=== PATIENT | male | born 1970 | race Caucasian/White ===

== ENCOUNTER 2020-04-12 00:05 | Outpatient (CLI) | payer OTHER, SELFPAY ==
[2020-04-12 19:22] LABS: SARS-CoV-2 RNA PCR Negative
== END 2020-04-12 00:06 | disposition home or self-care (01) ==
LOC: ANHCOVIDDT 00:06
PROVIDERS: PCP Nurse Practitioner Family; Visit Provider Internal Medicine Gastroenterology
DX: Z01.812 Encounter for preprocedural laboratory examination (principal); Z11.59 Encounter for screening for other viral diseases
CPT/HCPCS: 87635; C9803; U0003

== ENCOUNTER 2020-04-15 01:56 | Day surgery (SDC) | payer OTHER, SELFPAY ==
[2020-04-11 12:18] VITALS: BMI 25.9
[2020-04-15 08:16] VITALS: BP 131/82; PULSE 66; RESP 16; TEMP 36.5; O2SAT 98; BMI 25.5
--- NOTE | 2020-04-15 08:24 | P.HP_ITS ---
History of Present Illness History of Present Illness Consent: Risks, benefits, and alternatives have been discussed and questions answered. Patient agrees to proceed with procedure. Chief complaint: Neoplasm Screening Narrative: Eulalio Chavarria is a 49 year old W male referred for his 1st screening colonoscopy. Patient is asymptomatic and there is no known family history of colon polyps or colon cancer. [facility] Past Medical History Medical History (Updated 04/15/20 @ 08:25 by Chon Ramos MD) Dyslipidemia Hypertension Hypothyroidism Surgical History Surgical History (Updated 04/15/20 @ 08:26 by Chon Ramos MD) History of arthroscopy of left shoulder S/P left knee arthroscopy Meds Home Medications and Allergies Home Medications Medication Instructions Recorded Confirmed Type amlodipine 5 mg PO QAM 04/11/20 04/11/20 History atorvastatin 20 mg PO QAM 04/11/20 04/11/20 History levothyroxine 125 mcg PO QAM 04/11/20 04/11/20 History losartan 100 mg PO QAM 04/11/20 04/11/20 History Allergies Allergy/AdvReac Type Severity Reaction Status Date / Time Penicillins Allergy Unknown Swelling Verified 04/15/20 08:15 Vital Signs Vital Signs - 24 hr 04/15/20 08:16 Temperature 36.5 C Pulse Rate 66 Respiratory Rate 16 Blood Pressure 131/82 Pulse Oximetry 98 Exam Const: Orientation/consciousness: patient oriented x3 Resp: Auscultation: clear to auscultation bilaterally Cardio: Rate: regular rate Rhythm: regular rhythm Heart sounds: no murmurs GI: GI Palp: Yes Soft to palpation, No Tenderness to palpation present (GI), Yes No hepatosplenomegaly present and No Palpable mass present Auscultation: normal bowel sounds Neuro: General: patient oriented x3 and no focal motor deficits Extrem: General: no pedal edema Assessment and Plan Additional Plan screening colonoscopy in average risk patient
[2020-04-15] MEDS: LACTATED RINGERS 1,000 ML 150 ML IV CONT (08:30)
--- NOTE | 2020-04-15 08:34 | WPDANESEPPF ---
Anes - Initial Pre Proc Eval Procedure: Operation Date: 04/15/20 09:30 Proposed Procedures p Screening Colonoscopy - Chon Ramos MD Date/Time: 04/15/20 08:34 Surgeon: Chon Ramos MD Pre Op Diagnosis: Neoplasm Screening Patient Data Age: 49 Gender: M Height: 6 ft Weight: 85.4 kg Last Vital Signs Temp 36.5 C 04/15/20 08:16 Pulse 66 04/15/20 08:16 Resp 16 04/15/20 08:16 BP 131/82 04/15/20 08:16 Pulse Ox 98 04/15/20 08:16 Allergies Allergy/AdvReac Type Severity Reaction Status Date / Time Penicillins Allergy Unknown Swelling Verified 04/15/20 08:15 Home Medications Medication Instructions Recorded Confirmed Type amlodipine 5 mg PO QAM 04/11/20 04/11/20 History atorvastatin 20 mg PO QAM 04/11/20 04/11/20 History levothyroxine 125 mcg PO QAM 04/11/20 04/11/20 History losartan 100 mg PO QAM 04/11/20 04/11/20 History Patient hx anesthesia problems: none Family hx anesthesia problems: none PMFSH Past Medical History Medical History Dyslipidemia Hypertension Hypothyroidism Surgical History Surgical History History of arthroscopy of left shoulder S/P left knee arthroscopy Anes - Eval Final PreProcedure Day of Procedure 04/15/20 08:34 Patient weight: normal Heart: regular rate and rhythm Lungs: clear to auscultation Airway: Mallampati scale class 1 Neurological: alert and oriented Last oral intake: >/= 8 hours ASA classification: II Emergent: no Anesthetic plan: proceed Anesthesia type and monitoring: general GIVS and standard monitoring Informed Consent: The patient's anesthetic plan and its attendant risks and benefits were discussed with the patient/family/POA. Questions were solicited and answers provided to the satisfaction of the patient/family/POA.
[2020-04-15 10:10] VITALS: BP 106/69; PULSE 65; RESP 15; O2SAT 94
[2020-04-15 10:22] VITALS: BP 106/66; PULSE 62; RESP 13; O2SAT 94
[2020-04-15 10:30] VITALS: BP 112/72; PULSE 54; RESP 17; O2SAT 96
[2020-04-15 10:46] VITALS: BP 121/82; PULSE 56; RESP 19; O2SAT 97
--- NOTE | 2020-04-15 10:49 | SUR.PHASEII ---
MD Arellano came out to speak with pt at 1016. pt still sleeping at that time. stated exam was normal to have pt call if he has further questions. pt notified.
== END 2020-04-15 10:51 | disposition home or self-care (01) ==
PROVIDERS: PCP Nurse Practitioner Family; Visit Provider Internal Medicine Gastroenterology
PROC: 0DJD8ZZ Inspection of Lower Intestinal Tract, Via Natural or Artificial Opening Endoscopic (ICD-10-PCS; CPT 45378; principal; 2020-04-15 09:30)
DX: Z12.11 Encounter for screening for malignant neoplasm of colon (principal); K64.0 First degree hemorrhoids; K64.4 Residual hemorrhoidal skin tags; I10 Essential (primary) hypertension; E78.5 Hyperlipidemia, unspecified; E03.9 Hypothyroidism, unspecified; Z79.899 Other long term (current) drug therapy
CPT/HCPCS: G0121; 87635; C9803; J2704; J7120; U0003

== ENCOUNTER → 2020-06-13 16:36 | Outpatient (CLI) | payer OTHER, SELFPAY ==
--- NOTE | ~2020-06-13 | XR_ITS ---
XR knee LT 3V 06/13/2020 16:46 INDICATION: Left knee pain PROCEDURE: 3 views left knee COMPARISON: 07/25/2010. FINDINGS: Fracture, dislocation or subluxation is not identified. No significant joint effusion. The soft tissues appear within normal limits. No foreign bodies are identified. IMPRESSION: 1: NO ACUTE BONE OR JOINT ABNORMALITY IDENTIFIED. Reviewed, dictated and finalized at location B.
== END ==
PROVIDERS: PCP Nurse Practitioner Family; Visit Provider Nurse Practitioner Family
DX: M25.562 Pain in left knee (principal)
CPT/HCPCS: 73562

== ENCOUNTER → 2020-08-07 11:00 | Outpatient (CLI) | payer OTHER, SELFPAY ==
--- NOTE | ~2020-08-07 | MR_ITS ---
EXAMINATION: MR knee LT wo con DATE: 08/07/2020 11:42 INDICATION: Meniscal tear presenting with worsening generalized and posterior left knee pain TECHNIQUE: Magnetic resonance imaging (MRI) of the left knee was performed without intravenous contra st. Sequences included coronal PD-weighted FSE, coronal PD-weighted FS FSE, sagittal T2-weighted FSE , sagittal PD-weighted FS FSE and axial PD weighted fat saturated FSE. COMPARISON: Left knee radiographs dated 06/13/2020 and MRI dated 07/31/2010 FINDINGS: Medial compartment: Medial meniscus is normal. Shallow chondral ulceration and fissuring involving less than 50% the cart ilage thickness bilaterally at the junction of the anterior to central weightbearing medial femoral c ondyle. Lateral compartment: Lateral meniscus is normal. Partial-thickness chondral fissure involving less than 50% the cartilage thickness extending horizontally across the anterior weightbearing lateral femoral condyle the level of the free edge of the posterior horn of the meniscus. Additional small region of partial-thickness chondral fissuring without degenerative subchondral changes at the lateral aspect of the posterior mo st weightbearing lateral femoral condyle. Mild chondral surface regularity along the posterior aspect of the lateral tibial plateau. Patellofemoral compartment: Interval decrease in patellar cartilage thickness with chondral surface irregularity involving signif icant portions of the medial and lateral facets and intervening apical ridge. Small deeper chondral u lceration with tiny focus of subarticular edema at the central aspect of the medial facet. Additional deep chondral ulceration with surface irregularity at the caudal two thirds of the trochlear groove and immediately adjacent portions of the medial and lateral patellar facets. Suggestion of tiny centr al subchondral osteophytes at the central portion of the trochlear groove. Less severe partial thickn ess cartilage loss with smooth chondral surface along the more lateral aspect of the lateral trochlea . Ligaments and tendons: Posterior cruciate ligament is normal. The anterior cruciate ligament demonstrates a normal angle rel ative to Blumenstaat's line. It appears thickened with increased intrasubstance signal surrounding in tact appearing linear fibers with a celery stalk appearance. No secondary signs of ligament tear an d this is consistent with mucoid degeneration without discrete tear. The medial collateral ligament a nd fibular collateral ligament complex are normal. The extensor mechanism is normal. The visualized m edial and lateral hamstring tendons as well as the iliotibial band are normal. Fluid: Physiologic amount of fluid in the joint space. No loose osteochondral bodies identified. Osseous/other: Bone alignment is normal. Small low signal intensity at the posterior aspect of the lateral femoral c ondyle. No fracture or pathologic marrow replacing process. And seen is some scarring in Hoffa's fat pad consistent with history of prior arthroscopy. IMPRESSION: 1. Mucoid degeneration of the anterior cruciate ligament without discrete tear. Correlate with physic al exam to assess for degree of residual functional integrity. 2. Still mild tricompartmental osteoarthritis with interval progression of chondromalacia in all 3 co mpartments as detailed above. Reviewed, dictated and finalized at location A. [employer] IMPRESSION: 1. Mucoid degeneration of the anterior cruciate ligament without discrete tear. Correlate with physical exam to assess for degree of residual functional integ rity. 2. Still mild tricompartmental osteoarthritis with interval progression of bisi dromalacia in all 3 compartments as detailed above.
== END ==
PROVIDERS: Visit Provider Specialist
DX: M17.12 Unilateral primary osteoarthritis, left knee (principal)
CPT/HCPCS: 73721

== ENCOUNTER → 2021-07-31 17:21 | Outpatient (CLI) | payer OTHER, SELFPAY ==
--- NOTE | ~2021-07-31 | MR_ITS ---
EXAMINATION: MR knee LT wo con DATE: 07/31/2021 18:07 INDICATION: Left knee pain TECHNIQUE: Magnetic resonance imaging (MRI) of the left knee was performed without intravenous contra st. Sequences included coronal PD-weighted FSE, coronal PD-weighted FS FSE, sagittal T2-weighted FSE , sagittal PD-weighted FS FSE and axial PD weighted fat saturated FSE. COMPARISON: None. FINDINGS: Medial compartment: The medial meniscal body is small suggesting prior partial meniscectomy. There is truncation of the i nner most free edge of the posterior horn which could also be related to prior partial meniscectomy a lthough typically this would come for a more acute point and could not exclude a recurrent tear. The margin of the inner free edge of the posterior horn however appears relatively smooth when viewed en face in the axial images. There is shallow chondral ulceration along the lateral half of the central weightbearing medial femoral condyle. Lateral compartment: Medial displaced could handle tear of the lateral meniscus with a meniscal flap extending anteroposte riorly over the lateral intercondylar eminence. Deep chondral fissure without degenerative subchondra l changes at the central aspect of the anterior weightbearing lateral femoral condyle. Small central subchondral osteophyte underlying additional region of partial-thickness cartilage loss at the vp integrity ior most weightbearing lateral femoral condyle. Patellofemoral compartment: Partial-thickness cartilage loss which appears to involve greater than 50% the cartilage thickness in volving portions of the patellar apical ridge and lateral side of the medial patellar facet. Addition al deep chondral ulceration with additional small underlying central subchondral osteophytes at the t rochlear groove and immediately adjacent medial and lateral trochlea. Ligaments and tendons: Posterior cruciate ligament is normal. The anterior cruciate ligament demonstrates a normal angle rel ative to Blumensaat's line. It appears thickened with increased intrasubstance signal surrounding int act appearing linear fibers with a celery stalk appearance. Consistent with mucoid degeneration wit hout discrete tear. There is prominent thickening without significant increased signal or surrounding edema along the proximal third of the medial collateral ligament consistent with scarring related to chronic sprain. The fibular collateral ligament complex is normal. The extensor mechanism is normal. The visualized medial and lateral hamstring tendons as well as the iliotibial band are normal. Fluid: Physiologic amount of fluid in the joint space. No loose osteochondral bodies identified. Small Cross 's cyst. Osseous/other: There is a linear likely trial tract extending superolaterally from the intercondylar notch into the lateral femoral condyle near the insertion of the anterior cruciate ligament. Correlate with surgical history. Otherwise normal marrow signal. No fracture or abnormal marrow replacing process. There is scarring at the medial and lateral aspects of Hoffa's fat pad consistent with prior arthroscopy. IMPRESSION: 1. Displaced bucket-handle tear of the lateral meniscus. 2. Slight truncation of the inner free edge of the posterior horn of the medial meniscus which could be related to meniscal tear or more likely residual change of prior partial meniscectomy. Correlate w ith surgical history. 3. Mucoid degeneration the anterior cruciate ligament without discrete tear. There is however a possi ble nodule tract arising near its femoral footplate potentially anchor site for prior repair. Again c orrelate with details of prior surgical history. Correlate with physical exam to assess for degree of residual functional integrity. 4. Mild tricompartmental osteoarthritis with extensive moderate and high-grade chondromalacia in the patellofemoral compartme
== END ==
PROVIDERS: Visit Provider Specialist
DX: M17.12 Unilateral primary osteoarthritis, left knee (principal); M71.22 Synovial cyst of popliteal space [Baker], left knee
CPT/HCPCS: 73721

== ENCOUNTER 2022-01-07 23:41 | Emergency (ER) | payer OTHER, SELFPAY ==
--- NOTE | ~2022-01-07 | XR_ITS ---
EXAMINATION: XR abdomen/kub 1V INDICATION: Left ureterolithiasis TECHNIQUE: Supine view the abdomen is obtained. COMPARISON: CT from today FINDINGS: Contrast from earlier CT partially opacifies the urinary tract. There is mild left hydroure teronephrosis continuing into the pelvis. The left distal ureteral stone on CT is not definitely iden tified, likely obscured by contrast within the urinary bladder. The bowel gas pattern is normal. IMPRESSION: 1. Known left ureteral stone not definitely identified, likely obscured by contrast in the urinary bl adder. Reviewed, dictated and finalized at location A. IMPRESSION: 1. Known left ureteral stone not definitely identified, likely obscured by cont rast in the urinary bladder.
--- NOTE | ~2022-01-07 | CT_ITS ---
EXAMINATION: CT abdomen pelvis w con INDICATION: Left flank pain TECHNIQUE: Computed tomographic images of the abdomen and pelvis were obtained after the administrati on of 100 cc of Omnipaque 350 intravenous contrast. The dose-length product (DLP) was 367.42 mGy-cm. Automated exposure control and iterative reconstruction technique were employed. COMPARISON: 12/29/2011 FINDINGS: Minimal dependent atelectasis is present in the lung bases. The heart size is normal. The l iver, spleen, pancreas, gallbladder, and adrenal glands are normal. There is a 5 mm stone of the dist al left ureter which causes mild left hydroureteronephrosis. There are multiple nonobstructing stones of the left kidney which measure up to 7 mm. There is a 7 mm nonobstructing stone of the right kidne y. No pathologically enlarged abdominal or pelvic lymph nodes are identified. There is no free intrap eritoneal gas or evidence of bowel obstruction. There is moderate lumbar spondylosis. A small fat-con taining umbilical hernia is noted. IMPRESSION: 1. 5 mm stone of the distal left ureter which causes mild left hydroureteronephrosis. 2. Bilateral nephrolithiasis. Reviewed, dictated and finalized at location A. IMPRESSION: 1. 5 mm stone of the distal left ureter which causes mild left hydroureteroneph rosis. 2. Bilateral nephrolithiasis.
[2022-01-07 23:44] VITALS: BP 148/91; PULSE 55; RESP 18; TEMP 36.5; O2SAT 99
--- NOTE | 2022-01-07 23:45 | ED.GENADULT ---
HPI - General Adult General Chief complaint: Urogenital-Male <Yoly Cueva PA-C - Last Filed: 01/08/22 03:23> Stated complaint: LT FLANK PAIN <MARIAN Castelan Last Filed: 01/08/22 03:23> Source: patient <MARIAN Castelan Last Filed: 01/08/22 03:23> Mode of arrival: EMS <MARIAN Castelan Last Filed: 01/08/22 03:23> Limitations: no limitations <MARIAN Castelan Last Filed: 01/08/22 03:23> History of Present Illness HPI narrative: Patient is a 51-year-old male who presents to the ED via EMS with report of left flank pain. Patient reports he developed sudden onset of left flank pain 2 hours ago while at home. He tried taking Tylenol at home without relief. EMS was called. He was given 4 mg of morphine and Zofran in the ambulance. Patient denies any improvement of his pain with the morphine. He does report the pain radiates around to his left lower abdomen. He has had some nausea due to the pain, but denies any vomiting, fever, chills, dysuria, hematuria, urinary frequency, diarrhea, constipation. Patient does have a history of a kidney stone 25 years ago. He has seen a urologist in [facility] before. <Yoly Cueva PA-C - Last Filed: 01/08/22 03:23> Related Data Home medications: Home Medications Medication Instructions Recorded Confirmed amlodipine 10 mg PO QAM 04/11/20 04/11/20 atorvastatin 20 mg PO QAM 04/11/20 04/11/20 levothyroxine 150 mcg PO QAM 04/11/20 04/11/20 losartan 100 mg PO QAM 04/11/20 04/11/20 hydrochlorothiazide 12.5 mg PO DAILY 01/07/22 01/07/22 <MARIAN Castelan Last Filed: 01/08/22 03:23> Allergies/adverse reactions: Allergies Allergy/AdvReac Type Severity Reaction Status Date / Time Penicillins Allergy Unknown Swelling Verified 01/07/22 23:49 <MARIAN Castelan Last Filed: 01/08/22 03:23> Review of Systems Review of Systems: CONSTITUTIONAL: Denies fever, chills. CARDIOVASCULAR: Denies chest pain. RESPIRATORY: Denies dyspnea. GASTROINTESTINAL: Reports L lower ABD pain, nausea. Denies vomiting, constipation, or diarrhea. GENITOURINARY: Denies dysuria or hematuria. MUSCULOSKELETAL: Reports L flank pain. Denies joint pain, or myalgia. NEUROLOGIC: Denies headache, numbness, or weakness. <Yoly Cueva PA-C - Last Filed: 01/08/22 03:23> All systems reviewed & are unremarkable except as noted in HPI and below <Yoly Cueva PA-C - Last Filed: 01/08/22 03:23> PMFSH Past Medical History Medical History: Medical History Dyslipidemia Hypertension Hypothyroidism <Yoly Cueva PA-C - Last Filed: 01/08/22 03:23> Surgical History Surgical History: Surgical History History of arthroscopy of left shoulder S/P left knee arthroscopy <Yoly Cueva PA-C - Last Filed: 01/08/22 03:23> Social History Social History: Social History (Updated 01/08/22 @ 02:34 by Yoly Cueva PA-C) Smoking status: Never smoker <Yoly Cueva PA-C - Last Filed: 01/08/22 03:23> Exam Narrative: GENERAL: Well-nourished, non-toxic, in mild acute acute distress. HEAD: Normocephalic, atraumatic. NECK: Supple. No adenopathy, no masses. RESPIRATORY: Airway patent, respirations nonlabored. Clear to auscultation bilaterally, no rales, rhonchi, wheezing. CARDIOVASCULAR: Regular rate and rhythm without murmurs, rubs, or gallops. Peripheral pulses 2+ and equal bilaterally. ABDOMINAL: Soft, mild tenderness to palpation of LLQ and suprapubic ABD, nondistended, no hepatosplenomegaly. Normoactive BS. L CVA tenderness to percussion. MUSCULOSKELETAL: Moves all extremities. Strength/ROM intact without gross deformities or TTP. SKIN: Warm, dry, normal color. No rashes. NEURO: A&O X3. Speech clear. Cranial nerves II-XII grossly intact. Steady gait. No ataxic movements. PSYCHIATRIC: Appropriate mood and affect. Normal inter
[2022-01-08] MEDS: KETOROLAC 30 MG/ML VIAL (*BKC) IV PUSH (00:02)
[2022-01-08 00:17] LABS: Basophils Percent Auto 0.3 % (0.2-1.2); Eosinophils Percent Auto 0.3 % (0-4.4); Hematocrit 43.9 % (42.0-52.0); Immature Granulocyte Absolute 0.05 K/mm3 (0.00-0.031); Immature Granulocyte Percent A 0.5 % (0-0.5); Lymphocytes Absolute Auto 1.86 K/mm3 (0.9-3.2); Lymphocytes Percent Auto 17.5 % (18.3-44.2); Mean Corpuscular HGB Conc 31.9 g/dl (32-36); Mean Corpuscular Volume 97.1 fl (80-100); Mean Platelet Volume 10.1 fl (7.4-10.4); Monocytes Absolute Auto 0.7 K/mm3 (0.1-0.6); Monocytes Percent Auto 6.6 % (2.6-8.5); Neutrophils Percent Auto 74.8 % (45.5-73.1); Platelet Count Result 173 k/mm3 (150-375); Red Blood Count 4.52 M/mm3 (4.6-6.20); Red Cell Distribution Width 12.4 % (11.5-14.5); White Blood Count 10.6 K/mm3 (4.5-10.0)
--- NOTE | 2022-01-08 00:20 | PC.NURSE ---
Pt aware of need for urine specimen but states he is unable to void at this time.
[2022-01-08 00:30] LABS: Alanine Aminotransferase 19 U/L (4-50); Albumin Level 4.4 g/dL (3.5-5.1); Alkaline Phosphatase 48 U/L (38-126); Anion Gap 6 mmol/L (8-16); Aspartate Amino Transferase 26 U/L (17-59); Bilirubin,Total 0.5 mg/dL (0.2-1.3); Blood Urea Nitrogen 22 mg/dL (9-20); Calcium 8.8 mg/dL (8.4-10.2); Carbon Dioxide 30 mmol/L (22-30); Chloride 103 mmol/L (98-107); Estimated CRCL calculation 84 ml/min; Estimated Glomerular Filt Rate > 60; Glucose 120 mg/dL (65-110); Potassium 3.6 mmol/L (3.4-5.0); Sodium 139 mmol/L (137-145)
[2022-01-08 00:32] VITALS: BP 135/86
[2022-01-08] MEDS: HYDROmorphone HCL INJ (*CRX) 1 MG/ML SYR IV PUSH (01:05)
[2022-01-08] MEDS: SODIUM CHLORIDE 0.9% IV 1,000 ML 999 ML IV CONT (02:20)
[2022-01-08 03:01] LABS: Appearance Urine Clear (Clear); Bilirubin Urine Negative (Negative); Blood Urine 2+ (Negative); Color Urine Yellow (Yellow); Glucose Urine UA Negative (Negative); Ketones Urine Negative (Negative); Leukocyte Esterase Ur Negative LEU/UL (Negative); Nitrate Urine Negative (Negative); Protein Urine Negative (Negative); Specific Grav Ur 1.015 (1.001-1.035); Urobilinogen Urine 0.2 mg/dL (<2.0); pH Urine 8.5 (5.0-9.0)
[2022-01-08 03:02] LABS: Add Urine Microscopic? YES; Mucus Urine Few /lpf; RBC Urine 51-75 /hpf (0-2); Squamous Epithelial Cell Urine Rare /hpf (Few)
[2022-01-08] MEDS: HYDROcodone/acetaminophen (*CRX) 5-325 MG TABLET 2 TAB PO (03:25)
[2022-01-08 03:32] VITALS: BP 131/84; PULSE 75; RESP 18; O2SAT 96
== END 2022-01-08 03:35 | disposition home or self-care (01) ==
PROVIDERS: Physician Assistant; Emergency Provider Emergency Medicine; PCP Nurse Practitioner Family
DX: N13.2 Hydronephrosis with renal and ureteral calculous obstruction (principal); E78.5 Hyperlipidemia, unspecified; I10 Essential (primary) hypertension; E03.9 Hypothyroidism, unspecified
CPT/HCPCS: 36415; 74018; 74177; 80053; 81001; 85025; 96361; 96374; 96375; 99284; A4565; A9270; J1170; J1885; J7030; Q9967

== ENCOUNTER 2022-01-09 08:45 | Day surgery (SDC) | payer OTHER, SELFPAY ==
[2022-01-09] VITALS (30 sets, daily range): BP systolic 108–171; BP diastolic 69–95; PULSE 45–74; RESP 10–19; TEMP 36.4–36.6; O2SAT 94–100
--- NOTE | ~2022-01-09 | XR_ITS ---
EXAMINATION: XR fluoroscopy no charge EXAM DATE: 01/09/2022 13:59 INDICATION: Stone removal. TECHNIQUE: Fluoroscopy used during XR fluoroscopy no charge performed by Dr. Richard Stevenson MD. Radiologist was not present for the imaging or procedure. Total fluoroscopic time of 16 seconds. T he DAP for this procedure was 0.17 mGym2. A total of 3 images sent to PACS from the exam. FINDINGS: Fluoroscopic images demonstrates left nephrolithiasis. Correlate with procedure note. IMPRESSION: Fluoroscopy used during stone removal. Reviewed, dictated and finalized at location B.
--- NOTE | ~2022-01-09 | XR_ITS ---
EXAMINATION: XR abdomen/kub 1V INDICATION: Left flank pain, kidney stone TECHNIQUE: Supine views of the abdomen were obtained on 2 radiographs. COMPARISON: 01/08/2022 FINDINGS: A 4 mm calcification projects in the left pelvis in the expected location of the left dista l ureter. There are stones measuring 8 mm and 9 mm in the left kidney and 9 mm in the right kidney. T he bowel gas pattern is normal. There is mild osteoarthritis of the hips. The lung bases are clear. P hleboliths are noted in the right pelvis. IMPRESSION: 1. Stone in the expected location of the left distal ureter. 2. Bilateral nephrolithiasis. Reviewed, dictated and finalized at location A.
--- NOTE | 2022-01-09 09:08 | ED.GENADULT ---
HPI - General Adult General Chief complaint: Back Pain/Injury Stated complaint: kidney stone/took too much pain meds Time Seen by Provider: 01/09/22 08:50 Source: patient, family and RN notes reviewed Mode of arrival: ambulatory Limitations: no limitations History of Present Illness HPI narrative: This is a 51 year old male who presents for evaluation of left flank pain and possible overdose. Patient was diagnosed with left distal ureteral kidney stone early yesterday morning. He was discharged home with prescription for [address] [facility]. Patient states he has continued to have severe pain intermittently yesterday, so he has been taking multiple doses of pain medication and Motrin. Patient denies having any pain now. His is concerned that he may have overdosed. Patient was prescribed 12 pills and he only has 1 left. He reports he last took 2 [facility] at 630 am. He also took unknown amount of Motrin. He denies nausea, vomiting, or fever. Patient is not suicidal. He was trying to get rid of the pain. Related Data Home Medications Medication Instructions Recorded Confirmed amlodipine 10 mg PO QAM 04/11/20 04/11/20 atorvastatin 20 mg PO QAM 04/11/20 04/11/20 levothyroxine 150 mcg PO QAM 04/11/20 04/11/20 losartan 100 mg PO QAM 04/11/20 04/11/20 hydrochlorothiazide 12.5 mg PO DAILY 01/07/22 01/07/22 Allergies Allergy/AdvReac Type Severity Reaction Status Date / Time Penicillins Allergy Unknown Swelling Verified 01/07/22 23:49 Review of Systems Review of Systems: All systems reviewed & are unremarkable except as noted in HPI and below PMFSH Past Medical History Medical History Dyslipidemia Hypertension Hypothyroidism Nephrolithiasis Surgical History Surgical History History of arthroscopy of left shoulder S/P left knee arthroscopy Social History Social History Smoking status: Never smoker Gender identity (if verbalized by the patient): Male Sexual Orientation (if Verbalized by the Patient): Straight or Heterosexual Exam Const: General: no acute distress and alert Orientation/consciousness: patient oriented x3 Eyes: EOM: EOMs intact bilaterally Chest: Chest palpation & inspection: normal inspection of the chest Resp: Effort & Inspection: normal respiratory effort and no retractions Auscultation: clear to auscultation bilaterally Cardio: Rate: regular rate Rhythm: regular rhythm Heart sounds: no murmurs GI: GI Palp: Yes Soft to palpation, No Tenderness to palpation present (GI) and No Guarding due to palpation present (GI) Auscultation: normal bowel sounds : General: Yes no CVA tenderness Back/Spine/Pelvis: Back: no CVA tenderness Skin: General skin exam: normal color Rashes: no rashes Neuro: General: patient oriented x3, moves all extremities and CN's II-XI intact bilaterally Psych: Mental Status: mental status grossly normal Affect: normal affect Course Reevaluation(s) Reevaluation #1: Patient is stating his pain is returning but it is bearable. His labs are unremarkable. No signs of tylenol overdose. I discussed with patient and his that he will be taken to OR for his kidney stone. Date: 01/09/22 Time: 12:00 Consultations Consultation #1: I Discussed case with Dr. Perez. He states he will take patient to OR for stone extraction. Date: 01/09/22 Time: 11:30 Vital Signs Vital signs: Vital Signs Pulse Rate 56 L 01/09/22 08:53 Respiratory Rate 18 01/09/22 08:53 Pulse Oximetry 97 01/09/22 08:53 Temperature 97.5 F L 01/09/22 14:00 Pulse Rate 45 L 01/09/22 15:41 Respiratory Rate 16 01/09/22 15:41 Blood Pressure 141/86 H 01/09/22 15:41 Pulse Oximetry 96 01/09/22 15:00 Medical Decision Making Vital Signs Vital Signs: Vital Signs Pulse Rate 56 L 01/09/22 08:53 Re
[2022-01-09 09:26] LABS: Basophils Percent Auto 0.2 % (0.2-1.2); Eosinophils Absolute Auto 0.1 K/mm3 (0-0.3); Eosinophils Percent Auto 0.5 % (0-4.4); Hematocrit 45.5 % (42.0-52.0); Hemoglobin 14.5 g/dL (14.0-18.0); Immature Granulocyte Absolute 0.03 K/mm3 (0.00-0.031); Immature Granulocyte Percent A 0.3 % (0-0.5); Lymphocytes Percent Auto 20.8 % (18.3-44.2); Mean Corpuscular HGB Conc 31.9 g/dl (32-36); Mean Corpuscular Volume 97.4 fl (80-100); Mean Platelet Volume 10.2 fl (7.4-10.4); Monocytes Absolute Auto 0.6 K/mm3 (0.1-0.6); Monocytes Percent Auto 6.7 % (2.6-8.5); Neutrophils Absolute Auto 6.5 K/mm3 (1.3-6.7); Neutrophils Percent Auto 71.5 % (45.5-73.1); Platelet Count Result 182 k/mm3 (150-375); Red Blood Count 4.67 M/mm3 (4.6-6.20); Red Cell Distribution Width 12.4 % (11.5-14.5); White Blood Count 9.2 K/mm3 (4.5-10.0)
[2022-01-09 09:37] LABS: Alanine Aminotransferase 20 U/L (4-50); Alkaline Phosphatase 51 U/L (38-126); Anion Gap 7 mmol/L (8-16); Aspartate Amino Transferase 26 U/L (17-59); Bilirubin,Total 0.7 mg/dL (0.2-1.3); Blood Urea Nitrogen 13 mg/dL (9-20); Calcium 8.4 mg/dL (8.4-10.2); Carbon Dioxide 30 mmol/L (22-30); Chloride 104 mmol/L (98-107); Estimated CRCL calculation 90 ml/min; Estimated Glomerular Filt Rate > 60; Glucose 108 mg/dL (65-110); Sodium 141 mmol/L (137-145)
[2022-01-09] MEDS: ONDANSETRON INJ 4 MG/2 ML VIAL IV PUSH (09:42)
[2022-01-09] MEDS: PANTOPRAZOLE SODIUM IV 40 MG VIAL IV PUSH (09:42)
[2022-01-09] MEDS: LACTATED RINGERS 1,000 ML 999 ML IV CONT ×2 (09:43→09:48)
[2022-01-09 09:59] LABS: INR 1.1; Partial Thromboplastin Time 26.3 SECONDS (22.3-36.8); Prothrombin Time 13.8 Seconds (11.1-14.7)
[2022-01-09 10:52] LABS: Acetaminophen < 10 ug/mL (10-30)
[2022-01-09 10:54] LABS: Salicylate < 1.0 mg/dL (2-20)
[2022-01-09 11:20] LABS: Acetaminophen < 10 ug/mL (10-30); Salicylate < 1.0 mg/dL (2-20)
--- NOTE | 2022-01-09 12:06 | PM.HPGS ---
History of Present Illness History of Present Illness Consent: Risks, benefits, and alternatives have been discussed and questions answered. Patient agrees to proceed with procedure. Chief complaint: kidney stone/took too much pain meds Narrative: Eulalio Chavarria is a 51 year old male, who reports having spontaneously passed the ureteral calculus approximately 25 years ago, Presents to the ER for the 2nd time in the last 24 hours with intractable left flank pain radiating to his left lower quadrant. Today it is started to cross over to his right lower quadrant as well. This pain is associated with nausea vomiting. He denies fevers chills gross hematuria. Imaging demonstrates an obstructing 4 mm left distal ureteral calculus. additionally, he has multiple bilateral renal calculi measuring to 5 mm in left kidney and 7 mm in the right kidney. Review of Systems Cardiovascular: Cardiovascular: Denies chest pain, Denies lightheadedness, Denies palpitations and Denies dyspnea Respiratory: Respiratory: Denies dyspnea Gastrointestinal: Gastrointestinal: Denies diarrhea, Denies nausea and Denies vomiting Genitourinary: Genitourinary: Denies hematuria and Denies dysuria Endocrine: Endocrine: Denies palpitations PMF Past Medical History Medical History Dyslipidemia Hypertension Hypothyroidism Nephrolithiasis Surgical History Surgical History History of arthroscopy of left shoulder S/P left knee arthroscopy Social History Social History Smoking status: Never smoker Meds Home Medications and Allergies Home Medications Medication Instructions Recorded Confirmed Type amlodipine 10 mg PO QAM 04/11/20 04/11/20 History atorvastatin 20 mg PO QAM 04/11/20 04/11/20 History levothyroxine 150 mcg PO QAM 04/11/20 04/11/20 History losartan 100 mg PO QAM 04/11/20 04/11/20 History hydrochlorothiazide 12.5 mg PO DAILY 01/07/22 01/07/22 History hydrocodone-acetaminophen 1 tablet PO Q6H PRN #12 tablet 01/08/22 Rx ondansetron 4 mg PO Q8H PRN #12 tablet 01/08/22 Rx tamsulosin [Flomax] 0.4 mg PO DAILY #7 cap 01/08/22 Rx Allergies Allergy/AdvReac Type Severity Reaction Status Date / Time Penicillins Allergy Unknown Swelling Verified 01/07/22 23:49 Vital Signs Vital Signs - 24 hr 01/09/22 08:53 01/09/22 08:55 01/09/22 09:00 Temperature 97.9 F Pulse Rate 56 L 60 61 Respiratory Rate 18 14 14 Blood Pressure 134/84 Pulse Oximetry 97 97 96 01/09/22 09:08 01/09/22 09:15 01/09/22 09:36 Temperature Pulse Rate 74 65 Respiratory Rate 16 14 Blood Pressure 144/79 H Pulse Oximetry 99 95 01/09/22 09:45 01/09/22 09:51 01/09/22 10:00 Temperature Pulse Rate 57 L 55 L 53 L Respiratory Rate 16 14 18 Blood Pressure 135/75 Pulse Oximetry 94 97 99 01/09/22 10:01 01/09/22 10:15 01/09/22 10:30 Temperature Pulse Rate 53 L 51 L 55 L Respiratory Rate 15 16 15 Blood Pressure 133/80 Pulse Oximetry 99 100 100 Exam Const: General: no acute distress Resp: Effort & Inspection: normal respiratory effort GI: Inspection: non-distended GI Palp: No abdominal tenderness and No Guarding due to palpation present (GI) Auscultation: normal bowel sounds Assessment and Plan Assessment and plan (1) Left ureteral calculus: Code(s): N20.1 - Calculus of ureter Status: Acute (2) Bilateral renal stones: Code(s): N20.0 - Calculus of kidney Status: Acute Assessment and Plan: Cystoscopy with left ureteroscopy with stone extraction, possible laser lithotripsy, possible retrograde pyelography and ureteral stent placement Following discharge I have recommended outpatient metabolic stone evaluation and consideration for upper tract stone ESWL.
--- NOTE | 2022-01-09 12:10 | WPDHPUPDATE1 ---
History and Physical Update Update Date/Time: 01/09/22 12:10 History and Physical has been reviewed, including an updated exam of the patient. There are NO changes in the patient's condition. Risks, benefits, and alternatives have been discussed and questions answered. Patient agrees to proceed with procedure.
--- NOTE | 2022-01-09 12:21 | WPDANESEPPF ---
Anes - Initial Pre Proc Eval Procedure: Operation Date: 01/09/22 13:00 Proposed Procedures p Cystoscopy, Left Retrograde Pyelogram, Left Stone Extraction, Possible Stent Placement, Possible Holmium Laser - Richard Stevenson MD Date/Time: 01/09/22 12:21 Surgeon: Richard Stevenson MD Pre Op Diagnosis: kidney stone/took too much pain meds Patient Data Age: 51 Gender: M Height: 1.8 m Weight: 82 kg Last Vital Signs Temp 36.6 C 01/09/22 08:55 Pulse 58 L 01/09/22 12:15 Resp 13 01/09/22 12:15 BP 152/95 H 01/09/22 12:02 Pulse Ox 97 01/09/22 12:15 Allergies Allergy/AdvReac Type Severity Reaction Status Date / Time Penicillins Allergy Unknown Swelling Verified 01/07/22 23:49 Home Medications Medication Instructions Recorded Confirmed Type amlodipine 10 mg PO QAM 04/11/20 04/11/20 History atorvastatin 20 mg PO QAM 04/11/20 04/11/20 History levothyroxine 150 mcg PO QAM 04/11/20 04/11/20 History losartan 100 mg PO QAM 04/11/20 04/11/20 History hydrochlorothiazide 12.5 mg PO DAILY 01/07/22 01/07/22 History hydrocodone-acetaminophen 1 tablet PO Q6H PRN #12 tablet 01/08/22 Rx ondansetron 4 mg PO Q8H PRN #12 tablet 01/08/22 Rx tamsulosin [Flomax] 0.4 mg PO DAILY #7 cap 01/08/22 Rx Laboratory Tests 01/09/22 01/09/22 01/09/22 09:16 09:16 09:16 WBC 9.2 K/mm3 K/mm3 (4.5-10.0) RBC 4.67 M/mm3 M/mm3 (4.6-6.20) Hgb 14.5 g/dL g/dL (14.0-18.0) Hct 45.5 % % (42.0-52.0) MCV 97.4 fl fl (80-100) MCH 31.0 pg pg (26-34) MCHC 31.9 g/dl L g/dl (32-36) RDW 12.4 % % (11.5-14.5) Plt Count 182 k/mm3 k/mm3 (150-375) MPV 10.2 fl fl (7.4-10.4) Immature Gran % (Auto) 0.3 % % (0-0.5) Neut % (Auto) 71.5 % % (45.5-73.1) Lymph % (Auto) 20.8 % % (18.3-44.2) [place] % (Auto) 6.7 % % (2.6-8.5) Eos % (Auto) 0.5 % % (0-4.4) Baso % (Auto) 0.2 % % (0.2-1.2) Lymph # (Auto) 1.90 K/mm3 K/mm3 (0.9-3.2) [place] # (Auto) 0.6 K/mm3 K/mm3 (0.1-0.6) Eos # (Auto) 0.1 K/mm3 K/mm3 (0-0.3) Baso # (Auto) 0.0 K/mm3 K/mm3 (0.0-0.1) Abs Immat Gran (auto) 0.03 K/mm3 K/mm3 (0.00-0.031) Absolute Neuts (auto) 6.5 K/mm3 K/mm3 (1.3-6.7) Absolute Nucleated RBC 0.0 K/mm3 K/mm3 (0.0-0.012) Nucleated RBC % 0.0 % % (0.0-0.2) PT 13.8 Seconds Seconds (11.1-14.7) INR 1.1 APTT 26.3 SECONDS SECONDS (22.3-36.8) Sodium 141 mmol/L mmol/L (137-145) Potassium 4.0 mmol/L mmol/L (3.4-5.0) Chloride 104 mmol/L mmol/L (98-107) Carbon Dioxide 30 mmol/L mmol/L (22-30) Anion Gap 7 mmol/L L mmol/L (8-16) BUN 13 mg/dL D mg/dL (9-20) Creatinine 0.90 mg/dL mg/dL (0.7-1.3) Estim Creat Clear Calc 90 ml/min ml/min Estimated GFR > 60 (59 - ) Glucose 108 mg/dL mg/dL (65-110) Calcium 8.4 mg/dL mg/dL (8.4-10.2) Total Bilirubin 0.7 mg/dL mg/dL (0.2-1.3) AST 26 U/L U/L (17-59) ALT 20 U/L U/L (4-50) Alkaline Phosphatase 51 U/L U/L (38-126) Total Protein 7.0 g/dL g/dL (6.3-8.2) Albumin 4.0 g/dL g/dL (3.5-5.1) Salicylates Acetaminophen 01/09/22 01/09/22 01/09/22 09:16 09:16 10:57 WBC RBC Hgb Hct MCV MCH MCHC RDW Plt Count MPV Immature Gran % (Auto) Neut % (Auto) Lymph % (Auto) [place] % (Auto) Eos % (Auto) Baso % (Auto) Lymph # (Auto) [place] # (Auto) Eos # (Auto) Baso # (Auto) Abs Immat Gran (auto)
[2022-01-09] MEDS: LACTATED RINGERS 1,000 ML 30 ML IV CONT (13:28)
[2022-01-09] MEDS: ceFAZolin SODIUM 1 GM VIAL 2 GM IV PUSH (13:38)
[2022-01-09] MEDS: KETOROLAC 30 MG/ML VIAL (*BKC) IV PUSH (13:47)
[2022-01-09] MEDS: LIDOCAINE HCL 2% GEL UROJET 10 ML PKG MUCOUS MEM (13:52)
--- NOTE | 2022-01-09 13:52 | P.OP_ITS ---
Procedure Note - Detailed Date of Procedure 01/09/22 Pre-op Diagnosis Left ureteral stone Post-op Diagnosis Same Procedure Performed Cystoscopy, left ureteroscopy with stone extraction Surgeon Richard Stevenson MD Anesthesia General Description of Procedure The patient was brought to the operative suite where he is prepped and draped in a routine sterile fashion while in the dorsal lithotomy position after the uneventful induction of a general LMA anesthetic. A 19F rigid cystoscope was placed in the bladder. There are no urethral strictures. His prostatic urethra measures, approximately, 1.5cm with no median lobe enlargement. The bladder mucosa was endoscopically normal without hyperemia or neoplasm. There was a single, orthotopic ureteral orifice bilaterally. A 0.035 glidewire was advanced into the left renal pelvis under fluoroscopy. The distal ureter was dilated with an 8F/10F ureteral dilator. Ureteroscopy was undertaken with a short, tapered, semi-rigid ureteroscope and the stone was extracted with ease using a 1.9F Escape disposable stone basket. Due to the ease of this manipulat ion I opted not to place a ureteral stent. The patient's bladder was emptied and was taken to the recovery room having tolerated this procedure well. Estimated Blood Loss 0 Drains No Packing No Pathology Yes Complications No immediate complications Condition Stable Disposition PACU
== END 2022-01-09 15:50 | disposition home or self-care (01) ==
LOC: ANHED 12:06 → ANHSURGERY 12:17
PROVIDERS: Emergency Provider General Practice; PCP Nurse Practitioner Family; Visit Provider Urology
PROC: (CPT 52352; principal; 2022-01-09 13:00)
DX: N20.1 Calculus of ureter (principal); E03.9 Hypothyroidism, unspecified; I10 Essential (primary) hypertension; E78.5 Hyperlipidemia, unspecified; R10.9 Unspecified abdominal pain; R11.2 Nausea with vomiting, unspecified; Z79.899 Other long term (current) drug therapy
CPT/HCPCS: 52352; 36415; 74018; 80053; 80307; 82365; 85025; 85610; 85730; 88300; 96361; 96374; 96375; 99285; A9270; C1769; C9113; J0690; J1100; J1885; J2250; J2405; J2704; J3010; J7120; Q9966

== ENCOUNTER 2023-11-08 09:22 | Outpatient (CLI) | payer OTHER, SELFPAY ==
--- NOTE | ~2023-11-08 | XR_ITS ---
Supine and upright views of the abdomen Clinical history: Ureteral stone COMPARISON: 01/09/2022 Findings: Bowel gas pattern is nonspecific. No evidence for obstruction or free air. Bilateral renal stones are similar to prior exam. Osseous structures are intact. Impression: Bilateral nephrolithiasis, similar to prior exam. Reviewed, dictated and finalized at [facility]. [employer] Impression: Bilateral nephrolithiasis, similar to prior exam.
== END 2023-11-08 09:23 ==
PROVIDERS: PCP Urology; Visit Provider Urology
DX: N20.0 Calculus of kidney (principal)
CPT/HCPCS: 74018

== ENCOUNTER 2025-01-31 22:41 | Observation (INO) | payer OTHER, SELFPAY ==
--- NOTE | ~2025-01-31 | XR_ITS ---
XR abdomen/kub 1V Ordering provider: Richard Stevenson History: . Ureteral stone position . Comparison: November 08, 2023. FINDINGS: BOWEL: Nonobstructive bowel gas pattern. ORGANOMEGALY: None. SIGNIFICANT PATHOLOGIC CALCIFICATIONS: Bilateral kidney stones. Right hydronephrotic changes with sto ne in the right mid ureter and dilated ureter. OTHER: Contrast seen in the urinary bladder. No free air is seen under the diaphragm. Bilateral hip o steoarthritic changes. Bony fragment seen near to the right superior pubic ramus. IMPRESSION: NO ACUTE ABDOMINAL FINDINGS. Bilateral kidney stones. Stone in the right mid ureter with right hydronephrotic changes. Reviewed, dictated and finalized at location A.
--- NOTE | ~2025-01-31 | XR_ITS ---
INTRAOPERATIVE FLUOROSCOPY: CLINICAL HISTORY: 54 years old Male; RIGHT STONE EXTRACTION W/STENT PROCEDURE COMMENTS: Limited intraoperative fluoroscopy of the lower abdomen was performed. CUMULATIVE DOSE: 28 mGy FLUOROSCOPY TIME: 84 seconds FINDINGS/IMPRESSION: Please refer to operative note for further details. Reviewed, dictated and finalized at location A.
--- NOTE | ~2025-01-31 | CT_ITS ---
CT of the Abdomen and Pelvis: Indication: Abdominal pain Technique: 2.5 mm axial scans were obtained through the abdomen and pelvis following intravenous adm inistration of 100 cc of Omnipaque 350. Dose reduction technique was used on this scan by utilizing a utomated exposure control and iterative reconstruction technique. The dose-length product (DLP) was 5 50.38 mGy-cm. COMPARISON: 01/08/2022 Findings: Scans through the lung bases are unremarkable. The liver, spleen, pancreas, gallbladder, and adrenal glands are within normal limits. No evidence o f aortic aneurysm. No lymphadenopathy. There is a 6.5 x 4.5 mm ovoid stone at the proximal right ureter (axial image 128), with mild right h ydroureteronephrosis to this level. Additional nonobstructing right renal stones measure up to 1 cm i n diameter. Nonobstructing left renal stones are present, largest measuring 1 cm in diameter. No left ureteral stone or left hydronephrosis. No bowel obstruction or bowel wall thickening. There is no evidence to suggest acute appendicitis. Images through the pelvis were performed. Urinary bladder unremarkable. No pelvic mass seen. No ascit es. Impression: 6.5 x 4.5 mm proximal right ureteral stone with mild right hydronephrosis. Additional bilateral nonobstructing stones, as detailed above. Reviewed, dictated and finalized at location . Impression: 6.5 x 4.5 mm proximal right ureteral stone with mild right hydronephrosis. Additional bilateral nonobstructing stones, as detailed above.
--- OUTSIDE RECORDS SUMMARY | 2025-01-31 22:43 | XMS_ITS | Referral Summary ---
Author Organization [facility] [address] Address [address] [place] [address] Care Team Providers Care Brusher Warp Name Role Phone Linda Gupta RACING MANAGER Primary Care Provider + Allergies Active Allergy Reactions Criticality Noted Date Comments Penicillins Medications levothyroxine (SYNTHROID, LEVOTHROID) 112 mcg tablet TK 1 T PO QD 0 01/18/2018 Activ e atorvastatin (LIPITOR) 20 mg tablet TAKE 1 TABLET(20 MG) BY MOUTH DAILY 90 tablet 3 09/01/2022 Active hydroCHLOROthia zide (MICROZIDE) 12.5 mg capsule Take 1 capsule (12.5 mg total) by mouth daily 90 capsule 3 11/30/2022 Active amLODIPine (NORVASC) 10 mg tablet Take 1 tablet (10 mg total) by mouth daily 90 tablet 3 05/22/2024 Active losartan (COZAAR) 100 mg tablet TAKE 1 TABLET(100 MG) BY MOUTH DAILY 90 tablet 05/30/2024 Active Active Problems Problem Noted Date Diagnosed Date Essential hypertension 04/20/2018 Family history of early CAD 04/20/2018 Hypertrophy of breast 02/10/2014 Overview (12/31/2016): HYPERTROPHY OF BREAST Hypothyroidism 02/10/2014 Overview (01/01/2017): HYPOTHYROIDISM NOS Social History Tobacco Use Types Packs/Day Years Used Date Smoking Tobacco: Never Smokeless Tobacco: Never Personal Safety Answer Date Recorded Getting School Help Needed Not on file 10/12 Sex and Gender Information Value Date Recorded Sex Assigned at Not on file Legal Sex Male 12:11 AM [employer] INST[employer] Gender Identity Not on file Sexual Orientation Not on file Last Filed Vital Signs Vital Sign Reading Time Taken Comments Blood Pressure 144/82 05/20/2022 9:46 AM CDT Pulse 56 05/20/2022 9:46 AM CDT Temperature 36.6 C (97.8 F) 05/20/2022 9:46 AM CDT Respiratory Rate - - Oxygen Saturation 97% 05/20/2022 9:46 AM CDT Inhaled Oxygen Concentration - - Weight 80.3 kg (177 lb) 05/20/2022 9:46 AM CDT Height 182.9 cm (6') 05/20/2022 9:46 AM CDT Body Mass Index 24.01 05/20/2022 9:46 AM CDT Plan of Treatment Not on file Insurance [employer] [address] [id number] Care Teams Brusher Warp Relationship Specialty Start Date End Date Linda Gupta NP PCP - General Nurse Practitioner 03/17/18
--- OUTSIDE RECORDS SUMMARY | 2025-01-31 22:43 | XMS_ITS | Data Portability ---
Author Organization [facility] Benkyo Player, Main Office Address [address] [place] [address] Care Team Providers Care Deburring Technician Name Role Phone IVAN MCCARTHY Urologist Assessment No assessment recorded. Plan of Treatment Reminders Order Date Submit Date Provider Last Modified By Organization Details Last Modified Time Details Appointments None recorded . Lab PSA, serum or plasma 023 03/02/[address] (Lab), [address] [place], [address], 3 08:13:43 CMP, serum or plasma 023 03/02/20 23 [facility] (Lab), [address] [place], [address], 3 14:26:01 TSH, serum, reflex free T4 023 03/02/[address] (Lab), [address] [place], [address], 3 08:13:43 lipid panel, serum 023 03/02/[address] (Lab), [address] [place], [address], 3 08:13:42 testoste akanksha, free + total, serum 023 03/02/[address] (Lab), [address] [place], [address], 3 08:13:43 Referral None recorded . Procedures None recorded . Surgeries None recorded . Imaging None recorded . Medication Orders None recorded . Patient TargetsNo targets recorded. Patient Instructions Encounter Date Encounter Id Patient Instructions Last Modified By Organization Details Last Modified Time 03/02/2023 [id number] fu in 3 mo for thyroid, htn, lipid Fu in 1 year for wellness after 03/03/24 [email or web address] Not available 03/02/2023 18:01:38 Reason for Referral None Reported. Results Created Date Observation Date Name Description Value Unit Range Abnormal Flag Note LastModifiedBy Organization Detail LastModifiedTime Result Notes None recorded. Problems Name Problem SNOMED Code Status Onset Date Resolution Date Notes Provider Name and Address Organization Details Recorded Time Feeling stressed 658320165 Completed Not Available [facility] 3 07:32:05 Fluid level behind tympanic membrane Active Not Available [facility] 3 07:32:05 Headache 96326158 Completed Not Available [facility] 3 07:32:05 Family history of Cardiovasc ular disease 760196519 Active 2017 Not Available [facility] 3 07:32:05 Enlarged submandibu lar lymph gland 215077405 Active 2017 Not Available [facility] 3 07:32:05 Low back pain 242154903 Completed Not Available [facility] 3 07:32:06 Pain in left knee Active 2019 Not Available [facility] 3 07:32:06 Dehydratio n 76961207 Active Not Available [facility] 3 07:32:06 Elevated blood-pres sure reading without diagnosis of hypertensi on 742492971 Completed 201611/11/2018 Not Available [facility] 3 07:32:06 Sleep disorder 40815990 Completed Not Available [facility] 3 07:32:06 Hypothyroi dism 75223746 Active Not Available [facility] 3 07:32:06 Hyperlipid emia 45320581 Active Not Available [facility] 3 07:32:06 Essential hypertensi on 27284106 Active 2016 Not Available [facility] 3 07:32:06 Venous stasis 90286995 Active Not Available [facility] 3 07:32:06 Posterior rhinorrhea 42075827 Active Not Available [facility] 3 07:32:07 Fatigue 64495038 Completed 201711/11/2018 Linda Gupta NP [address] [facility] [place], [address], [place], [address] , [place] 3 17:44:40 Fatigue 16879171 Active 2022 Linda Gupta NP [address] [facility], [address], [place], [address] , [place] 3 17:44:40 Problem Notes None recorded. Medical Equipment None Reported. Allergies Allergen ID Allergen Name Allergen Category Reaction Reaction Severity Criticality Documentation Date Start Date Code Code System Note Provider Name and Address Organization Details Recorded Time 78621 Product containin g penicilli n (product) medicatio n Not available Not available Not available 11/25/2022 97846 8001 SNOMED Not Available [facility] 3 07:39:31 Medications Name Sig Start Date Stop Date Status Note LastModified by Organization Details LastModified Time atorvasta tin 40 mg tablet active Not Available Not Available Not Available levothyro xine 175 mcg tablet TK 1 T PO QAM 10/30 completed Not Available Not Available Not Available atorvasta tin 20 mg tablet TK 1 T PO QD 09/02 completed Not Available Not Available Not Available azithromy karla 250 mg tablet TAKE 2 TABLETS (500 MG) BY ORAL ROUTE ONCE DAILY FOR 1 DAY THEN 1 TABLET (250 MG) BY ORAL ROUTE ONCE DAILY FOR 4 DAYS 03/15 completed Not Available Not Available Not Available hydrocodo ne 5 mg-acetam inophen 325 mg tablet TAKE 1 TABLET BY MOUTH EVERY 6 HOURS NEEDED FOR PAIN 08/28 completed Not Available Not Available Not Available lisinopri l 20 mg tablet TK 1 T PO QD 05/25 completed increase d to 40 mg po daily. Not Available Not Available Not Available Medrol (Jayjay) 4 mg tablets in a dose pack Take as directed on pack. Directio ns for Medrol Dosepak: 1st day: 2 tablets before breakfas t, 1 tablet after lunch and after supper, and 2 tablets at bedtime. 2nd day: 1 tablet before breakfas t. 1 tablet after lunch and after supper, and 2 tablets at bedtime. 3rd day: 1 tablet before breakfas t, after lunch, after supper and at bedtime. 4th day: 1 tablet before breakfas t, after lunch and at bedtime. 5th day: 1 tablet before breakfas t and at bedtime. 6th day: 1 tablet before breakfas t active Not Available Not Available No t Available amlodipin e 5 mg tablet TK 1 T PO QD 08/28 completed Increase d to 10 mg po daily per ortho due to bp 140-150. Not Available Not Available Not Available ciproflox acin 500 mg tablet TAKE 1 TABLET BY MOUTH EVERY 12 HOURS 08/28 completed Not Available Not Available Not Available tramadol 50 mg tablet Take 1 - 2 tablet(s ) EVERY 6 HOURS PO PRN PAIN active Not Available Not Available No t Available losartan 100 mg-hydroc hlorothia zide 25 mg tablet Take 1 tablet every day by oral route. active Not Available Not Available No t Available tamsulosi n 0.4 mg capsule TAKE 1 CAPSULE BY MOUTH DAILY 03/02 completed Not Available Not Available Not Available amlodipin e 10 mg tablet 1 tab po daily active Not Available Not Available No t Available hydrocodo ne 7.5 mg-acetam inophen 325 mg tablet TAKE 1 TABLET BY MOUTH EVERY 6 HOURS NEEDED 08/28 completed Not Available Not Available Not Available levothyro xine 125 mcg tablet TAKE 1 TABLET BY MOUTH DAILY 06/24 completed Not Available Not Available Not Available levothyro xine 150 mcg tablet active Not Available Not Available Not Available hydrochlo rothiazid e 12.5 mg capsule 1 cap po daily active Not Available Not Available No t Available hydrochlo rothiazid e 25 mg tablet TK 1 T PO QD 04/04 completed Not Available Not Available Not Available zolpidem 5 mg tablet TAKE 1 TABLET BY MOUTH EVERY NIGHT AT BEDTIME active Not Available Not Available No t Available testoster one cypionate 200 mg/mL intramusc ular oil INJECT 1 ML Q 2 WEEKS INTRAMUS CULARLY 06/06 completed Not Available Not Available Not Available lisinopri l 40 mg tablet TK 1 T PO QD 03/15 completed penile numbness . Try losartan hctz Not Available Not Available Not Available ondansetr on 4 mg disintegr ating tablet DISSOLVE 1 TABLET ON THE TONGUE EVERY 8 HOURS NEEDED FOR NAUSEA OR VOMITING 08/28 completed Not Available Not Available Not Available losartan 100 mg tablet TK 1 T PO D active Not Available Not Available No t Available piroxicam 20 mg capsule TK 1 C PO QD PRN 06/06 completed Rarely uses. Not Available Not Available Not Available doxycycli ne hyclate 100 mg tablet TAKE 1 TABLET BY MOUTH EVERY 12 HOURS FOR 7 DAYS 08/28 completed Not Available Not Available Not Available levothyro xine 112 mcg tablet TAKE 1 TABLET BY MOUTH DAILY active Not Available Not Available No t Available Adult Low Dose Aspirin 81 mg tablet,de layed release Take 1 tablet every day by oral route in the morning for 90 days. active Not Available Not Available No t Available tadalafil 20 mg tablet TAKE 1/2 TO 1 TABLET BY MOUTH NEEDED active Not Available Not Available No t Available ezetimibe 10 mg-simvas tatin 20 mg tablet TAKE 1 TABLET BY MOUTH EVERY MORNING active Not Available Not Available No t Available Suprep Bowel Prep Kit 17.5 gram-3.13 gram-1.6 gram oral solution MIX AND DRINK UTD 08/28 completed Not Available Not Available Not Available Vitals Date Recorded Body mass index (BMI) Body height Oxygen saturation Oxygen saturation in Arterial blood by Pulse oximetry Heart rate Respiratory rate Body temperature Body weight Systolic blood pressure Diastolic blood pressure Provider Name and Address Organization Details Last Updated DateTime 2 25.2 kg/m2 182.88 cm 98 % 98 % 68 /min 16 /min 97.5 [degF] 21592.1 8 g 126 mm[Hg] 76 mm[Hg] Not Available [facility] 3 07:30:23 Date Recorded Body height Body mass index (BMI) Body weight Body temperature Heart rate Respiratory rate Oxygen saturation Oxygen saturation in Arterial blood by Pulse oximetry Pain severity - 0-10 verbal numeric rating [Score] - Reported Systolic blood pressure Diastolic blood pressure Provider Name and Address Organization Details Last Updated DateTime 3 182.88 cm 25.3 kg/m2 06273.2 8 g 97.9 [degF] 57 /min 16 /min 94 % 94 % 0 158 mm[Hg] 96 mm[Hg] Linda Juarez RN [facility] [employer] [facility] 17:32:38 Social History Question Answer Notes LastModified by Organizat ion Details LastModified Time Tobacco Smoking Status Never Smoker Linda Juarez RN [facility], [facility] [employer] [facility] 03/02/2023 17:33:26 Do You Have An Advance Directive? No Information not available 03/02/2023 What Is Your Level Of Alcohol Consumption? None Information not available 03/02/2023 Is Blood Transfusion Acceptable In An Emergency? Yes Information not available 03/02/2023 What Is Your Level Of Caffeine Consumption? Occasional Tea Information not available 03/02/2023 What Is Your Code Status? Full Code Information not available 03/02/2023 In The 14 Days Before Symptom Onset, Have You Had Close Contact With A Laboratory-confir med COVID-19 While That Case Was Ill? No Information not available 03/02/2023 In The 14 Days Before Symptom Onset, Have You Had Close Contact With A Person Who Is Under Investigation For COVID-19 While That Person Was Ill? No Information not available 03/02/2023 Are You Currently Employed? Yes Information not available 03/02/2023 What Type Of Diet Are You Following? 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 5 Information not available 03/02/2023 On Those Days That You Engage In Moderate To Strenuous Exercise, How Many Minutes, On Average, Do You Exercise? 60 Information not available 03/02/2023 Have There Been Any Changes To Your Family Or Social Situation? No Information no t available 03/02/2023 Do You Use Insect Repellent Routinely? No Information not available 03/02/2023 Where Do You Live? [facility] Information not available 03/02/2023 Do You Have A Medical Power Of Roll Over Press Operator? No Information not available 03/02/2023 Do You Have Any Pets? Yes Information not available 03/02/2023 What Is Your Relationship Status? Single Information not available 03/02/2023 Do You Use Your Seat Belt Or Car Seat Routinely? Yes Information not available 03/02/2023 Do You Have Smoke And Carbon Monoxide Detectors In Your Home? Yes Information not available 03/02/2023 Are There Any Smokers In Your House? No Information not available 03/02/2023 Do You Participate In Social Media? No Information not available 03/02/2023 What Types Of Sporting Activities Do You Participate In? Running, Lifting Information not available 03/02/2023 Do You Feel Stressed (tense, Restless, Nervous, Or Anxious, Or Unable To Sleep At Night)? [id number] Information not available 03/02/2023 Do You Use Sunscreen Routinely? No Information not available 03/02/2023 Have You Recently Traveled Abroad? No Information not available 03/02/2023 Sex: Unknown Functional Status Question Answer Note LastModified by Organization D etails LastModified Time What is your exercise level? Heavy Information not available 03/02/2023 Mental Status None recorded. Family History Nothing Reported. Medical History Condition Response HIGH CHOLESTEROL / HYPERLIPIDEMIA Y HYPERTHYROIDISM Y HYPERTENSION Y Immunizations Vaccine Type Date Status Note Provider Nam e and Address Organization Details Recorded Time Tdap 03/23/2011 completed Not Available [facility] 11/25/2022 07:39:25 Tdap 08/28/2022 completed Not Available [facility] 11/25/2022 07:39:25 Past Encounters Encounter ID Performer Location Encounter Start Date Encounter Closed Date Diagnosis/Indication Diagnosis SNOMED-CT Code Diagnosis ICD10 Code Diagnosis Note [id number] Hussein Hollins MD [facility]_[address] [address] 08/28/2022 00:00:00 08/28/2022 12:03:56 [id number] Linda Gupta NP [facility] [place] [address] [place] [address] 03/02/2023 17:20:40 03/02/2023 18:10:31 Essential hypertension 84642213 I10 <2 gm sodium diet.Losar elias 100 mg po daily.Amlo dipine 10 mg po daily.Take medication s routinely- bp 160/92 today. BP goal 130/80. If cp, sob, blurred vision, go to er for eval. Hyperlipidemia 37243981 E78.5 Atorvastat in 40 mg po nightly.Lo w fat diet. Hypothyroidism 63484381 E03.9 Levothyrox ine 150 mcg po daily. Adult heal th examination 887410218 Z00.00 Encouraged well balanced meals Screening for malignant neoplasm of prostate 455731450 Z12.5 Seeing urology. Screening for malignant neoplasm of colon 000491554 Z12.11 Had colonoscop y in 2020. Was good. FU in 10 years. Fatigue 99213396 R53.83 low libido and fatigue. Urology seen, but recommende d testostero ne levels. Health Concerns Section Related Observation LastModified by Organization Detai ls LastModified Time None Recorded Concern Status LastModified by Organization Details LastModified Time None Recorded Advance Directives Directive N: Payers Encounter Date Sequence Insurance Name Policy Number Policy Lacy Covered Member ID Lacy Member ID Guarantor Name 03/02/2023 1 [facility] [id number] Eulalio Chavarria [id number] Eulalio Chavarria Notes Date Note Type Note Provider Name and Address Organization Details Recorded Time 03/02/2023 text/html Here for nora s visit. States he hasn't been consistent with meds. Has missed several doses lately. Aware he needs to get better. HTN- Took both losartan and amlodipine. Hasn't been checking home bp.Thyroid- Levothyroxine po daily. Missed few doses in a row.lipid- Trying low fat diet. Seeing dr. Mccarthy with [facility]. Linda Gupta NP [address] [facility] [place], [facility] [address], [place], [address], [facility] [employer] [facility] 03/02/2023 18:08:07
--- OUTSIDE RECORDS SUMMARY | 2025-01-31 22:43 | XMS_ITS | Clinical Summary ---
Author Organization [facility] Address [address] [place] [address] Care Team Providers Care Integrated Circuit Design Engineer Name Role Phone Paty Tellez MD Primary Care Provider [phone] [facility],non-owned Affiliates and Associated Physician Practices is amultiple site organization consisting of ambulatory clinics and hospital sitesin [place], [place], [place] and [place]. This disclosure is being madepursuant to the Care Everywhere program and may not contain all information available regarding this patient. Last updated 18.[facility] Allergies Active Allergy Reactions Criticality Noted Date Comments Penicillins 08/31/2014 Medications * Be aware that medications may not be up to date on this document. Alwaysverify current medications with the patient. 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 Gender Identity Not on file Sexual Orientation Not on file Occupation Industry Job Start Date Job End Date [employer] M[employer] Not on file Not on file Not on file Last Filed Vital Signs Vital Sign Reading Time Taken Comments Blood Pressure - - Pulse - - Temperature - - Respiratory Rate - - Oxygen Saturation - - Inhaled Oxygen Concentration - - Weight 81.6 kg (180 lb) 08/31/2014 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 Height 182.9 cm (6') 08/31/2014 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 Body Mass Index 24.41 08/31/2014 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 Plan of Treatment Health Maintenance Due Date Last Done Comments COLOGUARD (AGES 45-75) - COL ON CA SCREENING 1969 COLON MONITORING 1969 COLONOSCOPY - COLON CA SCREENING 1969 CT COLONOGRAPHY - COLON CA SCREENING 1969 Colorectal Cancer Screening 1969 FIT - COLON CA SCREENING 1969 FLEX SIG - COLON CA SCREENING 1969 LIPID TESTING 1969 HIV SCREENING 1984 HEPATITIS C SCREENING 12/08/1987 DTAP/TDAP/TD VACCINES (1 - Tdap) 1988 HEPATITIS B VACCINE (1 of 3 - 19+ 3-dose series) 1988 PNEUMOCOCCAL VACCINE 50+ (1 of 1 - PCV) 12/13/2019 ZOSTER VACCINE (1 of 2) 12/13/2019 COVID-19 VACCINE (1 - 2023-2 5 season) 2024 DEPRESSION SCREENING 09/27/2024 INFLUENZA VACCINE (Season Ended) 2025 HIB VACCINE Aged Out No longer eligi ble based on patient's age to complete this topic HPV VACCINE Aged Out No longer eligi ble based on patient's age to complete this topic MENINGOCOCCAL (Group B) VACC INE SHARED DECISION-MAKING Aged Out No longer eligibl e based on patient's age to complete this topic MENINGOCOCCAL GROUPS A/C/Y/W VACCINE Aged Out No longer eligible b ased on patient's age to complete this topic Insurance [facility] [place] [address] [place] [address] Care Teams Integrated Circuit Design Engineer Relationship Specialty Start Date End Date Paty Tellez MD [address] [place] [phone] PCP - General Family Medicine 08/31/14
--- OUTSIDE RECORDS SUMMARY | 2025-01-31 22:43 | XMS_ITS | Clinical Summary ---
Author Organization [facility] [address] Address [address] [place] [address] Care Team Providers Care Trolley Coach Driver Name Role Phone Linda Gupta REGISTERED DIET TECHNICIAN Primary Care Provider + Allergies Active Allergy [...] BREAST Hypothyroidism 02/10/2014 Overview (01/01/2017): HYPOTHYROIDISM NOS Medical History Medical History Date Comments Hypertrophy of breast Hypothyroidism Hypertension Family History Medical History Relation Name Comments Heart attack Father Heart disease Father Cancer Sister Relation Name Status Comments Father Sister Social History Tobacco Use Types Packs/Day Years Used Date Smoking Tobacco: Never Smokeless Tobacco: Never Personal Safety Answer Date Recorded Getting School Help Needed Not on file 10/12 Sex and Gender Information Value Date Recorded Sex Assigned at Not on file 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 Gender Identity Not on file Sexual Orientation Not on file Obstetrics History Last Filed Vital Signs Vital Sign Reading [...] 05/20/2022 9:46 AM CDT Plan of Treatment Health Maintenance Due Date Last Done Comments Colon Cancer Screening-Colonoscopy 1969 Depression Screening 1969 Hepatitis C Screening 1969 Prostate Cancer Screening-PSA 1969 Hepatitis B Screening 12/13/1987 Regular Well Visit/Exam 18-64 12/13/1987 Zoster Vaccine (1 of 2) 12/13/2019 Influenza Vaccine (Season Ended) 2025 DTaP/Tdap/Td Vaccine (3 - Td or Tdap) 08/28/2032 08/28/2022, 03/23/2011 Pneumococcal vaccine <65 Aged Out No longer eligible based on patient's age to complete this topic Insurance [facility] H[facility]PP[facility] Address: [address] [address] [place] [address] Care Teams Trolley Coach Driver Relationship Specialty Start Date End Date Linda Gupta NP PCP - General Nurse Practitioner 03/17/18
[2025-01-31 22:46] VITALS: BP 159/92; PULSE 57; RESP 18; TEMP 36.6; O2SAT 98
[2025-02-01] VITALS (13 sets, daily range): BP systolic 92–142; BP diastolic 53–85; PULSE 45–68; RESP 10–18; TEMP 36.1–36.8; O2SAT 92–100; BMI 26.6
[2025-02-01 00:22] LABS: Basophils Percent Auto 0.4 % (0.2-1.2); Eosinophils Absolute Auto 0.1 K/mm3 (0-0.3); Hematocrit 44.8 % (42.0-52.0); Hemoglobin 14.5 g/dL (14.0-18.0); Immature Granulocyte Absolute 0.06 K/mm3 (0.00-0.031); Immature Granulocyte Percent A 0.7 % (0-0.5); Lymphocytes Absolute Auto 1.76 K/mm3 (0.9-3.2); Mean Corpuscular HGB Conc 32.4 g/dl (32-36); Mean Corpuscular Hemoglobin 30.7 pg (26-34); Mean Corpuscular Volume 94.7 fl (80-100); Mean Platelet Volume 9.9 fl (7.4-10.4); Monocytes Absolute Auto 0.6 K/mm3 (0.1-0.6); Monocytes Percent Auto 7.5 % (2.6-8.5); Neutrophils Absolute Auto 5.8 K/mm3 (1.3-6.7); Neutrophils Percent Auto 69.4 % (45.5-73.1); Platelet Count Result 179 k/mm3 (150-375); Red Blood Count 4.73 M/mm3 (4.6-6.20); Red Cell Distribution Width 12.9 % (11.5-14.5); White Blood Count 8.4 K/mm3 (4.5-10.0)
--- NOTE | 2025-02-01 00:24 | ED.MALEGU ---
HPI - Male Genitourinary General Chief complaint: Urogenital-Male <Alicia Almanza APRN - Last Filed: 02/01/25 02:57> Stated complaint: R Flank pain-Hx kidney stones <Alicia Almanza APRN - Last Filed: 02/01/25 02:57> Time Seen by Provider: 01/31/25 23:39 <Alicia Almanza APRN - Last Filed: 02/01/25 02:57> History of Present Illness HPI Narrative: Patient is a 54-year-old male who presents to the ER with complaints right flank and abdominal pain. He reports his pain started abruptly around 930 p.m. this evening. patient reports he has a history of kidney stones and saw his urologist last week who told patient he has multiple kidney stones in his right kidney. He reports he was not experiencing any pain until this evening. Patient denies any urinary retention, hematuria, or recent fevers. He endorses a history of high blood pressure for which he takes medication. <Alicia Almanza APRN - Last Filed: 02/01/25 02:57> Related Data Home medications: Home Medications ?Medication ?Instructions ?Recorded ?Confirmed ?Last Taken ?Type amlodipine 5 mg tablet 5 mg PO QAM 11/14/24 11/14/24 Unknown History <Alicia Almanza APRN - Last Filed: 02/01/25 02:57> Allergies/Adverse reactions: Allergies Allergy/AdvReac Type Severity Reaction Status Date / Time Penicillins Allergy Unknown Swelling Verified 01/31/25 22:42 <Alicia Almanza APRN - Last Filed: 02/01/25 02:57> Review of Systems Review of Systems: All systems reviewed & are unremarkable except as noted in HPI and below <Alicia Almanza APRN - Last Filed: 02/01/25 02:57> [facility] Past Medical History Medical History: Medical History Nephrolithiasis Hypothyroidism Hypertension Dyslipidemia <Alicia Almanza APRN - Last Filed: 02/01/25 02:57> Surgical History Surgical History: Surgical History Hx of tonsillectomy History of arthroscopy of left shoulder S/P left knee arthroscopy <Alicia Almanza APRN - Last Filed: 02/01/25 02:57> Family History Family History: Family History Father Hypertension Heart disease <Alicia Almanza APRN - Last Filed: 02/01/25 02:57> Social History Social History: Social History Social History: 11/14/24 very confident with medical forms Smoking status: Never smoker Alcohol intake: never Substance use: never Do You Feel Safe in your Home?: Yes Lack of Transportation: No Lack of Food: Never True Current Housing: I Have Housing Concerned About Future Housing: No Difficulty Paying Gas/Electric Bills: No Difficulty Paying for Meds: No Currently Unemployed: No Education: Bachelor's Degree Difficulty w/ Childcare or Family Care: No Living arrangements: with family Occupation/Education: occupation Additional occupation/education comments: [place] at [employer] Gender identity (if verbalized by the patient): Male Sexual Orientation (if Verbalized by the Patient): Straight or Heterosexual Spiritual care concerns: No Agree to blood products: Yes <Alicia Almanza APRN - Last Filed: 02/01/25 02:57> Exam Narrative: GENERAL: Ill appearing, well-nourished, non-toxic, in acute distress due to pain. HEAD: Normocephalic, atraumatic. NECK: Supple. No adenopathy, no masses. RESPIRATORY: Airway patent, respirations nonlabored. Clear to auscultation bilaterally, no rales, rhonchi, wheezing. CARDIOVASCULAR: Regular rate and rhythm without murmurs, rubs, or gallops. Peripheral pulses 2+ and equal bilaterally. +CVA tenderness R flank ABDOMINAL: Soft, nontender, nondistended, no hepatosplenomegaly. Normoactive BS. MUSCULOSKELETAL: Moves all extremities. Strength/ROM intact without gross deformities. SKIN: Warm, dry, normal color. No rashes. NEURO: A&O X3. Speech clear. Cranial nerves II-XII intact. No ataxic movements. PSYCHIATRIC: Appropriate mood and affect. Normal interaction. <Alicia Almanza APRN - Last Filed: 02/01/25 02:57> Course Reevaluation(s) Reevaluation #1: Patient presenting with right-sided flank pain, had been diagnosed recently with kidney stone. He is persistently requesting more pain medication despite doses of Toradol, Dilaudid, Zofran, fluids, Flomax here. CT abdomen/pelvis obtained on my independent interpretation shows 5 mm stone to the right mid ureter with some hydronephrosis and hydroureter. Case discussed with urologist property utilization manager who will try to arrange for OR tomorrow. Hospitalist accepts. <Em Merritt MD - Last Filed: 02/01/25 03:09> Vital Signs Vital signs: Vital Signs Temperature 97.9 F 01/31/25 22:46 Pulse Rate 57 L 01/31/25 22:46 Respiratory Rate 18 01/31/25 22:46 Blood Pressure 159/92 H 01/31/25 22:46 Pulse Oximetry 98 01/31/25 22:46 Oxygen Delivery Room Air 01/31/25 22:46 Temperature 97.9 F 01/31/25 22:46 Pulse Rate 52 L 02/01/25 02:17 Respiratory Rate 13 02/01/25 02:17 Blood Pressure 122/71 02/01/25 02:17 Pulse Oximetry 93 02/01/25 02:18 Oxygen Delivery Nasal Cannula 02/01/25 02:18 Oxygen Flow Rate 2 02/01/25 02:18 <Alicia Almanza APRN - Last Filed: 02/01/25 02:57> Vital Signs Temperature 97.9 F 01/31/25 22:46 Pulse Rate 57 L 01/31/25 22:46 Respiratory Rate 18 01/31/25 22:46 Blood Pressure 159/92 H 01/31/25 22:46 Pulse Oximetry 98 01/31/25 22:46 Oxygen Delivery Room Air 01/31/25 22:46 Temperature 97.9 F 01/31/25 22:46 Pulse Rate 52 L 02/01/25 02:17 Respiratory Rate 13 02/01/25 02:17 Blood Pressure 122/71 02/01/25 02:17 Pulse Oximetry 93 02/01/25 02:18 Oxygen Delivery Nasal Cannula 02/01/25 02:18 Oxygen Flow Rate 2 02/01/25 02:18 <Em Merritt MD - Last Filed: 02/01/25 03:09> MDM - Male Genitourinary [facility] Narrative Medical decision making narrative: Patient is a 54-year-old male who presents to the ER with complaints right flank and abdominal pain. He reports his pain started abruptly around 930 p.m. this evening. patient reports he has a history of kidney stones and saw his urologist last week who told patient he has multiple kidney stones in his right kidney. He reports he was not experiencing any pain until this evening. Patient denies any urinary retention, hematuria, or recent fevers. He endorses a history of high blood pressure for which he takes medication. Labs Ordered: CBC, CMP, UA Imaging Ordered: CT abdomen pelvis scan Medications Ordered: 1 L normal saline IV bolus, Toradol 15 mg IV, Dilaudid 0.5 mg IV Results: CT scan indicates Diagnosis: 4-5mm R kidney stone with mild hydronephrosis and hydroureteronephrosis Consults: 0245- Spoke with urology who agreed to consult pt. Patient Education/Shared MDM: 0145- Pt reports he initially felt immense pain relief following pain medication administration, but now it feels as though I haven't even had any pain medication. Pt given a second dose of Dilaudid 0.5mg IV. 0300- Results of lab work and imaging shared with patient. He endorses improvement of symptoms following medication administration. He verbalizes understanding and is in agreement for hospital admission. Care signed out to Dr. Merritt. <Alicia Almanza APRN - Last Filed: 02/01/25 02:57> Differential Diagnosis Differential diagnosis: Likely urinary tract infection, acute retention of urine and other ( kidney stone, hydronephrosis) <Alicia Almanza APRN - Last Filed: 02/01/25 02:57> Lab Data Attestation: I reviewed the patient's lab results. <Alicia Almanza APRN - Last Filed: 02/01/25 02:57> Result diagrams: 02/01/25 00:15 02/01/25 00:15 <Alicia Almanza APRN - Last Filed: 02/01/25 02:57> Labs: Lab Results 02/01/25 02/01/25 Range/Units 00:15 00:31 WBC 8.4 (4.5-10.0) K/mm3 RBC 4.73 (4.6-6.20) M/mm3 Hgb 14.5 (14.0-18.0) g/dL Hct 44.8 (42.0-52.0) % MCV 94.7 (80-100) fl MCH 30.7 (26-34) pg MCHC 32.4 (32-36) g/dl RDW 12.9 (11.5-14.5) % Plt Count 179 (150-375) k/mm3 MPV 9.9 (7.4-10.4) fl Immature Gran % (Auto) 0.7 H (0-0.5) % Neut % (Auto) 69.4 (45.5-73.1) % Lymph % (Auto) 21.0 (18.3-44.2) % [place] % (Auto) 7.5 (2.6-8.5) % Eos % (Auto) 1.0 (0-4.4) % Baso % (Auto) 0.4 (0.2-1.2) % Lymph # (Auto) 1.76 (0.9-3.2) K/mm3 [place] # (Auto) 0.6 (0.1-0.6) K/mm3 Eos # (Auto) 0.1 (0-0.3) K/mm3 Baso # (Auto) 0.0 (0.0-0.1) K/mm3 Abs Immat Gran (auto) 0.06 H (0.00-0.031) K/mm3 Absolute Neuts (auto) 5.8 (1.3-6.7) K/mm3 Absolute Nucleated RBC 0.000 (0.0-0.012) K/mm3 Nucleated RBC % 0.0 (0.0-0.2) % Sodium 140 (137-145) mmol/L Potassium 3.5 (3.4-5.0) mmol/L Chloride 102 (98-107) mmol/L Carbon Dioxide 28 (22-30) mmol/L Anion Gap 10 (4-12) mmol/L BUN 24 H D (9-20) mg/dL Creatinine 0.94 (0.7-1.3) mg/dL Estim Creat Clear Calc 86 ml/min Estimated GFR > 60 (59 - ) Glucose 105 (65-110) mg/dL Calcium 9.4 (8.4-10.2) mg/dL Total Bilirubin 0.8 (0.2-1.3) mg/dL AST 30 (17-59) U/L ALT 28 (6-50) U/L Alkaline Phosphatase 51 (38-126) U/L Total Protein 7.0 (6.3-8.2) g/dL Albumin 4.5 (3.5-5.1) g/dL Urine Color Yellow (Yellow) Urine Appearance Cloudy H (Clear) Urine pH 7.0 (5.0-9.0) Ur Specific Ep[place] 1.012 (1.001-1.035) Urine Protein Negative (Negative) mg/dL Urine Glucose (UA) Negative (Negative) mg/dL Urine Ketones Negative (Negative) mg/dL Ur Blood (Man) 3+ H (Negative) Urine Nitrate Negative (Negative) Urine Bilirubin Negative (Negative) Urine Urobilinogen 0.2 (<2.0) mg/dL Leukocyte Esterase Rfl Negative (Negative) JASE/UL Urine RBC 51-100 H (0-2) /hpf Urine WBC 0-5 (0-3) /hpf Ur Squamous Epith Cells None seen (Few) /hpf Urine Bacteria None seen /hpf Urine Casts 0-2 <Alicia Almanza, DRUPAL PROGRAMMER - Last Filed: 02/01/25 02:57> Lab Results 02/01/25 02/01/25 Range/Units 00:15 00:31 WBC 8.4 (4.5-10.0) K/mm3 RBC 4.73 (4.6-6.20) M/mm3 Hgb 14.5 (14.0-18.0) g/dL Hct 44.8 (42.0-52.0) % MCV 94.7 (80-100) fl MCH 30.7 (26-34) pg MCHC 32.4 (32-36) g/dl RDW 12.9 (11.5-14.5) % Plt Count 179 (150-375) k/mm3 MPV 9.9 (7.4-10.4) fl Immature Gran % (Auto) 0.7 H (0-0.5) % Neut % (Auto) 69.4 (45.5-73.1) % Lymph % (Auto) 21.0 (18.3-44.2) % [place] % (Auto) 7.5 (2.6-8.5) % Eos % (Auto) 1.0 (0-4.4) % Baso % (Auto) 0.4 (0.2-1.2) % Lymph # (Auto) 1.76 (0.9-3.2) K/mm3 [place] # (Auto) 0.6 (0.1-0.6) K/mm3 Eos # (Auto) 0.1 (0-0.3) K/mm3 Baso # (Auto) 0.0 (0.0-0.1) K/mm3 Abs Immat Gran (auto) 0.06 H (0.00-0.031) K/mm3 Absolute Neuts (auto) 5.8 (1.3-6.7) K/mm3 Absolute Nucleated RBC 0.000 (0.0-0.012) K/mm3 Nucleated RBC % 0.0 (0.0-0.2) % Sodium 140 (137-145) mmol/L Potassium 3.5 (3.4-5.0) mmol/L Chloride 102 (98-107) mmol/L Carbon Dioxide 28 (22-30) mmol/L Anion Gap 10 (4-12) mmol/L BUN 24 H D (9-20) mg/dL Creatinine 0.94 (0.7-1.3) mg/dL Estim Creat Clear Calc 86 ml/min Estimated GFR > 60 (59 - ) Glucose 105 (65-110) mg/dL Calcium 9.4 (8.4-10.2) mg/dL Total Bilirubin 0.8 (0.2-1.3) mg/dL AST 30 (17-59) U/L ALT 28 (6-50) U/L Alkaline Phosphatase 51 (38-126) U/L Total Protein 7.0 (6.3-8.2) g/dL Albumin 4.5 (3.5-5.1) g/dL Urine Color Yellow (Yellow) Urine Appearance Cloudy H (Clear) Urine pH 7.0 (5.0-9.0) Ur Specific Epes 1.012 (1.001-1.035) Urine Protein Negative (Negative) mg/dL Urine Glucose (UA) Negative (Negative) mg/dL Urine Ketones Negative (Negative) mg/dL Ur Blood (Man) 3+ H (Negative) Urine Nitrate Negative (Negative) Urine Bilirubin Negative (Negative) Urine Urobilinogen 0.2 (<2.0) mg/dL Leukocyte Esterase Rfl Negative (Negative) JASE/UL Urine RBC 51-100 H (0-2) /hpf Urine WBC 0-5 (0-3) /hpf Ur Squamous Epith Cells None seen (Few) /hpf Urine Bacteria None seen /hpf Urine Casts 0-2 <Em Merritt MD - Last Filed: 02/01/25 03:09> Discharge Plan Discharge Clinical Impression: Kidney stone <Alicia Almanza APRN - Last Filed: 02/01/25 02:57> Patient Disposition: Still a Patient <Alicia Almanza APRN - Last Filed: 02/01/25 02:57> Condition: Stable <Alicia Almanza APRN - Last Filed: 02/01/25 02:57> Patient Language: Azeri <Alicia Almanza APRN - Last Filed: 02/01/25 02:57> Prescriptions: No Action losartan 100 mg tablet 100 mg PO QAM Qty: 90 3RF amlodipine 5 mg tablet 5 mg PO QAM azithromycin 250 mg tablet See Rx Instructions PO .COMPLEX Qty: 6 0RF Rx Instructions: For 250 mg dose pack: take 500 mg today (day 1), then 250 mg for 4 days (days 2-5) PO atorvastatin 20 mg tablet 20 mg PO QHS Qty: 90 3RF levothyroxine 150 mcg tablet 150 mcg PO DAILY Qty: 90 0RF <Alicia Almanza APRN - Last Filed: 02/01/25 02:57> Follow-up/Referrals: Linda Gupta APRN [Primary Care Provider] - <Alicia Almanza APRN - Last Filed: 02/01/25 02:57>
--- OUTSIDE RECORDS SUMMARY | 2025-02-01 00:33 | XMS_ITS | Clinical Summary ---
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
--- OUTSIDE RECORDS SUMMARY | 2025-02-01 00:33 | XMS_ITS | Clinical Summary ---
Author Organization [facility] Address [address] [place] [address] Care Team Providers Care Display Decorator Name Role Phone Paty Tellez MD Primary Care Provider [phone] Source Comments [facility],non-owned Affiliates and Associated Physician Practices is amultiple site organization consisting of ambulatory clinics and hospital sitesin [place], [place], [place] and [place]. This disclosure is being madepursuant to the Care Everywhere program and may not contain all information available regarding this patient. 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 Not on file Not on file Last Filed Vital Signs Vital Sign Reading Time Taken Comments Blood Pressure - - Pulse - - Temperature - - Respiratory Rate - - Oxygen Saturation - - Inhaled Oxygen Concentration - - Weight 81.6 kg (180 lb) 08/31/2014 11:44 AM VENDING MACHINE COLLECTOR Height 182.9 cm (6') 08/31/2014 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
--- OUTSIDE RECORDS SUMMARY | 2025-02-01 00:33 | XMS_ITS | Referral Summary ---
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
[2025-02-01] MEDS: ONDANSETRON INJ 4 MG/2 ML VIAL (00:36)
[2025-02-01] MEDS: KETOROLAC 15 MG/ML VIAL (*BKC) IV PUSH (00:36)
[2025-02-01] MEDS: HYDROmorphone HCL INJ (*CRX) 2 MG/ML VIAL 0.5 MG IV PUSH ×2 (00:36→02:05)
[2025-02-01] MEDS: SODIUM CHLORIDE 0.9% IV 1,000 ML 999 ML IV CONT (00:37)
[2025-02-01 00:46] LABS: Alanine Aminotransferase 28 U/L (6-50); Albumin Level 4.5 g/dL (3.5-5.1); Alkaline Phosphatase 51 U/L (38-126); Anion Gap 10 mmol/L (4-12); Aspartate Amino Transferase 30 U/L (17-59); Bilirubin,Total 0.8 mg/dL (0.2-1.3); Blood Urea Nitrogen 24 mg/dL (9-20); Calcium 9.4 mg/dL (8.4-10.2); Carbon Dioxide 28 mmol/L (22-30); Chloride 102 mmol/L (98-107); Estimated CRCL calculation 86 ml/min; Estimated Glomerular Filt Rate > 60; Glucose 105 mg/dL (65-110); Potassium 3.5 mmol/L (3.4-5.0); Sodium 140 mmol/L (137-145)
[2025-02-01 00:46] LABS: Add Urine Microscopic? YES; Appearance Urine Cloudy (Clear); Bacteria Urine None Seen /hpf; Bilirubin Urine Negative (Negative); Blood Urine 3+ (Negative); Color Urine Yellow (Yellow); Glucose Urine UA Negative (Negative); Ketones Urine Negative (Negative); Leukocyte Esterase Ur Negative LEU/UL (Negative); Nitrate Urine Negative (Negative); Non Pathogenic Casts 0-2; Protein Urine Negative (Negative); RBC Urine 51-100 /hpf (0-2); Specific Grav Ur 1.012 (1.001-1.035); Squamous Epithelial Cell Urine None Seen /hpf (Few); Urobilinogen Urine 0.2 mg/dL (<2.0); WBC Urine 0-5 /hpf (0-3)
[2025-02-01] MEDS: TAMSULOSIN HCL 0.4 MG CAPSULE PO (02:06)
--- NOTE | 2025-02-01 04:45 | PC.NURSE ---
This RN just notified of pt bed assignment. Report called at [phone].
--- NOTE | 2025-02-01 05:16 | ADMGEN ---
This patient, Eulalio Chavarria, was admitted to Medical Room 241-01. Patient/family oriented to hospital policies and general routines including ID bracelet, bed and alarms, visiting hours, pain management, procedures, bathroom and other care routines, personal items, smoking policy, room service/diet, and visiting hours. Information on how to activate the Rapid Response Team has been discussed. Patient/Family are encouraged to report perceived risks to care and to ask questions if they do not understand what they are told or what they should do.
--- NOTE | 2025-02-01 06:23 | WPDURCON ---
Assessment and Plan Assessment and plan (1) Bilateral renal stones: Code(s): N20.0 - Calculus of kidney Status: Acute (2) Right ureteral stone: Code(s): N20.1 - Calculus of ureter Status: Acute Assessment and Plan: Cystoscopy, right ureteroscopy with stone extraction, possible laser lithotripsy, retrograde pyelography and stent placement. Patient is aware that management of his bilateral nonobstructing kidney stones will be undertaken on a separate occasion Urology Consult Note HPI Date Seen: 02/01/25 Requesting Physician: Ethel Waller DO Primary Care Provider: Linda Gupta APRN Consult Narrative Narrative: Eulalio Chavarria is a 54 year old male has a history of recurrent urolithiasis. He recently saw Dr. Yariel Mccarthy just 3-4 weeks ago were KUB showed stable bilateral 9-10 mm nonobstructing renal pelvic stones. Unfortunately, last night around 9:30 p.m. he developed acute right flank pain with nausea. He denied fever chills or gross hematuria. Imaging in the ER demonstrates a 5 mm obstructing right proximal ureteral stone in addition to the larger nonobstructing renal pelvic stones bilaterally. He had intractable pain prompting admission after discussion of options including medical expulsive therapy, waiting for ESWL and ureteroscopy with extraction he has elected for the latter. He is aware the risk including, but not limited to, need for stent placement with stent irritation, need for additional procedures to treat his nonobstructing kidney stones, ureteral injury or ureteral stricture and hematuria. Review of Systems Review of Systems: All systems reviewed & are unremarkable except as noted in HPI and below [facility] Past Medical History Medical History Nephrolithiasis Hypothyroidism Hypertension Dyslipidemia Surgical History Surgical History Hx of tonsillectomy History of arthroscopy of left shoulder S/P left knee arthroscopy Family History Family History Father Hypertension Heart disease Social History Social History Social History: 11/14/24 very confident with medical forms Smoking status: Never smoker Alcohol intake: never Substance use: never Substance use type: does not use Do You Feel Safe in your Home?: Yes Lack of Transportation: No Lack of Food: Never True Current Housing: I Have Housing Concerned About Future Housing: No Difficulty Paying Gas/Electric Bills: No Difficulty Paying for Meds: No Currently Unemployed: No Education: Bachelor's Degree Difficulty w/ Childcare or Family Care: No Living arrangements: with family Occupation/Education: occupation Additional occupation/education comments: [place] at [employer] Gender identity (if verbalized by the patient): Male Sexual Orientation (if Verbalized by the Patient): Straight or Heterosexual Spiritual care concerns: No Agree to blood products: Yes Meds Home Medications and Allergies Home Medications ?Medication ?Instructions ?Recorded ?Confirmed ?Type atorvastatin 20 mg tablet 20 mg PO QHS #90 tabs 03/03/24 02/01/25 Rx levothyroxine 150 mcg tablet 150 mcg PO DAILY #90 tabs 08/04/24 02/01/25 Rx losartan 100 mg tablet 100 mg PO QAM #90 tabs 11/14/24 02/01/25 Rx amlodipine 10 mg tablet 10 mg PO DAILY 02/01/25 02/01/25 History Allergies Allergy/AdvReac Type Severity Reaction Status Date / Time Penicillins Allergy Unknown Swelling Verified 01/31/25 22:42 Vital Signs Vital Signs - 24 hr 01/31/25 22:46 02/01/25 02:17 02/01/25 02:18 Temperature 97.9 F Pulse Rate 57 L 52 L Respiratory Rate 18 13 Blood Pressure 159/92 H 122/71 Pulse Oximetry 98 92 93 Oxygen Delivery Room Air Nasal Cannula Oxygen Flow Rate 2 02/01/25 04:19 02/01/25 04:51 02/01/25 05:00 Temperature 98.3 F Pulse Rate 50 L 52 L 45 L Respiratory Rate 13 14 18 Blood Pressure 115/76 112/71 120/68 Pulse Oximetry 97 97 96 Oxygen Delivery Oxygen Flow Rate 02/01/25 05:50 Temperature Pulse Rate Respiratory Rate Blood Pressure Pulse Oximetry Oxygen Delivery Room Air Oxygen Flow Rate Exam Const: General: no acute distress Resp: Effort & Inspection: normal respiratory effort GI: Inspection: non-distended GI Palp: No abdominal tenderness and No Guarding due to palpation present (GI) Auscultation: normal bowel sounds Results Labs 02/01/25 00:15 02/01/25 00:15 Labs: Short CBC 02/01/25 Range/Units 00:15 WBC 8.4 (4.5-10.0) K/mm3 Hgb 14.5 (14.0-18.0) g/dL Hct 44.8 (42.0-52.0) % Plt Count 179 (150-375) k/mm3 BMP 02/01/25 00:15 Sodium 140 Potassium 3.5 Chloride 102 Carbon Dioxide 28 BUN 24 H D Creatinine 0.94 Glucose 105 Calcium 9.4 Liver Function 02/01/25 Range/Units 00:15 Total Bilirubin 0.8 (0.2-1.3) mg/dL AST 30 (17-59) U/L ALT 28 (6-50) U/L Alkaline Phosphatase 51 (38-126) U/L Albumin 4.5 (3.5-5.1) g/dL Urine 02/01/25 Range/Units 00:31 Urine Color Yellow (Yellow) Urine Appearance Cloudy H (Clear) Urine pH 7.0 (5.0-9.0) Ur Specific [place] 1.012 (1.001-1.035) Urine Protein Negative (Negative) mg/dL Urine Glucose (UA) Negative (Negative) mg/dL
--- NOTE | 2025-02-01 06:27 | WPDHPUPDATE1 ---
History and Physical Update Update Date/Time: 02/01/25 06:27 History and Physical has been reviewed, including an updated exam of the patient. There are NO changes in the patient's condition. Risks, benefits, and alternatives have been discussed and questions answered. Patient agrees to proceed with procedure.
--- NOTE | 2025-02-01 07:40 | PM.IMHP ---
H&P: HPI History of Present Illness Date/Time: 02/01/25 07:40 Chief Complaint: rt flank pain Narrative: 54-year-old male with PMH/of nephrolithiasis, hypothyroidism, HTN, dyslipidemia admitted with complaints right flank and abdominal pain. He reports pain around 930 p.m last evening. He saw his urologist, Dr. Yariel Mccarthy just 3-4 weeks ago were KUB showed stable bilateral 9-10 mm nonobstructing renal pelvic stones. Urology was consulted in ED, pt was seen per DR Stevenson- Cystoscopy, right ureteroscopy with stone extraction, possible laser lithotripsy, retrograde pyelography and stent placement today, 02/01/25. Pt is comfortable in bed, pain is controlled. no nausea. NOn smoker. full code. Review of Systems Review of Systems: All systems reviewed & are unremarkable except as noted in HPI and below (h/p) PMFSH Past Medical History Medical History Nephrolithiasis Hypothyroidism Hypertension Dyslipidemia Surgical History Surgical History Hx of tonsillectomy History of arthroscopy of left shoulder S/P left knee arthroscopy Family History Family History Father Hypertension Heart disease Social History Social History Social History: 11/14/24 very confident with medical forms Smoking status: Never smoker Alcohol intake: never Substance use: never Substance use type: does not use Do You Feel Safe in your Home?: Yes Lack of Transportation: No Lack of Food: Never True Current Housing: I Have Housing Concerned About Future Housing: No Difficulty Paying Gas/Electric Bills: No Difficulty Paying for Meds: No Currently Unemployed: No Education: Bachelor's Degree Difficulty w/ Childcare or Family Care: No Living arrangements: with family Occupation/Education: occupation Additional occupation/education comments: [employer] at [employer] Gender identity (if verbalized by the patient): Male Sexual Orientation (if Verbalized by the Patient): Straight or Heterosexual Spiritual care concerns: No Agree to blood products: Yes Meds Home Medications and Allergies Home Medications ?Medication ?Instructions ?Recorded ?Confirmed ?Type atorvastatin 20 mg tablet 20 mg PO QHS #90 tabs 03/03/24 02/01/25 Rx levothyroxine 150 mcg tablet 150 mcg PO DAILY #90 tabs 08/04/24 02/01/25 Rx losartan 100 mg tablet 100 mg PO QAM #90 tabs 11/14/24 02/01/25 Rx amlodipine 10 mg tablet 10 mg PO DAILY 02/01/25 02/01/25 History Allergies Allergy/AdvReac Type Severity Reaction Status Date / Time Penicillins Allergy Unknown Swelling Verified 01/31/25 22:42 Vital Signs Vital Signs - 24 hr 01/31/25 22:46 02/01/25 02:17 02/01/25 02:18 Temperature 97.9 F Pulse Rate 57 L 52 L Respiratory Rate 18 13 Blood Pressure 159/92 H 122/71 Pulse Oximetry 98 92 93 Oxygen Delivery Room Air Nasal Cannula Oxygen Flow Rate 2 02/01/25 04:19 02/01/25 04:51 02/01/25 05:00 Temperature 98.3 F Pulse Rate 50 L 52 L 45 L Respiratory Rate 13 14 18 Blood Pressure 115/76 112/71 120/68 Pulse Oximetry 97 97 96 Oxygen Delivery Oxygen Flow Rate 02/01/25 05:50 Temperature Pulse Rate Respiratory Rate Blood Pressure Pulse Oximetry Oxygen Delivery Room Air Oxygen Flow Rate Exam Const: General: comfortable Eyes: General: appearance normal, both eyes and all related structures Resp: Effort & Inspection: normal respiratory effort Auscultation: clear to auscultation bilaterally Cardio: Rate: regular rate Rhythm: regular rhythm GI: GI Palp: Yes Soft to palpation Auscultation: normal bowel sounds Skin: General skin exam: normal color Neuro: Speech: normal speech Motor exam (neuro): 5/5 motor strength present throughout Sensory Exam: normal sensation Extrem: General: normal to inspection Psych: Affect: normal affect H&P: Results Labs Labs: Short CBC 02/01/25 Range/Units 00:15 WBC 8.4 (4.5-10.0) K/mm3 Hgb 14.5 (14.0-18.0) g/dL Hct 44.8 (42.0-52.0) % Plt Count 179 (150-375) k/mm3 [facility] 02/01/25 00:15 Sodium 140 Potassium 3.5 Chloride 102 Carbon Dioxide 28 BUN 24 H D Creatinine 0.94 Glucose 105 Calcium 9.4 Liver Function 02/01/25 Range/Units 00:15 Total Bilirubin 0.8 (0.2-1.3) mg/dL AST 30 (17-59) U/L ALT 28 (6-50) U/L Alkaline Phosphatase 51 (38-126) U/L Albumin 4.5 (3.5-5.1) g/dL Urine 02/01/25 Range/Units 00:31 Urine Color Yellow (Yellow) Urine Appearance Cloudy H (Clear) Urine pH 7.0 (5.0-9.0) Ur Specific [place] 1.012 (1.001-1.035) Urine Protein Negative (Negative) mg/dL Urine Glucose (UA) Negative (Negative) mg/dL Assessment and Plan Assessment and plan (1) Hypertension: Qualifiers: Hypertension type: primary hypertension Qualified Code(s): I10 - Essential (primary) hypertension Code(s): I10 - Essential (primary) hypertension Status: Acute (2) Dyslipidemia: Code(s): E78.5 - Hyperlipidemia, unspecified Status: Acute (3) Hypothyroidism: Qualifiers: Hypothyroidism type: unspecified Qualified Code(s): E03.9 - Hypothyroidism, unspecified Code(s): E03.9 - Hypothyroidism, unspecified Status: Acute (4) Nephrolithiasis: Code(s): N20.0 - Calculus of kidney Status: Acute (5) Bilateral renal stones: Code(s): N20.0 - Calculus of kidney Status: Acute Plan 54 year old male has a history of recurrent urolithiasis. He saw Dr. Yariel Mccarthy just 3-4 weeks ago were KUB showed stable bilateral 9-10 mm nonobstructing renal pelvic stones. Last night around 9:30 p.m. he developed acute right flank pain with nausea. Denied fever chills or gross hematuria. Imaging in the ER demonstrates a 5 mm obstructing right proximal ureteral stone in addition to the larger nonobstructing renal pelvic stones bilaterally. Plan: Cystoscopy, right ureteroscopy with stone extraction, possible laser lithotripsy, retrograde pyelography and stent placement HTN HLD HYpothyroidism All home meds reviewed and restarted as appropriate. Pt is full code SCD for DVT prophylaxis Quality VTE Prophylaxis VTE prophylaxis: mechanical ordered
[2025-02-01] MEDS: MORPHINE SULFATE (*CRX) 4 MG/ML INJ IV PUSH (08:16)
--- NOTE | 2025-02-01 16:00 | PC.NURSE ---
pt to surgery via bed, consent previously signed and sent with chart
--- NOTE | 2025-02-01 16:34 | P.PNAN_ITS ---
Anes - Initial Pre Proc Eval Procedure: Operation Date: 02/01/25 17:00 Proposed Procedures p Cystoscopy, Right Ureteroscopy, Possible Right Stone Extraction, Possible Right Stent Placement, Possible Holmium Laser - Richard Stevenson MD Date/Time: 02/01/25 16:34 Surgeon: Ethel Waller DO Pre Op Diagnosis: R ureteral stone Patient Data Age: 54 Gender: M Height: 1.83 m Weight: 89 kg Last Vital Signs Temp 97.1 F L 02/01/25 16:06 Pulse 50 L 02/01/25 16:06 Resp 16 02/01/25 16:06 BP 136/85 02/01/25 16:06 Pulse Ox 94 02/01/25 16:06 O2 Del Method Room Air 02/01/25 16:06 O2 Flow Rate 2 02/01/25 02:18 Allergies Allergy/AdvReac Type Severity Reaction Status Date / Time Penicillins Allergy Unknown Swelling Verified 01/31/25 22:42 Home Medications ?Medication ?Instructions ?Recorded ?Confirmed ?Type atorvastatin 20 mg tablet 20 mg PO QHS #90 tabs 03/03/24 02/01/25 Rx levothyroxine 150 mcg tablet 150 mcg PO DAILY #90 tabs 08/04/24 02/01/25 Rx losartan 100 mg tablet 100 mg PO QAM #90 tabs 11/14/24 02/01/25 Rx amlodipine 10 mg tablet 10 mg PO DAILY 02/01/25 02/01/25 History Laboratory Tests 02/01/25 02/01/25 00:15 00:31 WBC 8.4 K/mm3 (4.5-10.0) RBC 4.73 M/mm3 (4.6-6.20) Hgb 14.5 g/dL (14.0-18.0) Hct 44.8 % (42.0-52.0) MCV 94.7 fl (80-100) MCH 30.7 pg (26-34) MCHC 32.4 g/dl (32-36) RDW 12.9 % (11.5-14.5) Plt Count 179 k/mm3 (150-375) MPV 9.9 fl (7.4-10.4) Immature Gran % (Auto) 0.7 H % (0-0.5) Neut % (Auto) 69.4 % (45.5-73.1) Lymph % (Auto) 21.0 % (18.3-44.2) [place] % (Auto) 7.5 % (2.6-8.5) Eos % (Auto) 1.0 % (0-4.4) Baso % (Auto) 0.4 % (0.2-1.2) Lymph # (Auto) 1.76 K/mm3 (0.9-3.2) [place] # (Auto) 0.6 K/mm3 (0.1-0.6) Eos # (Auto) 0.1 K/mm3 (0-0.3) Baso # (Auto) 0.0 K/mm3 (0.0-0.1) Abs Immat Gran (auto) 0.06 H K/mm3 (0.00-0.031) Absolute Neuts (auto) 5.8 K/mm3 (1.3-6.7) Absolute Nucleated RBC 0.000 K/mm3 (0.0-0.012) Nucleated RBC % 0.0 % (0.0-0.2) Sodium 140 mmol/L (137-145) Potassium 3.5 mmol/L (3.4-5.0) Chloride 102 mmol/L (98-107) Carbon Dioxide 28 mmol/L (22-30) Anion Gap 10 mmol/L (4-12) BUN 24 H D mg/dL (9-20) Creatinine 0.94 mg/dL (0.7-1.3) Estim Creat Clear Calc 86 ml/min Estimated GFR > 60 (59 - ) Glucose 105 mg/dL (65-110) Calcium 9.4 mg/dL (8.4-10.2) Total Bilirubin 0.8 mg/dL (0.2-1.3) AST 30 U/L (17-59) ALT 28 U/L (6-50) Alkaline Phosphatase 51 U/L (38-126) Total Protein 7.0 g/dL (6.3-8.2) Albumin 4.5 g/dL (3.5-5.1) Urine Color Yellow (Yellow) Urine Appearance Cloudy H (Clear) Urine pH 7.0 (5.0-9.0) Ur Specific [place] 1.012 (1.001-1.035) Urine Protein Negative mg/dL (Negative) Urine Glucose (UA) Negative mg/dL (Negative) Urine Ketones Negative mg/dL (Negative) Ur Blood (Man) 3+ H (Negative) Urine Nitrate Negative (Negative) Urine Bilirubin Negative (Negative) Urine Urobilinogen 0.2 mg/dL (<2.0) Leukocyte Esterase Rfl Negative JASE/UL (Negative) Urine RBC 51-100 H /hpf (0-2) Urine WBC 0-5 /hpf (0-3) Ur Squamous Epith Cells None seen /hpf (Few) Urine Bacteria None seen /hpf Urine Casts 0-2 Patient hx anesthesia problems: none Family hx anesthesia problems: none Results Review: All pre-operative results and documents have been reviewed as part of the pre- operative evaluation. [facility] Past Medical History Medical History Nephrolithiasis Hypothyroidism Hypertension Dyslipidemia Surgical History Surgical History Hx of tonsillectomy History of arthroscopy of left shoulder S/P left knee arthroscopy Family History Family History Father Hypertension Heart disease Social History Social History Social History: 11/14/24 very confident with medical forms Smoking status: Never smoker Alcohol intake: never Substance use: never Substance use type: does not use Do You Feel Safe in your Home?: Yes Lack of Transportation: No Lack of Food: Never True Current Housing: I Have Housing Concerned About Future Housing: No Difficulty Paying Gas/Electric Bills: No Difficulty Paying for Meds: No Currently Unemployed: No Education: Bachelor's Degree Difficulty w/ Childcare or Family Care: No Living arrangements: with family Occupation/Education: occupation Additional occupation/education comments: [employer] at [employer] Gender identity (if verbalized by the patient): Male Sexual Orientation (if Verbalized by the Patient): Straight or Heterosexual Spiritual care concerns: No Agree to blood products: Yes Anes - Eval Final PreProcedure Day of Procedure 02/01/25 16:34 Patient weight: normal Lungs: normal air movement Airway: Mallampati scale class II Neurological: alert and oriented Last oral intake: >/= 8 hours ASA classification: II Emergent: no Anesthetic plan: proceed Anesthesia type and monitoring: general LMA and standard monitoring Results Review: All pre-operative results and documents have been reviewed as part of the pre- operative evaluation. HTN, hyperlipidemia, hypothyroidism. Pt very physically active w workouts, no cp or sob. Informed Consent: The patient's anesthetic plan and its attendant risks and benefits were discu ssed with the patient/family/POA. Questions were solicited and answers provided to the satisfaction of the patient/family/POA.
[2025-02-01] MEDS: ceFAZolin 2 GM/D5W 50 ML 2 GM/50 ML BAG IVPB (17:13)
[2025-02-01] MEDS: LIDOCAINE 2% GEL UROJET 10 ML PKG MUCOUS MEM (17:25)
[2025-02-01] MEDS: LACTATED RINGERS 1,000 ML 30 ML IV CONT ×2 (17:58→18:13)
--- NOTE | 2025-02-01 18:14 | W.PM.PROC2 ---
Procedure Note - Detailed Date of Procedure 02/01/25 Pre-op Diagnosis R ureteral stone Post-op Diagnosis Same Procedure Performed Cystoscopy, right ureteroscopy with laser lithotripsy, stone extraction, stent placement Surgeon Richard Stevenson MD Anesthesia General Description of Procedure Patient is brought to the operative suite where she is prepped and draped in routine sterile fashion while in dorsal lithotomy position after the uneventful induction of a general LMA anesthetic. Cystoscopy was undertaken with a 19 F rigid cystoscope. There was no urethral stricture. There was negligible prostatic hyperplasia. Bladder mucosa is normal without hyperemia. He has a single orthotopic ureteral orifice. There was no intravesical foreign body or neoplasm. A 0.035 in glidewire was advanced into his right renal pelvis with a little difficulty because of the impacted right mid ureteral stone. Distal ureter was dilated with an 8 F 10 F dilator and a 11 F/13 F access sheath was placed with ease. Ureteroscopy was undertaken with a 7.5 F digital flexible ureteral scope. Stone was easily visualized and found to be markedly impacted with significant ureteral edema but without obvious ureteral stricture. Using a 200 micron Fredrick laser fiber I fractured into 4 or 5 smaller pieces, all of which were removed with a 1.9 F disposable stone basket. I placed a 4.8 F variable length stent with the proximal coil in the renal pelvis distal coil in the bladder. Scopes wires removed the patient was taken recovery room good condition. Drains Yes Pathology Yes Complications No immediate complications Condition Stable Disposition PACU
--- NOTE | 2025-02-02 09:37 | P.DS_ITS ---
DS: Admitting Diagnosis Discharge Date 02/01/25 Admitting Diagnosis kidney stone DS: Discharge Diagnosis Discharge Diagnosis (1) Hypertension: Qualifiers: Hypertension type: primary hypertension Qualified Code(s): I10 - Essential (primary) hypertension Code(s): I10 - Essential (primary) hypertension Status: Acute (2) Dyslipidemia: Code(s): E78.5 - Hyperlipidemia, unspecified Status: Acute (3) Hypothyroidism: Qualifiers: Hypothyroidism type: unspecified Qualified Code(s): E03.9 - Hypothyroidism, unspecified Code(s): E03.9 - Hypothyroidism, unspecified Status: Acute (4) Nephrolithiasis: Code(s): N20.0 - Calculus of kidney Status: Acute (5) Bilateral renal stones: Code(s): N20.0 - Calculus of kidney Status: Acute DS: Summary Hospital Course Hospital Course: 54 year old male has a history of recurrent urolithiasis. He saw Dr. Yariel Mccarthy just 3-4 weeks ago were KUB showed stable bilateral 9-10 mm nonobstructing renal pelvic stones. Last night around 9:30 p.m. he developed acute right flank pain with nausea. Denied fever chills or gross hematuria. Imaging in the ER demonst rates a 5 mm obstructing right proximal ureteral stone in addition to the larger nonobstructing renal pelvic stones bilaterally. Cystoscopy, right ureteroscopy with stone extraction, possible laser lithotripsy, retrograde pyelography and stent placement on 02/01. Of note, pt had procedure at 4.30. Per DR Stevenson order-ok to discharge around 8 pm if tolerates po and ok with hospitalist. I was not contacted or notified about this discharge. On 02/02 am-noted that pt already left. HTN HLD HYpothyroidism All home meds reviewed and restarted as appropriate. Pt is full code SCD for DVT prophylaxis Status at Discharge Functional status at discharge: independent ambulation Overall status at discharge: patient is progressing back to baseline Time Spent with Patient Time attestation: Total time spent providing and/or coordinating discharge services: Time spent: Less than 30 minutes Exam Narrative: pt left on 5 pm - not examined per me at a time of discharge GI: Other: not performed at a time of discharge DS: Data Data Completed and Pending Pending studies at discharge: Pending at discharge 02/01/25 17:55 Surgical [PTH] Routine Discharge Plan Discharge Attending physician on discharge: Ethel Waller Consulting providers: Richard Stevenson; Alicia Almanza; Neha Wadsworth; Jordy Torres; Stephy Moreno; Dallas Deshpande; Francis Vides Discharging Clinician: Richard Stevenson Patient Disposition: Home Activity: other - see discharge instructions Diet: other - see discharge instructions Discharge Instructions: 1) Activity: no driving or important decisions x24 hours. 2) Diet: resume your normal, pre-admission diet. 3) Follow-up: 7-10 days for stent removal / call for appointment ). Patient Instructions: Antibiotic Form Patient Language: Latvian Stand Alone Forms: General Discharge Information Follow-up/Referrals: Richard Stevenson MD [Physician] - Discharge Medications: New hydrocodone-acetaminophen 5-325 mg tablet 1 - 2 tablet PO Q6H PRN (Reason: pain) Qty: 24 0RF cephalexin 500 mg capsule 500 mg PO Q8H Qty: 9 0RF Continued losartan 100 mg tablet 100 mg PO QAM Qty: 90 3RF amlodipine 10 mg tablet 10 mg PO DAILY atorvastatin 20 mg tablet 20 mg PO QHS Qty: 90 3RF levothyroxine 150 mcg tablet 150 mcg PO DAILY Qty: 90 0RF Date of admission: 02/01/25 03:05 Primary Care Provider: Linda Gupta Admitting Provider: Ethel Waller Attending physician on admission: Ethel Waller Condition: Stable Quality VTE Prophylaxis VTE prophylaxis: mechanical ordered Hospitalist MIPS Heart Failure (Exclusion) Patient has history of Heart Transplant or Left Ventricular Assistive Device?: No IF YES, STOP HERE Heart Failure (Qualifier) Patient has current or prior documentation of LVEF less than or equal to 40%, or mod/servere depressed LVSF?: No IF NO, STOP HERE
--- NOTE | 2025-02-02 16:29 | P.DS_ITS ---
DS: Admitting Diagnosis Discharge Date 02/01/25 Admitting Diagnosis 1. Right ureteral calculus 2. Bilateral renal calculi DS: Summary Hospital Course Hospital Course: Patient is known to have bilateral renal pelvic calculi for several years. it was not until the day subsequent to admission that these began to cause problems. Specifically he developed acute right flank pain. Imaging demonstrated a 5 mm obstructing right mid ureteral calculus. . During that admission he underwent cystoscopy with right ureteroscopy, laser lithotripsy with stone extraction and stent placement. It was discharged the evening of the procedure, comfortable and tolerating a diet. will make arrangements for stent removal either in the office or at time of simultaneous ESWL Time Spent with Patient Time attestation: Total time spent providing and/or coordinating discharge services: DS: Data Data Completed and Pending Pending studies at discharge: Pending at discharge 02/01/25 17:55 Surgical [PTH] Routine Discharge Plan Discharge Attending physician on discharge: Ethel Waller Consulting providers: Richard Stevenson; Alicia Almanza; Neha Wadsworth; Jordy Torres; Stephy Moreno; Dallas Deshpande; Francis Vides Discharging Clinician: Richard Stevenson Patient Disposition: Home Activity: other - see discharge instructions Diet: other - see discharge instructions Discharge Instructions: 1) Activity: no driving or important decisions x24 hours. 2) Diet: resume your normal, pre-admission diet. 3) Follow-up: 7-10 days for stent removal / call for appointment ([phone]) . Patient Instructions: Antibiotic Form Patient Language: Maori Stand Alone Forms: General Discharge Information Follow-up/Referrals: Richard Stevenson MD [Physician] - Discharge Medications: New hydrocodone-acetaminophen 5-325 mg tablet 1 - 2 tablet PO Q6H PRN (Reason: pain) Qty: 24 0RF cephalexin 500 mg capsule 500 mg PO Q8H Qty: 9 0RF Continued losartan 100 mg tablet 100 mg PO QAM Qty: 90 3RF amlodipine 10 mg tablet 10 mg PO DAILY atorvastatin 20 mg tablet 20 mg PO QHS Qty: 90 3RF levothyroxine 150 mcg tablet 150 mcg PO DAILY Qty: 90 0RF Date of admission: 02/01/25 03:05 Primary Care Provider: Linda Gupta Admitting Provider: Ethel Waller Attending physician on admission: Ethel Waller Condition: Stable
== END 2025-02-01 20:00 | disposition home or self-care (01) ==
LOC: ANHED 02-01 03:09 → ANH2MED 02-01 04:47
PROVIDERS: Registered Nurse; Urology; Admitting Provider Internal Medicine; Emergency Provider Emergency Medicine; PCP Nurse Practitioner Family; Visit Provider Internal Medicine
PROC: (CPT 52352; principal; 2025-02-01 17:00)
DX: N20.1 Calculus of ureter (principal); N20.0 Calculus of kidney; I10 Essential (primary) hypertension; E78.5 Hyperlipidemia, unspecified; E03.9 Hypothyroidism, unspecified; Z79.899 Other long term (current) drug therapy
CPT/HCPCS: 52356; 36415; 74018; 74177; 74420; 80053; 81001; 82365; 85025; 88300; 96361; 96374; 96375; 96376; 99285; A9270; C1769; C1894; C2617; G0378; J0690; J1100; J1171; J1885; J1938; J2003; J2250; J2270; J2405; J2704; J3010; J7030; J7120; Q9966; Q9967

== ENCOUNTER 2025-02-03 17:00 | Emergency (ER) | payer OTHER, SELFPAY ==
[2025-02-03] VITALS (9 sets, daily range): BP systolic 133–146; BP diastolic 86–93; PULSE 61–76; RESP 14–19; TEMP 36.1–36.6; O2SAT 95–98
--- NOTE | ~2025-02-03 | CT_ITS ---
CT abdomen pelvis wo con Ordering provider: Colin Garduno MD History: 54 years Male with . renal stones and new stent, increased pain . Comparison: February 01, 2025 Technique: CT abdomen and pelvis without IV and without oral contrast. Automated exposure control and iterative reconstruction technique were employed. The dose-length product was 206.46 mGy-cm. Findings: VISUALIZED LOWER CHEST: Subsegmental atelectatic changes in the right lower lobe. UPPER ABDOMINAL ORGANS: Liver: Normal. Gallbladder: Hyperdense material is seen in the posterior aspect of the gallbladder suggestive of slu dge. Spleen: Normal. Stomach/duodenum: Normal. Pancreas: Normal. Adrenals: Normal. Kidneys: Right double-J stent is noted with a stone in the lower pole measuring 1 cm. Adjacent tiny s tones also noted. Tiny stone is seen in the left kidney upper pole. Multiple stones in the left kidne y lower pole are noted with the largest measuring 1.1 and 0.8 cm. Other smaller stones are noted. Mild right hydronephrotic changes. PELVIC ORGANS: The bladder is normal. BOWEL AND MESENTERY: Colon: No evidence of diverticulitis.. No evidence of appendicitis. Small Bowel: Normal. No obstruction. Peritoneum/mesentery: No free air or free fluid. No mesenteric lymphadenopathy. RETROPERITONEUM: Mild atheromatous disease of the abdominal aorta. No retroperitoneal lymphadenopat hy. MUSCULOSKELETAL: Superficial soft tissues: The superficial soft tissues are normal. Bones: Age appropriate degenerative changes of the spine. IMPRESSION: 1. Bilateral kidney stones. Mild right hydronephrotic changes. 2. No evidence of appendicitis, diverticulitis or intestinal obstruction. 3. Constipation. Reviewed, dictated and finalized at location A.
--- OUTSIDE RECORDS SUMMARY | 2025-02-03 17:03 | XMS_ITS | Referral Summary ---
Author Organization 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
--- OUTSIDE RECORDS SUMMARY | 2025-02-03 17:03 | XMS_ITS | Clinical Summary ---
Author Organization [facility] Address [address] [place] [address] Care Team Providers Care Broiler Supervisor Name Role Phone Paty Tellez MD Primary Care Provider [phone] Source Comments [facility],non-owned Affiliates and Associated Physician Practices is amultiple site organization consisting of ambulatory clinics and hospital sitesin [place], [place], [place] and [place]. This disclosure is being madepursuant to the Care Everywhere program and may not contain all information available regarding this patient. 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 Gender Identity Not on file Sexual Orientation Not on file Occupation Industry Job Start Date Job End Date [employer] Not on file Not on file Not on file Last Filed Vital Signs Vital Sign Reading Time Taken Comments Blood Pressure - - Pulse - - Temperature - - Respiratory Rate - - Oxygen Saturation - - Inhaled Oxygen Concentration - - Weight 81.6 kg (180 lb) 08/31/2014 11:44 AM MANAGER HOME Height 182.9 cm (6') 08/31/2014 11:44 AM MANAGER HOME Body Mass Index 24.41 08/31/2014 11:44 AM MANAGER HOME Plan of Treatment Health Maintenance Due Date [...] patient's age to complete this topic Insurance [facility] [place] [id number] Care Teams Broiler Supervisor Relationship Specialty Start Date End Date Paty Tellez MD [address] [place] [phone] PCP - General Family Medicine 08/31/14
--- OUTSIDE RECORDS SUMMARY | 2025-02-03 17:03 | XMS_ITS | Data Portability ---
Author Organization [facility] [employer], Main Office Address [address] [place] [address] Care Team Providers Care Batch Plant Supervisor Name Role Phone IVAN MCCARTHY Urologist Assessment No assessment recorded. Plan of Treatment Reminders Order Date Submit Date Provider Last Modified By Organization Details Last Modified Time Details Appointments None recorded . Lab PSA, serum or plasma 023 03/02/[address] (Lab), [address] [place], [address], 3 08:13:43 CMP, serum or plasma 023 03/02/20 23 [facility] (Lab), [address] [place], [address], 3 14:26:01 TSH, serum, reflex free T4 023 03/02/[address] (Lab), [address] [place], [address], 3 08:13:43 lipid panel, serum 023 03/02/[address] (Lab), [address] [place], [address], 3 08:13:42 testoste akanksha, free + total, serum 023 03/02/[address] (Lab), [address] [place], [address], 3 08:13:43 Referral None recorded . Procedures None recorded . Surgeries None recorded . Imaging None recorded . Medication Orders None recorded . Patient TargetsNo targets recorded. Patient Instructions Encounter Date Encounter Id Patient Instructions Last Modified By Organization Details Last Modified Time 03/02/2023 [id number] fu in 3 mo for thyroid, htn, [...] Address Organization Details Recorded Time Feeling stressed [id number] Completed Not Available [facility] 3 07:32:05 Fluid level behind tympanic membrane Active Not Available [facility] 3 07:32:05 Headache 18371391 Completed Not Available [facility] 3 07:32:05 Family history of Cardiovasc ular disease 646475917 Active 2017 Not Available [facility] 3 07:32:05 Enlarged submandibu lar lymph gland 106619726 Active 2017 Not Available [facility] 3 07:32:05 Low back pain 498196367 Completed Not Available [facility] 3 07:32:06 Pain in left knee Active 2019 Not Available [facility] 3 07:32:06 Dehydratio n 03639442 Active Not Available [facility] 3 07:32:06 Elevated blood-pres sure reading without diagnosis of hypertensi on 790544327 Completed 201611/11/2018 Not Available [facility] 3 07:32:06 Sleep disorder 55519531 Completed Not Available [facility] 3 07:32:06 Hypothyroi dism 06569849 Active Not Available [facility] 3 07:32:06 Hyperlipid emia 02323936 Active Not Available [facility] 3 07:32:06 Essential hypertensi on 63355203 Active 2016 Not Available [facility] 3 07:32:06 Venous stasis 57677451 Active Not Available [facility] 3 07:32:06 Posterior rhinorrhea 85653805 Active Not Available [facility] 3 07:32:07 Fatigue 02313184 Completed 201711/11/2018 Linda Gupta NP [address] [facility], [address], [place], [address] , [employer] 3 17:44:40 Fatigue 35347898 Active 2022 Linda Gupta NP [address] [facility], [address], [place], [address] , [employer] 3 17:44:40 Problem Notes None recorded. Medical Equipment None Reported. Allergies Allergen ID Allergen Name Allergen Category Reaction Reaction Severity Criticality Documentation Date Start Date Code Code System Note Provider Name and Address Organization Details Recorded Time 74795 Product containin g penicilli n (product) medicatio n Not available Not available Not available 11/25/2022 50409 8001 SNOMED Not Available [facility] 3 07:39:31 Medications Name Sig Start [...] % 68 /min 16 /min 97.5 [degF] 94252.1 8 g 126 mm[Hg] 76 mm[Hg] Not [...] Updated DateTime 3 182.88 cm 25.3 kg/m2 45686.2 8 g 97.9 [degF] 57 /min 16 /min 94 % 94 % 0 158 mm[Hg] 96 mm[Hg] Linda Juarez RN [facility] [employer] [facility] 17:32:38 Social History Question Answer Notes LastModified by Organizat ion Details LastModified Time Tobacco Smoking Status Never Smoker Linda Juarez RN [facility], [facility] [employer] [facility] 03/02/2023 17:33:26 Do You Have An [...] not available 03/02/2023 What Is Your Occupation? [id number] Information not available 11/25/2022 How Many Days [...] not available 03/02/2023 Where Do You Live? [facility] Information not available 03/02/2023 Do You Have A Medical Power Of Electrician Manager? No Information not available 03/02/2023 Do You [...] Anxious, Or Unable To Sleep At Night)? [id number] Information not available 03/02/2023 Do You Use [...] Recorded Time Tdap 03/23/2011 completed Not Available [facility] 11/25/2022 07:39:25 Tdap 08/28/2022 completed Not Available [facility] 11/25/2022 07:39:25 Past Encounters Encounter ID Performer Location Encounter Start Date Encounter Closed Date Diagnosis/Indication Diagnosis SNOMED-CT Code Diagnosis ICD10 Code Diagnosis Note [id number] Hussein Hollins MD [facility]_[address] [address] 08/28/2022 00:00:00 08/28/2022 12:03:56 [id number] Linda Gupta NP [facility] [place] [address] [place] [address] 03/02/2023 17:20:40 03/02/2023 18:10:31 Essential hypertension 40829237 I10 <2 gm sodium diet.Losar elias 100 mg po daily.Amlo dipine 10 mg po daily.Take medication s routinely- bp 160/92 today. BP goal 130/80. If cp, sob, blurred vision, go to er for eval. Hyperlipidemia 31904632 E78.5 Atorvastat in 40 mg po nightly.Lo w fat diet. Hypothyroidism 38274412 E03.9 Levothyrox ine 150 mcg po daily. Adult heal th examination 100717481 Z00.00 Encouraged well balanced meals Screening for malignant neoplasm of prostate 056185737 Z12.5 Seeing urology. Screening for malignant neoplasm of colon 299757858 Z12.11 Had colonoscop y in 2020. Was good. FU in 10 years. Fatigue 17024587 R53.83 low libido and fatigue. Urology seen, but recommende d testostero ne levels. Health Concerns Section Related Observation LastModified by Organization Detai ls LastModified Time None Recorded Concern Status LastModified by Organization Details LastModified Time None Recorded Advance Directives Directive N: Payers Encounter Date Sequence Insurance Name Policy Number Policy Lacy Covered Member ID Lacy Member ID Guarantor Name 03/02/2023 1 [facility] [id number] Eulalio Chavarria [id number] Eulalio Chavarria Notes Date Note Type Note [...] low fat diet. Seeing dr. Mccarthy with [facility]. Linda Gupta NP [address] [facility], [facility] [address], [place], [address], [facility] [employer] [facility] 03/02/2023 18:08:07
--- OUTSIDE RECORDS SUMMARY | 2025-02-03 17:03 | XMS_ITS | Clinical Summary ---
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
--- OUTSIDE RECORDS SUMMARY | 2025-02-03 17:57 | XMS_ITS | Clinical Summary ---
Author Organization [facility] Address [address] [place] [address] Care Team Providers Care Sales And Marketing Analyst Name Role Phone Paty Tellez MD Primary Care Provider [phone] Source Comments [facility],non-owned Affiliates and Associated Physician Practices is amultiple site organization consisting of ambulatory clinics and hospital sitesin [place] and [place]. This disclosure is being madepursuant to the Care Everywhere program and may not contain all information available regarding this patient. 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 Not on file Not on file Last Filed Vital Signs Vital Sign Reading Time Taken Comments Blood Pressure - - Pulse - - Temperature - - Respiratory Rate - - Oxygen Saturation - - Inhaled Oxygen Concentration - - Weight 81.6 kg (180 lb) 08/31/2014 11:44 AM FRAMER Height 182.9 cm (6') 08/31/2014 11:44 AM FRAMER Body Mass Index 24.41 08/31/2014 11:44 AM FRAMER Plan of Treatment Health Maintenance Due Date [...] patient's age to complete this topic Insurance [facility] [address] [place] [address] Care Teams Sales And Marketing Analyst Relationship Specialty Start Date End Date Paty Tellez MD [address] [place] [phone] PCP - General Family Medicine 08/31/14
--- OUTSIDE RECORDS SUMMARY | 2025-02-03 17:57 | XMS_ITS | Referral Summary ---
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 H[facility]/PPO Address: [facility] [address] [place] [address] [address] [id number] Care Teams Aircraft Inspection Record Clerk Relationship Specialty Start Date End Date Linda Gupta NP PCP - General Nurse Practitioner 03/17/18
--- OUTSIDE RECORDS SUMMARY | 2025-02-03 17:57 | XMS_ITS | Clinical Summary ---
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
[2025-02-03 18:08] LABS: Basophils Percent Auto 0.5 % (0.2-1.2); Eosinophils Absolute Auto 0.1 K/mm3 (0-0.3); Hematocrit 46.3 % (42.0-52.0); Hemoglobin 14.6 g/dL (14.0-18.0); Immature Granulocyte Absolute 0.04 K/mm3 (0.00-0.031); Immature Granulocyte Percent A 0.5 % (0-0.5); Lymphocytes Absolute Auto 1.91 K/mm3 (0.9-3.2); Lymphocytes Percent Auto 24.6 % (18.3-44.2); Mean Corpuscular HGB Conc 31.5 g/dl (32-36); Mean Corpuscular Hemoglobin 30.4 pg (26-34); Mean Corpuscular Volume 96.3 fl (80-100); Mean Platelet Volume 10.2 fl (7.4-10.4); Monocytes Absolute Auto 0.6 K/mm3 (0.1-0.6); Monocytes Percent Auto 7.4 % (2.6-8.5); Neutrophils Absolute Auto 5.1 K/mm3 (1.3-6.7); Platelet Count Result 192 k/mm3 (150-375); Red Blood Count 4.81 M/mm3 (4.6-6.20); Red Cell Distribution Width 13.1 % (11.5-14.5); White Blood Count 7.8 K/mm3 (4.5-10.0)
[2025-02-03 18:17] LABS: Alanine Aminotransferase 28 U/L (6-50); Albumin Level 4.7 g/dL (3.5-5.1); Alkaline Phosphatase 59 U/L (38-126); Anion Gap 9 mmol/L (4-12); Aspartate Amino Transferase 39 U/L (17-59); Bilirubin,Total 0.7 mg/dL (0.2-1.3); Blood Urea Nitrogen 17 mg/dL (9-20); Calcium 8.9 mg/dL (8.4-10.2); Carbon Dioxide 32 mmol/L (22-30); Chloride 102 mmol/L (98-107); Estimated CRCL calculation 88 ml/min; Estimated Glomerular Filt Rate > 60; Glucose 111 mg/dL (65-110); Lipase 121 U/L (23-300); Potassium 3.9 mmol/L (3.4-5.0); Sodium 143 mmol/L (137-145)
[2025-02-03 18:26] LABS: Bacteria Urine None Seen /hpf; Need Manual Microscopic Reviewed; RBC Urine >100 /hpf (0-2); Squamous Epithelial Cell Urine None Seen /hpf (Few)
[2025-02-03 18:28] LABS: Add Urine Microscopic? YES; Appearance Urine Cloudy (Clear); Bilirubin Urine Negative (Negative); Blood Urine 3+ (Negative); Color Urine Light Red (Yellow); Glucose Urine UA Negative (Negative); Ketones Urine Negative (Negative); Leukocyte Esterase Ur 2+ LEU/UL (Negative); Nitrate Urine Negative (Negative); Protein Urine 2+ mg/dL (Negative); Specific Grav Ur 1.013 (1.001-1.035)
--- NOTE | 2025-02-03 18:41 | ED_ITS ---
HPI - Male Genitourinary General Chief complaint: Urogenital-Male Stated complaint: Right side kidney pain-recent stent placement Time Seen by Provider: 02/03/25 17:50 History of Present Illness HPI Narrative: 54-year-old male with a past medical history including multiple kidney stones status post laser lithotripsy and stone extraction status post stent placement 2 days ago with his urologist Dr. Stevenson. Patient went home the following morning without any issue. He states he has been urinating well and still having some blood in his urine which is to be expected. He was discharged on antibiotic and hydrocodone which he has been taking. Today started experiencing right-sided flank pain that was severe and cramping and then started migrating towards his pelvis and felt like it was in his groin. On arrival to the emergency department he states that he went to the bathroom and felt like he passed another kidney stone had instantaneous relief of all the symptoms. He stated that since he was in the emergency department he wished to be evaluated. Denies any nauseousness, vomiting, abdominal pain presently. No testicular pain or swelling. No injury or trauma. No fever chills. No chest pain or shortness of breath. Related Data Home Medications ?Medication ?Instructions ?Recorded ?Confirmed ?Last Taken ?Type amlodipine 10 mg tablet 10 mg PO DAILY 02/01/25 02/01/25 01/31/25 History Allergies Allergy/AdvReac Type Severity Reaction Status Date / Time Penicillins Allergy Unknown Swelling Verified 02/03/25 17:01 Review of Systems 2 Review of Systems: As reviewed above in HPI [facility] Past Medical History Medical History Nephrolithiasis Hypothyroidism Hypertension Dyslipidemia Surgical History Surgical History Hx of tonsillectomy History of arthroscopy of left shoulder S/P left knee arthroscopy Family History Family History Father Hypertension Heart disease Social History Social History Social History: 11/14/24 very confident with medical forms Smoking status: Never smoker Alcohol intake: never Substance use: never Substance use type: does not use Do You Feel Safe in your Home?: Yes Lack of Transportation: No Lack of Food: Never True Current Housing: I Have Housing Concerned About Future Housing: No Difficulty Paying Gas/Electric Bills: No Difficulty Paying for Meds: No Currently Unemployed: No Education: Bachelor's Degree Difficulty w/ Childcare or Family Care: No Living arrangements: with family Occupation/Education: occupation Additional occupation/education comments: [employer] at [employer] Gender identity (if verbalized by the patient): Male Sexual Orientation (if Verbalized by the Patient): Straight or Heterosexual Spiritual care concerns: No Agree to blood products: Yes Exam 2 Narrative: GENERAL: [Well-appearing, well-nourished, and in no acute distress.] HEAD: [Normocephalic, atraumatic.] EYES: [PERRLA and EOMI.] ENT: Nares clear, no rhinorrhea or epistaxis. Mucous membranes moist. NECK: Supple. CHEST: [Clear to auscultation. No respiratory distress.] HEART: [Regular rate and rhythm]. No murmur heard. [Normal peripheral pulses.] ABDOMEN: [Soft, nondistended], [nontender], [No rigidity or guarding] EXTREMITIES: Normal range of motion. [No edema.] SKIN: Warm, dry, no rash. NEURO: [No focal deficits]. Alert and oriented [x3.] PSYCH: [Normal mood and affect.] Course Vital Signs Vital signs: Vital Signs Temperature 36.1 C L 02/03/25 17:07 Pulse Rate 61 02/03/25 17:07 Respiratory Rate 18 02/03/25 17:07 Blood Pressure 146/86 H 02/03/25 17:07 Pulse Oximetry 97 02/03/25 17:07 Temperature 36.6 C 02/03/25 19:24 Pulse Rate 64 02/03/25 19:24 Respiratory Rate 14 02/03/25 19:24 Blood Pressure 133/93 H 02/03/25 19:24 Pulse Oximetry 98 02/03/25 19:24 MDM - Male Genitourinary MDM Narrative Medical decision making narrative: 54-year-old male with history of kidney stones postop day 2 from a cystoscopy with right ureteroscopy and laser lithotripsy with stone extraction with stent placement. Patient was discharged the following day and doing well postoperatively but today states that he was having some right-sided flank pain that was severe and migrating towards his groin. On arrival to the emergency department he states he went to the bathroom feels like he passed a kidney stone with complete resolution of his symptoms. Patient has an unremarkable physical examination with normal vital signs and is afebrile. Urinalysis and a CT scan was already obtained and CBC and CMP were ordered to assess for any electrolyte imbalances or infectious signs. Patient is presently not in any pain which is reassuring. Suspect that he may have passed another kidney stone during the lithotripsy verses ureteral stent migration verses UVJ stone versus obstruction. Low suspicion complication from the procedure but spasms of the urinary system or laceration of the urinary system possible. Patient is presently asymptomatic which is reassuring. Laboratory studies showed no urinary infection but hematuria which is to be expected. Normal white count without elevation, normal renal function. CT scan is pending, but patient does not want to wait for these results as he states he is fine and wishes to go. Patient is discharged at this time and encouraged to follow-up with his urologist. If there is any emergent concerns patient will be contacted regarding his results. Medical Records Attestation: I reviewed the patient's medical records. Lab Data Attestation: I reviewed the patient's lab results. 02/03/25 17:59 02/03/25 17:59 Labs: Lab Results 02/03/25 Range/Units 17:59 WBC 7.8 (4.5-10.0) K/mm3 RBC 4.81 (4.6-6.20) M/mm3 Hgb 14.6 (14.0-18.0) g/dL Hct 46.3 (42.0-52.0) % MCV 96.3 (80-100) fl MCH 30.4 (26-34) pg MCHC 31.5 L (32-36) g/dl RDW 13.1 (11.5-14.5) % Plt Count 192 (150-375) k/mm3 MPV 10.2 (7.4-10.4) fl Immature Gran % (Auto) 0.5 (0-0.5) % Neut % (Auto) 66.0 (45.5-73.1) % Lymph % (Auto) 24.6 (18.3-44.2) % [place] % (Auto) 7.4 (2.6-8.5) % Eos % (Auto) 1.0 (0-4.4) % Baso % (Auto) 0.5 (0.2-1.2) % Lymph # (Auto) 1.91 (0.9-3.2) K/mm3 [place] # (Auto) 0.6 (0.1-0.6) K/mm3 Eos # (Auto) 0.1 (0-0.3) K/mm3 Baso # (Auto) 0.0 (0.0-0.1) K/mm3 Abs Immat Gran (auto) 0.04 H (0.00-0.031) K/mm3 Absolute Neuts (auto) 5.1 (1.3-6.7) K/mm3 Absolute Nucleated RBC 0.000 (0.0-0.012) K/mm3 Nucleated RBC % 0.0 (0.0-0.2) % Sodium 143 (137-145) mmol/L Potassium 3.9 (3.4-5.0) mmol/L Chloride 102 (98-107) mmol/L Carbon Dioxide 32 H (22-30) mmol/L Anion Gap 9 (4-12) mmol/L BUN 17 (9-20) mg/dL Creatinine 0.91 (0.7-1.3) mg/dL Estim Creat Clear Calc 88 ml/min Estimated GFR > 60 (59 - ) Glucose 111 H (65-110) mg/dL Calcium 8.9 (8.4-10.2) mg/dL Total Bilirubin 0.7 (0.2-1.3) mg/dL AST 39 (17-59) U/L ALT 28 (6-50) U/L Alkaline Phosphatase 59 (38-126) U/L Total Protein 8.0 (6.3-8.2) g/dL Albumin 4.7 (3.5-5.1) g/dL Lipase 121 (23-300) U/L Urine Color Light red H (Yellow) Urine Appearance Cloudy H (Clear) Urine pH 8.0 (5.0-9.0) Ur Specific [place] 1.013 (1.001-1.035) Urine Protein 2+ H (Negative) mg/dL Urine Glucose (UA) Negative (Negative) mg/dL Urine Ketones Negative (Negative) mg/dL Ur Blood (Man) 3+ H (Negative) Urine Nitrate Negative (Negative) Urine Bilirubin Negative (Negative) Urine Urobilinogen 1.0 (<2.0) mg/dL Add Ur Microanalysis Reviewed Leukocyte Esterase Rfl 2+ H (Negative) JASE/UL Urine RBC >100 H (0-2) /hpf Urine WBC 11-20 H (0-3) /hpf Ur Squamous Epith Cells None seen (Few) /hpf Urine Bacteria None seen /hpf Urine Casts 3-5 Discharge Plan Discharge Clinical Impression: Renal colic on right side, Kidney stone Patient Disposition: Home Condition: Stable Instructions: Antibiotic Form, Renal Colic (ED), Flank Pain (ED) Additional Instructions: Follow-up with your urologist, take your prescribed pain medications and finish your antibiotics. Return with any emergent concerns at any time. Patient Language: Chinese Prescriptions: No Action losartan 100 mg tablet 100 mg PO QAM Qty: 90 3RF amlodipine 10 mg tablet 10 mg PO DAILY hydrocodone-acetaminophen 5-325 mg tablet 1 - 2 tablet PO Q6H PRN (Reason: pain) Qty: 24 0RF cephalexin 500 mg capsule 500 mg PO Q8H Qty: 9 0RF atorvastatin 20 mg tablet 20 mg PO QHS Qty: 90 3RF levothyroxine 150 mcg tablet 150 mcg PO DAILY Qty: 90 0RF Follow-up/Referrals: Linda Gupta APRN [Primary Care Provider] - Time of Disposition: 19:16
== END 2025-02-03 19:26 | disposition home or self-care (01) ==
PROVIDERS: Emergency Provider Student in an Organized Health Care Education/Training Program; PCP Nurse Practitioner Family
DX: N20.0 Calculus of kidney (principal); Z87.442 Personal history of urinary calculi; I10 Essential (primary) hypertension; E78.5 Hyperlipidemia, unspecified; E03.9 Hypothyroidism, unspecified; Z96.0 Presence of urogenital implants; Z79.899 Other long term (current) drug therapy
CPT/HCPCS: 36415; 74176; 80053; 81001; 83690; 85025; 87086; 99284

== ENCOUNTER 2025-03-07 07:06 | Outpatient (CLI) | payer OTHER, SELFPAY ==
--- OUTSIDE RECORDS SUMMARY | 2025-03-07 07:08 | XMS_ITS | Continuity of Care Document ---
Author Organization [facility] Address [address] [place] [address] Phone Care Team Providers Care Instrument Lens Grinder Name Role Phone Russell Eid MD Unavailable Unavailable Procedures Procedure Date US XTR NON-VASC COMPLETE Advance Directives Directive Yes / No Effective Date File Name No Information Encounters Encounter Description Practice Location Reason(s) For Visit Diagnoses Date Provider Providers Copied on Encounter [employer] [facility], [address], [place], [place], [id number], [place] tel:[phone] [facility] No Information Ragini Wells. [address], [place], [id number], [place]. tel:[phone] Referring Provider: Soham Hensley [address], [place], [address]. tel:[phone] Family History Family Member Type Diagnosis Age At Onset No Information Payers Payer name Insurance type Covered libertarian ID Authoriza tion(s) [facility] CI [id number] Social History Type Description Quantity Date Captured Comments Sex Male Smoking Status No Information Chief Complaint And Reason For Visit No Information Reason For Referral Reason For Referral No Information History Of Present Illness Encounter Date Complaint History Of Prese nt Illness No Information Functional Status Date Functional Assessmen t No Information Instructions Date Instruction Additional Infor mation No Information Assessments Type Assessment Date No Information Patient Care Teams Name Effective Dates (start - stop) Status Members No Information
--- OUTSIDE RECORDS SUMMARY | 2025-03-07 07:08 | XMS_ITS | Clinical Summary ---
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
--- OUTSIDE RECORDS SUMMARY | 2025-03-07 07:09 | XMS_ITS | Referral Summary ---
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
--- OUTSIDE RECORDS SUMMARY | 2025-03-07 07:09 | XMS_ITS | Clinical Summary ---
Author Organization [facility] Address [address] [facility] [place] [address] Care Team Providers Care Textile Clothing And Footwear Mechanic Name Role Phone Paty Tellez MD Primary Care Provider [phone] Source Comments [facility],non-owned Affiliates and Associated Physician Practices is amultiple site organization consisting of ambulatory clinics and hospital sitesin [place], [place], [place] and [place]. This disclosure is being madepursuant to the Care Everywhere program and may not contain all information available regarding this patient. 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 Not on file Not on file Last Filed Vital Signs Vital Sign Reading Time Taken Comments Blood Pressure - - Pulse - - Temperature - - Respiratory Rate - - Oxygen Saturation - - Inhaled Oxygen Concentration - - Weight 81.6 kg (180 lb) 08/31/2014 11:44 AM SPICE BLENDER Height 182.9 cm (6') 08/31/2014 11:44 AM SPICE BLENDER Body Mass Index 24.41 08/31/2014 11:44 AM SPICE BLENDER Plan of Treatment Health Maintenance Due Date [...] patient's age to complete this topic Insurance [facility] AETNA SELF PAY NO INSURANCE Member Subscriber Plan / Payer (Ef fective for All Dates) Name:Juli Chavarria Member ID:Not on file Relation to Subscriber:Not on file Name:JULI CHAVARRIA Subscriber ID:Not on file (Home) Address: [address] [place] [address] [place] [address] Payer ID:Not on file Group ID:Not on file Type:Self Pay Address: [place], [place] Care Teams Textile Clothing And Footwear Mechanic Relationship Specialty Start Date End Date Payt Tellez MD [address] [place] [phone] PCP - General Family Medicine 08/31/14
--- OUTSIDE RECORDS SUMMARY | 2025-03-07 07:09 | XMS_ITS | Data Portability ---
Author Organization [facility] [email or web address], Main Office Address [address] [place] [address] Care Team Providers Care Mystery Shopper Name Role Phone IVAN MCCARTHY Urologist Assessment No assessment recorded. Plan of Treatment Reminders Order Date Submit Date Provider Last Modified By Organization Details Last Modified Time Details Appointments None recorded . Lab PSA, serum or plasma 023 03/02/[address] (Lab), [address] [place], [address], 3 08:13:43 CMP, serum or plasma 023 03/02/20 23 [facility] (Lab), [address] [place], [address], 3 14:26:01 TSH, serum, reflex free T4 023 03/02/[address] (Lab), [address] [place], [address], 3 08:13:43 lipid panel, serum 023 03/02/[address] (Lab), [address] [place], [address], 3 08:13:42 testoste akanksha, free + total, serum 023 03/02/[address] (Lab), [address] [place], [address], 3 08:13:43 Referral None recorded . Procedures None recorded . Surgeries None recorded . Imaging None recorded . Medication Orders None recorded . Patient TargetsNo targets recorded. Patient Instructions Encounter Date Encounter Id Patient Instructions Last Modified By Organization Details Last Modified Time 03/02/2023 [id number] fu in 3 mo for thyroid, htn, [...] Address Organization Details Recorded Time Feeling stressed 710575913 Completed Not Available [facility] 3 07:32:05 Fluid level behind tympanic membrane Active Not Available [facility] 3 07:32:05 Headache 43977379 Completed Not Available [facility] 3 07:32:05 Family history of Cardiovasc ular disease 633948594 Active 2017 Not Available [facility] 3 07:32:05 Enlarged submandibu lar lymph gland 568939135 Active 2017 Not Available [facility] 3 07:32:05 Low back pain 572951282 Completed Not Available [facility] 3 07:32:06 Pain in left knee Active 2019 Not Available [facility] 3 07:32:06 Dehydratio n 42753969 Active Not Available [facility] 3 07:32:06 Elevated blood-pres sure reading without diagnosis of hypertensi on 292573398 Completed 201611/11/2018 Not Available [facility] 3 07:32:06 Sleep disorder 05018085 Completed Not Available [facility] 3 07:32:06 Hypothyroi dism 72688726 Active Not Available [facility] 3 07:32:06 Hyperlipid emia 18360348 Active Not Available [facility] 3 07:32:06 Essential hypertensi on 38819101 Active 2016 Not Available [facility] 3 07:32:06 Venous stasis 67080353 Active Not Available [facility] 3 07:32:06 Posterior rhinorrhea 20077804 Active Not Available [facility] 3 07:32:07 Fatigue 13613508 Completed 201711/11/2018 Linda Gupta NP [address] [facility], [place], [address] , [employer] 3 17:44:40 Fatigue 38180801 Active 2022 Linda Gupta NP [address] [facility] [facility], [place], [address] , [employer] 3 17:44:40 Problem Notes None recorded. Medical Equipment None Reported. Allergies Allergen ID Allergen Name Allergen Category Reaction Reaction Severity Criticality Documentation Date Start Date Code Code System Note Provider Name and Address Organization Details Recorded Time 22091 Product containin g penicilli n (product) medicatio n Not available Not available Not available 11/25/2022 26421 8001 SNOMED Not Available [facility] 3 07:39:31 Medications Name Sig Start Date [...] Available Not Available Vitals Date Recorded Body height Body mass index (BMI) Body weight Body temperature Heart rate Respiratory rate Oxygen saturation Oxygen saturation in Arterial blood by Pulse oximetry Systolic blood pressure Diastolic blood pressure Provider Name and Address Organization Details Last Updated DateTime 3 182.88 cm 25.3 kg/m2 14072.2 8 g 97.9 [degF] 57 /min 16 /min 94 % 94 % 158 mm[Hg] 96 mm[Hg] Linda Juarez RN [place] - [facility] [email or web address] 3 17:32:38 Date Recorded Body mass index (BMI) Body height Oxygen saturation Oxygen saturation in Arterial blood by Pulse oximetry Heart rate Respiratory rate Body temperature Body weight Systolic blood pressure Diastolic blood pressure Provider Name and Address Organization Details Last Updated DateTime 2 25.2 kg/m2 182.88 cm 98 % 98 % 68 /min 16 /min 97.5 [degF] 34889.1 8 g 126 mm[Hg] 76 mm[Hg] Not Available [employer] 07:30:23 Social History Question Answer Notes LastModified by Organizat ion Details LastModified Time Tobacco Smoking Status Never Smoker Linda Juarez RN [place], [facility] [employer] [facility] 03/02/2023 17:33:26 Do You Have An Advance Directive? No Information not available 03/02/2023 Is Blood Transfusion [...] Was Ill? No Information not available 03/02/2023 What Type Of Diet Are You Following? REGULAR Information not available 03/02/2023 How Many Days Of Moderate To Strenuous [...] not available 03/02/2023 Where Do You Live? [facility] Information not available 03/02/2023 Do You Have A Medical Power Of Data Collection Associate? No Information not available 03/02/2023 Do You [...] Lifting Information not available 03/02/2023 Do You Use Sunscreen Routinely? No Information not available 03/02/2023 Have You Recently Traveled Abroad? No Information not available 03/02/2023 Sex: Unknown Functional Status Question Answer Note LastModified by Organizat ion Details LastModified Time What is your level of alcohol consumption? None Information not available 03/02/2023 Are you currently employed? 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 Heavy Information not available 03/02/2023 Mental Status Question Answer Note LastModified by Organization D etails LastModified Time Do you feel stressed (tense, restless, nervous, or anxious, or unable to sleep at night)? EG0194-4 Information not available 03/02/2023 Family History Nothing Reported. Medical History Condition Response HYPERTHYROIDISM Y HYPERTENSION Y HIGH CHOLESTEROL / HYPERLIPIDEMIA Y Immunizations Vaccine Type Date Status Note Provider Nam e and Address Organization Details Recorded Time Tdap 03/23/2011 completed Not Available [facility] 11/25/2022 07:39:25 Tdap 08/28/2022 completed Not Available [facility] 11/25/2022 07:39:25 Past Encounters Encounter ID Performer Location Encounter Start Date Encounter Closed Date Diagnosis/Indication Diagnosis SNOMED-CT Code Diagnosis ICD10 Code Diagnosis Note [id number] Hussein Hollins MD [address] [address] 08/28/2022 00:00:00 08/28/2022 12:03:56 [id number] Linda Gupta NP [facility] [address] [place] [address] 03/02/2023 17:20:40 03/02/2023 18:10:31 Essential hypertension 55295817 I10 <2 gm sodium diet.Losar elias 100 mg po daily.Amlo dipine 10 mg po daily.Take medication s routinely- bp 160/92 today. BP goal 130/80. If cp, sob, blurred vision, go to er for eval. Hyperlipidemia 34815908 E78.5 Atorvastat in 40 mg po nightly.Lo w fat diet. Hypothyroidism 48621297 E03.9 Levothyrox ine 150 mcg po daily. Adult heal th examination 331803233 Z00.00 Encouraged well balanced meals Screening for malignant neoplasm of prostate 289758762 Z12.5 Seeing urology. Screening for malignant neoplasm of colon 156422282 Z12.11 Had colonoscop y in 2020. Was good. FU in 10 years. Fatigue 44436433 R53.83 low libido and fatigue. Urology seen, but recommende d testostero ne levels. Health Concerns Section Related Observation LastModified by Organization Detai ls LastModified Time None Recorded Concern Status LastModified by Organization Details LastModified Time None Recorded Advance Directives Directive N: Payers Encounter Date Sequence Insurance Name Policy Number Policy Lacy Covered Member ID Lacy Member ID Guarantor Name 03/02/2023 1 [facility] [id number] Eulalio Chavarria [id number] Eulalio Chavarria Notes Date Note Type Note [...] low fat diet. Seeing dr. Mccarthy with [facility]. Linda Gupta NP [address] [facility] [address], [place], [address], [facility] [employer] [facility] 03/02/2023 18:08:07
[2025-03-07 07:53] LABS: Add Urine Microscopic? YES; Appearance Urine Clear (Clear); Bacteria Urine None Seen /hpf; Bilirubin Urine Negative (Negative); Blood Urine 3+ (Negative); Color Urine Yellow (Yellow); Glucose Urine UA Negative (Negative); Ketones Urine Negative (Negative); Leukocyte Esterase Ur Trace LEU/UL (Negative); Nitrate Urine Negative (Negative); Non Pathogenic Casts 0-2; Protein Urine 1+ mg/dL (Negative); RBC Urine >100 /hpf (0-2); Specific Grav Ur 1.012 (1.001-1.035); Squamous Epithelial Cell Urine None Seen /hpf (Few); Urobilinogen Urine 0.2 mg/dL (<2.0)
[2025-03-07 08:10] LABS: INR 1.1; Prothrombin Time 14.6 Seconds (11.1-14.7)
[2025-03-07 08:11] LABS: Partial Thromboplastin Time 25.5 Seconds (22.3-36.8)
== END 2025-03-07 07:07 | disposition home or self-care (01) ==
PROVIDERS: PCP Nurse Practitioner Family; Visit Provider Urology
DX: Z01.818 Encounter for other preprocedural examination (principal); N20.1 Calculus of ureter
CPT/HCPCS: 36415; 81001; 85610; 85730; 87086

== ENCOUNTER 2025-03-09 02:00 | Day surgery (SDC) | payer OTHER, SELFPAY ==
--- NOTE | 2025-02-13 06:47 | P.HP_ITS ---
History of Present Illness History of Present Illness Consent: Risks, benefits, and alternatives have been discussed and questions answered. Patient agrees to proceed with procedure. Chief complaint: Right Ureteral Stone Narrative: Eulalio Chavarria is a 54 year old male with recurrent renal stone has been followed for years by Dr. Radha Hui with bilat. renal stones. Recent right renal colic and underwent right ureteroscopy with stone extraction. Now elects to treat right stone with ESWL. Review of Systems Cardiovascular: Cardiovascular: Denies chest pain, Denies lightheadedness, Denies palpitations and Denies dyspnea Respiratory: Respiratory: Denies dyspnea Gastrointestinal: Gastrointestinal: Denies diarrhea, Denies nausea and Denies vomiting Genitourinary: Genitourinary: Denies hematuria and Denies dysuria Endocrine: Endocrine: Denies palpitations PMFSH Past Medical History Medical History Nephrolithiasis Hypothyroidism Hypertension Dyslipidemia Surgical History Surgical History Hx of tonsillectomy History of arthroscopy of left shoulder S/P left knee arthroscopy Family History Family History Father Hypertension Heart disease Social History Social History Social History: 11/14/24 very confident with medical forms Smoking status: Never smoker Alcohol intake: never Substance use: never Substance use type: does not use Do You Feel Safe in your Home?: Yes Lack of Transportation: No Lack of Food: Never True Current Housing: I Have Housing Concerned About Future Housing: No Difficulty Paying Gas/Electric Bills: No Difficulty Paying for Meds: No Currently Unemployed: No Education: Bachelor's Degree Difficulty w/ Childcare or Family Care: No Living arrangements: with family Occupation/Education: occupation Additional occupation/education comments: [employer] at [employer] Gender identity (if verbalized by the patient): Male Sexual Orientation (if Verbalized by the Patient): Straight or Heterosexual Spiritual care concerns: No Agree to blood products: Yes Meds Home Medications and Allergies Home Medications ?Medication ?Instructions ?Recorded ?Confirmed ?Type atorvastatin 20 mg tablet 20 mg PO QHS #90 tabs 03/03/24 02/01/25 Rx levothyroxine 150 mcg tablet 150 mcg PO DAILY #90 tabs 08/04/24 02/01/25 Rx losartan 100 mg tablet 100 mg PO QAM #90 tabs 11/14/24 02/01/25 Rx amlodipine 10 mg tablet 10 mg PO DAILY 02/01/25 02/01/25 History cephalexin 500 mg capsule 500 mg PO Q8H #9 caps 02/01/25 Rx hydrocodone 5 mg-acetaminophen 325 1 - 2 tablet PO Q6H PRN pain #24 02/01/25 Rx mg tablet tabs Allergies Allergy/AdvReac Type Severity Reaction Status Date / Time Penicillins Allergy Unknown Swelling Verified 02/03/25 17:01 Exam Const: General: no acute distress Resp: Effort & Inspection: normal respiratory effort GI: Inspection: non-distended GI Palp: No abdominal tenderness and No Guarding due to palpation present (GI) Auscultation: normal bowel sounds Assessment and Plan Assessment and plan (1) Bilateral renal stones: Code(s): N20.0 - Calculus of kidney Status: Acute Assessment and Plan: * Cystoscopy, right stent removal, right ESWL
[2025-03-06 08:36] VITALS: BMI 26.3
--- NOTE | 2025-03-06 08:56 | PC.NURSE ---
Report to the Outpatient Waiting Room, entrance under the green pavilion located off [facility], at time ___6:30AM___ on date __03/09/25____. Planned Procedure Time: ___8:30AM .? Time changes happen often and if your time is changed the preop area will call you the afternoon before. - You and your visitor will be asked to self-screen and do not enter if you have any COVID symptoms. Please call surgeon if you need to reschedule. - A mask is optional within the hospital at this time. Patients may have clear liquids (water, carbonated beverages, clear teas, apple juice) until 3 hours prior to surgery (5:30AM) with a maximum of 20 ounces. - No food from midnight until time of surgery and no smoking, or chewing tobacco (or any form of nicotine). No chewing gum, candy or mints. Take only the following medications with a SIP of water on the morning of surgery: ____AMLODIPINE, LEVOTHYROXINE DO NOT STOP ANY OF YOUR OTHER PRESCRIPTION MEDICATIONS PRIOR TO SURGERY EXCEPT THE FOLLOWING Hold all vitamins and supplements for 3 days per anesthesiologist.- STARTING NOW (03/06/25) Please no make-up, nail somali, hairspray, perfume, deodorant, or body powder the day of surgery.? No jewelry (including any body piercings) or valuables the day of surgery, leave them at home.? Please take a shower or bath the night before, or the morning of, surgery with an antibacterial soap.? Wear comfortable, loose fitting clothing.? - Jewelry must be removed prior to entering the operating room.? Rings and piercings that are not removed may be cut off. - The hospital will not accept responsibility for valuables.? - Please leave all valuables, including medications, at home the day of surgery. If you are going home after surgery, a licensed marine engine driver must drive you home.? - NO public transportation without another adult if you receive anesthesia. - We recommend that an adult stay with you for 24 hours following discharge. - We also recommend that you do not drive, make important decision, drink alcoholic beverages, or take any drugs that were not prescribed by your health care provider for at least 24 hours after your discharge time. Follow any additional instructions given to you from your surgeon. Telephone instructions given to ___PATIENT and asked if any additional questions and then verbalized understanding. Patient advised to call surgeon office or pre surgery nurse liaison [phone] if any additional questions.
[2025-03-09] VITALS (8 sets, daily range): BP systolic 119–130; BP diastolic 75–84; PULSE 45–63; RESP 12–18; TEMP 36.2–36.4; O2SAT 95–100; BMI 25.7
--- NOTE | ~2025-03-09 | XR_ITS ---
XR abdomen/kub 1V 03/09/2025 06:41 Indication: Renal stones. Lithotripsy. Procedure: KUB Comparison: Comparison to multiple prior studies sequentially, with oldest reviewed study dated 01/08. Findings: There are multiple bilateral renal stones. There is a right internal ureteral stent in expe cted. Bowel gas pattern nonobstructive. Moderate colonic fecal loading. Lung bases unremarkable. No a cute osseous abnormality. Impression: 1: Bilateral nephrolithiasis. Right internal ureteral stent in expected position. Reviewed, dictated and finalized at location B. Impression: 1: Bilateral nephrolithiasis. Right internal ureteral stent in expected positio n.
--- OUTSIDE RECORDS SUMMARY | 2025-03-09 02:04 | XMS_ITS | Clinical Summary ---
Author Organization [facility] [address] Address [address] [place] [address] Care Team Providers Care Finisher Accordion Name Role Phone Linda Gupta COMPUTERIZED MILL MILL RECORDER Primary Care Provider + Allergies Active Allergy [...] on file Legal Sex Male 12:11 AM AUDIT TECH Gender Identity Not on file Sexual Orientation [...] patient's age to complete this topic Insurance [facility] CHOICE PLUS Care Teams Finisher Accordion Relationship Specialty Start Date End Date Linda Gupta NP PCP - General Nurse Practitioner 03/17/18
--- OUTSIDE RECORDS SUMMARY | 2025-03-09 02:05 | XMS_ITS | Clinical Summary ---
Author Organization [facility] Address [address] [facility] [place] [address] Care Team Providers Care Sales Expert Name Role Phone Paty Tellez MD Primary Care Provider [phone] Source Comments [facility],non-owned Affiliates and Associated Physician Practices is amultiple site organization consisting of ambulatory clinics and hospital sitesin [place] and [place]. This disclosure is being madepursuant to the Care Everywhere program and may not contain all information available regarding this patient. 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 AETNA SELF PAY NO INSURANCE Member Subscriber Plan / Payer (Ef fective for All Dates) Name:Juli Chavarria Member ID:Not on file Relation to Subscriber:Not on file Name:JULI CHAVARRIA Subscriber ID:Not on file (Home) Address: [address] [place] [address] [place] [address] Payer ID:Not on file Group ID:Not on file Type:Self Pay Address: [place], [place] Care Teams Sales Expert Relationship Specialty Start Date End Date Paty Tellez MD [address] [place] [phone] PCP - General Family Medicine 08/31/14
--- OUTSIDE RECORDS SUMMARY | 2025-03-09 02:05 | XMS_ITS | Data Portability ---
Author Organization [facility], Main Office Address [address] [place] [address] Care Team Providers Care Canal Boat Captain Name Role Phone IVAN MCCARTHY Urologist Assessment No assessment recorded. Plan of Treatment Reminders Order Date Submit Date Provider Last Modified By Organization Details Last Modified Time Details Appointments None recorded . Lab PSA, serum or plasma 023 03/02/[address] (Lab), [address] [place], [address], 3 08:13:43 CMP, serum or plasma 023 03/02/20 23 [facility] (Lab), [address] [place], [address], 3 14:26:01 TSH, serum, reflex free T4 023 03/02/[address] (Lab), [address] [place], [address], 3 08:13:43 lipid panel, serum 023 03/02/[address] (Lab), [address] [place], [address], 3 08:13:42 testoste akanksha, free + total, serum 023 03/02/[address] (Lab), [address] [place], [address], 3 08:13:43 Referral None recorded . Procedures None recorded . Surgeries None recorded . Imaging None recorded . Medication Orders None recorded . Patient TargetsNo targets recorded. Patient Instructions Encounter Date Encounter Id Patient Instructions Last Modified By Organization Details Last Modified Time 03/02/2023 [id number] fu in 3 mo for thyroid, htn, [...] Address Organization Details Recorded Time Feeling stressed [id number] Completed Not Available [facility] 3 07:32:05 Fluid level behind tympanic membrane Active Not Available [facility] 3 07:32:05 Headache 92238498 Completed Not Available [facility] 3 07:32:05 Family history of Cardiovasc ular disease 356952588 Active 2017 Not Available [facility] 3 07:32:05 Enlarged submandibu lar lymph gland 410928698 Active 2017 Not Available [facility] 3 07:32:05 Low back pain 211926088 Completed Not Available [facility] 3 07:32:06 Pain in left knee Active 2019 Not Available [facility] 3 07:32:06 Dehydratio n 63648093 Active Not Available [facility] 3 07:32:06 Elevated blood-pres sure reading without diagnosis of hypertensi on 737149015 Completed 201611/11/2018 Not Available [facility] 3 07:32:06 Sleep disorder 42726692 Completed Not Available [facility] 3 07:32:06 Hypothyroi dism 38339977 Active Not Available [facility] 3 07:32:06 Hyperlipid emia 83932525 Active Not Available [facility] 3 07:32:06 Essential hypertensi on 03892886 Active 2016 Not Available [facility] 3 07:32:06 Venous stasis 87871630 Active Not Available [facility] 3 07:32:06 Posterior rhinorrhea 88343924 Active Not Available [facility] 3 07:32:07 Fatigue 74223579 Completed 201711/11/2018 Linda Gupta NP [address] [facility], [place], [address] , [employer] 3 17:44:40 Fatigue 05708305 Active 2022 Linda Gupta NP [address], [place], [address] , [employer] 3 17:44:40 Problem Notes None recorded. Medical Equipment None Reported. Allergies Allergen ID Allergen Name Allergen Category Reaction Reaction Severity Criticality Documentation Date Start Date Code Code System Note Provider Name and Address Organization Details Recorded Time 39523 Product containin g penicilli n (product) medicatio n Not available Not available Not available 11/25/2022 86376 8001 SNOMED Not Available [facility] 3 07:39:31 Medications Name Sig Start Date [...] Updated DateTime 3 182.88 cm 25.3 kg/m2 70924.2 8 g 97.9 [degF] 57 /min 16 /min 94 % 94 % 158 mm[Hg] 96 mm[Hg] Linda Juarez RN [place] - [facility] 3 17:32:38 Date Recorded Body mass index (BMI) Body height Oxygen saturation Oxygen saturation in Arterial blood by Pulse oximetry Heart rate Respiratory rate Body temperature Body weight Systolic blood pressure Diastolic blood pressure Provider Name and Address Organization Details Last Updated DateTime 2 25.2 kg/m2 182.88 cm 98 % 98 % 68 /min 16 /min 97.5 [degF] 77054.1 8 g 126 mm[Hg] 76 mm[Hg] Not Available [employer] 07:30:23 Social History Question Answer Notes LastModified by Organizat ion Details LastModified Time Tobacco Smoking Status Never Smoker Linda Juarez RN [facility], [facility] 03/02/2023 17:33:26 Do You Have An [...] not available 03/02/2023 Where Do You Live? [facility] Information not available 03/02/2023 Do You Have A Medical Power Of Wildlife Refuge Specialist? 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 Heavy Information not available 03/02/2023 Mental Status Question Answer Note LastModified by Organization D etails LastModified Time Do you feel stressed (tense, restless, nervous, or anxious, or unable to sleep at night)? [id number] Information not available 03/02/2023 Family History Nothing Reported. Medical History Condition Response HIGH CHOLESTEROL / HYPERLIPIDEMIA Y HYPERTHYROIDISM Y HYPERTENSION Y Immunizations Vaccine Type Date Status Note Provider Nam e and Address Organization Details Recorded Time Tdap 03/23/2011 completed Not Available [facility] 11/25/2022 07:39:25 Tdap 08/28/2022 completed Not Available [facility] 11/25/2022 07:39:25 Past Encounters Encounter ID Performer Location Encounter Start Date Encounter Closed Date Diagnosis/Indication Diagnosis SNOMED-CT Code Diagnosis ICD10 Code Diagnosis Note [id number] Hussein Hollins MD [address] [address] 08/28/2022 00:00:00 08/28/2022 12:03:56 [id number] Linda Gupta NP [facility] [address] [place] [address] 03/02/2023 17:20:40 03/02/2023 18:10:31 Essential hypertension 90667493 I10 <2 gm sodium diet.Losar elias 100 mg po daily.Amlo dipine 10 mg po daily.Take medication s routinely- bp 160/92 today. BP goal 130/80. If cp, sob, blurred vision, go to er for eval. Hyperlipidemia 75514625 E78.5 Atorvastat in 40 mg po nightly.Lo w fat diet. Hypothyroidism 39279353 E03.9 Levothyrox ine 150 mcg po daily. Adult heal th examination 245920360 Z00.00 Encouraged well balanced meals Screening for malignant neoplasm of prostate 772127209 Z12.5 Seeing urology. Screening for malignant neoplasm of colon 320695349 Z12.11 Had colonoscop y in 2020. Was good. FU in 10 years. Fatigue 93322273 R53.83 low libido and fatigue. Urology seen, but recommende d testostero ne levels. Health Concerns Section Related Observation LastModified by Organization Detai ls LastModified Time None Recorded Concern Status LastModified by Organization Details LastModified Time None Recorded Advance Directives Directive N: Payers Insurance Date Sequence Insurance Name Policy Number Policy Lacy Covered Member ID Lacy Member ID Guarantor Name 03/08/2023 1 [facility] [id number] Eulalio Chavarria [id number] Eulalio Chavarria Notes Date Note Type Note [...] low fat diet. Seeing dr. Mccarthy with [facility]. Linda Gupta NP [address] [facility] [address], [place], [address], [facility] [employer] [facility] 03/02/2023 18:08:07
--- OUTSIDE RECORDS SUMMARY | 2025-03-09 02:05 | XMS_ITS | Referral Summary ---
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
--- OUTSIDE RECORDS SUMMARY | 2025-03-09 02:05 | XMS_ITS | Continuity of Care Document ---
Author Organization [facility] Address [address] [place] [address] Phone Care Team Providers Care Driller And Broacher Name Role Phone Russell Eid MD Unavailable Unavailable Procedures Procedure Date US XTR NON-VASC COMPLETE Advance Directives Directive Yes / No Effective Date File Name No Information Encounters Encounter Description Practice Location Reason(s) For Visit Diagnoses Date Provider Providers Copied on Encounter [facility], [address], [place], [place], [address], [place] tel:[phone] [facility] No Information Ragini Wells. [address] [place], [place], [address], [place]. tel:[phone] Referring Provider: Soham Hensley [address], [place], [address]. tel:[phone] Family History Family Member Type Diagnosis Age At Onset No Information Payers Payer name Insurance type Covered constitution party ID Authoriza tion(s) [facility] CI [id number] Social History Type Description Quantity Date Captured [...]
--- NOTE | 2025-03-09 06:00 | ECG_ITS ---
Test Date: 2025-03-09 06:51:34 Measurements Intervals [place] Rate: 56 P: 56 MI: 177 QRS: 9 QRSD: 101 T: 34 QT: 442 QTc: 429 Interpretive Statements SINUS BRADYCARDIA DELAYED PRECORDIAL R/S TRANSITION BORDERLINE ECG No previous ECG available for comparison Electronically Signed On 03-09-2025 08:10:35 CDT by Shakir Aguilera D.O.
--- NOTE | 2025-03-09 06:16 | WPDHPUPDATE1 ---
History and Physical Update Update Date/Time: 03/09/25 06:16 History and Physical has been reviewed, including an updated exam of the patient. There are NO changes in the patient's condition. Risks, benefits, and alternatives have been discussed and questions answered. Patient agrees to proceed with procedure.
--- NOTE | 2025-03-09 07:03 | WPDANESEPPF ---
Anes - Initial Pre Proc Eval Procedure: Operation Date: 03/09/25 08:30 Proposed Procedures p Right Extracorporeal Shock Wave Lithotripsy - Richard Stevenson MD s Cystoscopy with Right Stent Removal - Richard Stevenson MD Date/Time: 03/09/25 07:03 Surgeon: Richard Stevenson MD Pre Op Diagnosis: Right Ureteral Stone Patient Data Age: 54 Gender: M Height: 1.83 m Weight: 88 kg Allergies Allergy/AdvReac Type Severity Reaction Status Date / Time Penicillins Allergy Unknown Swelling Verified 03/06/25 08:33 Home Medications ?Medication ?Instructions ?Recorded ?Confirmed ?Type levothyroxine 150 mcg tablet 150 mcg PO DAILY #90 tabs 08/04/24 03/06/25 Rx losartan 100 mg tablet 100 mg PO QAM #90 tabs 11/14/24 03/06/25 Rx amlodipine 10 mg tablet 10 mg PO DAILY 02/01/25 03/06/25 History atorvastatin 20 mg tablet 20 mg PO DAILY 03/06/25 03/06/25 History multivitamin (Multiple Vitamins 1 tablet PO DAILY 03/06/25 03/06/25 History tablet) Patient hx anesthesia problems: none Family hx anesthesia problems: none Results Review: All pre-operative results and documents have been reviewed as part of the pre-operative evaluation. [facility] Past Medical History Medical History Nephrolithiasis Hypothyroidism Hypertension Dyslipidemia Surgical History Surgical History Hx of tonsillectomy History of arthroscopy of left shoulder S/P left knee arthroscopy Family History Family History Father Hypertension Heart disease Social History Social History Social History: 11/14/24 very confident with medical forms Smoking status: Never smoker Alcohol intake: never Substance use: never Substance use type: does not use Do You Feel Safe in your Home?: Yes Lack of Transportation: No Lack of Food: Never True Current Housing: I Have Housing Concerned About Future Housing: No Difficulty Paying Gas/Electric Bills: No Difficulty Paying for Meds: No Currently Unemployed: No Education: Bachelor's Degree Difficulty w/ Childcare or Family Care: No Living arrangements: with family Additional living arrangements comments: SON Occupation/Education: occupation Additional occupation/education comments: [place] at [employer] Gender identity (if verbalized by the patient): Male Sexual Orientation (if Verbalized by the Patient): Straight or Heterosexual Spiritual care concerns: No Agree to blood products: Yes Anes - Eval Final PreProcedure Day of Procedure 03/09/25 07:03 Patient weight: overweight Heart: regular rate and rhythm Lungs: clear to auscultation Airway: Mallampati scale class II Neurological: alert and oriented Last oral intake: >/= 8 hours ASA classification: II Emergent: no Anesthetic plan: proceed Anesthesia type and monitoring: general LMA and standard monitoring Results Review: All pre-operative results and documents have been reviewed as part of the pre-operative evaluation. Informed Consent: The patient's anesthetic plan and its attendant risks and benefits were discussed with the patient/family/POA. Questions were solicited and answers provided to the satisfaction of the patient/family/POA.
[2025-03-09] MEDS: LACTATED RINGERS 1,000 ML 30 ML IV CONT ×2 (07:15→09:31)
[2025-03-09] MEDS: ceFAZolin 2 GM/D5W 50 ML 2 GM/50 ML BAG IVPB (08:23)
[2025-03-09] MEDS: LIDOCAINE 2% GEL UROJET 10 ML PKG MUCOUS MEM (08:40)
--- NOTE | 2025-03-09 08:43 | W.PM.PROC2 ---
Procedure Note - Detailed Date of Procedure 03/09/25 Pre-op Diagnosis Right Ureteral Stone Post-op Diagnosis Same Procedure Performed Cystoscopy, right ureteral stent removal, right ESWL Surgeon Richard Stevenson MD Anesthesia General Description of Procedure The patient was brought to the operative suite where he was placed in the supine position on the Dornier lithotripter table. Flexible cystoscopy was undertaken with a 16F flexible cystoscopy. There were no urethral strictures. The prostatic urethra estimated length was []cm. There was no obstruction of the prostatic urethra with no median lobe enlargement. The bladder mucosa was normal and there was a single, orthotopic ureteral orifice bilaterally. The tip of the indwelling ureteral stent was grasped and the stent was removed with ease. The patient was then repositioned in the supine position with the focal point of the lithotriptor on a 6-7mm left mid-ureteral calculus. A total of 2500 shocks were delivered at a power setting of 4. There appeared to be good fragmentation of the stone. The patient tolerated the procedure well and was taken to the recovery room in good condition. Drains No Packing No Pathology None sent Complications No immediate complications Condition Stable
[2025-03-09] MEDS: oxyCODONE HCL (*CRX) 5 MG TAB IR PO (10:05)
== END 2025-03-09 10:39 | disposition home or self-care (01) ==
PROVIDERS: PCP Nurse Practitioner Family; Visit Provider Urology
PROC: (CPT 50590; principal; 2025-03-09 08:30)
PROC: (CPT 52310; 2025-03-09 08:30)
DX: N20.1 Calculus of ureter (principal); E78.5 Hyperlipidemia, unspecified; I10 Essential (primary) hypertension; E03.9 Hypothyroidism, unspecified; Z79.891 Long term (current) use of opiate analgesic; Z98.890 Other specified postprocedural states; Z82.49 Family history of ischemic heart disease and other diseases of the circulatory system
CPT/HCPCS: 50590; 52310; 74018; 93005; A9270; J0690; J1100; J2405; J2704; J7030; J7120

== ENCOUNTER 2025-05-01 09:08 | Outpatient (CLI) | payer OTHER, SELFPAY ==
--- NOTE | ~2025-05-01 | XR_ITS ---
EXAMINATION: XR abdomen/kub 1V DATE: 05/01/2025 09:22 INDICATION: Nephrolithiasis TECHNIQUE: A supine view of the abdomen on 2 radiographs was obtained. COMPARISON: 03/09/2025 FINDINGS: Likely interval lithotripsy the right kidney with 3 residual small stone fragments in and the inferio r right kidney the largest measuring 3 x 1 mm. The previously seen right internal ureteral stent has been removed. No stones or stone fragments evident along the course of the right ureter. No change in 3 larger stones in the left kidney 3 mm at the upper pole. Similar there are no stones seen along th e course of the left ureter. Unchanged pattern of phleboliths in the pelvis. Normal bowel gas pattern . Severe lower lumbar spondylosis. Mild to moderate bilateral hip osteoarthritis. Chronic heterotopic ossification extending caudally from the right superior ramus likely along the proximal abductors. IMPRESSION: 1. Unchanged left nephrolithiasis and interval right lithotripsy with 3 residual small fragments at t he lower pole of the right kidney. Reviewed, dictated and finalized at location A. IMPRESSION: 1. Unchanged left nephrolithiasis and interval right lithotripsy with 3 residua l small fragments at the lower pole of the right kidney.
== END 2025-05-01 09:09 | disposition home or self-care (01) ==
PROVIDERS: PCP Urology; Visit Provider Urology
DX: N20.1 Calculus of ureter (principal)
CPT/HCPCS: 74018

== ENCOUNTER 2025-07-16 17:21 | Outpatient (CLI) | payer OTHER, SELFPAY ==
[2025-07-16 18:07] LABS: INR 1.2; Prothrombin Time 14.9 Seconds (11.1-14.7)
[2025-07-16 18:08] LABS: Partial Thromboplastin Time 25.9 Seconds (22.3-36.8)
--- OUTSIDE RECORDS SUMMARY | 2025-07-16 19:04 | XMS_ITS | Clinical Summary ---
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
--- OUTSIDE RECORDS SUMMARY | 2025-07-16 19:04 | XMS_ITS | Clinical Summary ---
Author Organization [facility] Address [address] [place] [address] Care Team Providers Care Cable Worker Helper Name Role Phone Paty Tellez MD Primary Care Provider [phone] Source Comments [facility],non-owned Affiliates and Associated Physician Practices is amultiple site organization consisting of ambulatory clinics and hospital sitesin [place], [place], [place] and [place]. This disclosure is being madepursuant to the Care Everywhere program and may not contain all information available regarding this patient. 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 Not on file Not on file Not on file Last Filed Vital Signs Vital Sign Reading Time Taken Comments Blood Pressure - - Pulse - - Temperature - - Respiratory Rate - - Oxygen Saturation - - Inhaled Oxygen Concentration - - Weight 81.6 kg (180 lb) 08/31/2014 11:44 AM SADDLE AND HARNESS MAKER Height 182.9 cm (6') 08/31/2014 11:44 AM 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 HARNESS MAKER Body Mass Index 24.41 08/31/2014 11:44 AM 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 AND HARNESS MAKER Plan of Treatment Health Maintenance Due Date [...] 12/13/2019 ZOSTER VACCINE (1 of 2) 12/13/2019 DEPRESSION SCREENING 09/27/2024 COVID-19 VACCINE (1 - 2023-2 5 season) 2025 INFLUENZA VACCINE (#1) 2025 HIB VACCINE Aged Out No longer [...] patient's age to complete this topic Insurance [facility] [employer] SELF PAY NO INSURANCE Member Subscriber Plan / Payer (Ef fective for All Dates) Name:Juli Chavarria Member ID:Not on file Relation to Subscriber:Not on file Name:JULI CHAVARRIA Subscriber ID:Not on file (Home) Address: [address] [place] [address] [place] [address] Payer ID:Not on file Group ID:Not on file Type:Self Pay Address: [place], [place] Care Teams Cable Worker Helper Relationship Specialty Start Date End Date Paty Tellez MD [address] [place] [phone] PCP - General Family Medicine 08/31/14
== END 2025-07-16 17:22 | disposition home or self-care (01) ==
LOC: ANHLAB 17:22
PROVIDERS: PCP Nurse Practitioner Family; Visit Provider Urology
DX: N20.0 Calculus of kidney (principal); Z01.818 Encounter for other preprocedural examination
CPT/HCPCS: 36415; 85610; 85730; 87086

== ENCOUNTER 2025-07-20 01:50 | Day surgery (SDC) | payer OTHER, SELFPAY ==
--- NOTE | 2025-07-11 12:54 | PM.HPGS ---
History of Present Illness History of Present Illness Consent: Risks, benefits, and alternatives have been discussed and questions answered. Patient agrees to proceed with procedure. Chief complaint: left renal stone Narrative: Eulalio Chavarria is a 54 year old male who did great with right ESWL in his past several small fragments. ?He has 2 stones in his left kidney which need treatment so we will set up left ESWL. ?In the interval will do a metabolic stone evaluation and get a KUB. ?I will wait to see the KUB before scheduling left ESWL Serum met. eval.: WNL KUB: ?Right kidney stone looks great. ?There is just 1 tiny 1-2 mm residual fragment We will schedule left ESWL Review of Systems Cardiovascular: Cardiovascular: Denies chest pain, Denies lightheadedness, Denies palpitations and Denies dyspnea Respiratory: Respiratory: Denies dyspnea Gastrointestinal: Gastrointestinal: Denies diarrhea, Denies nausea and Denies vomiting Genitourinary: Genitourinary: Denies hematuria and Denies dysuria Endocrine: Endocrine: Denies palpitations [facility] Past Medical History Medical History Nephrolithiasis Hypothyroidism Hypertension Dyslipidemia Surgical History Surgical History Hx of tonsillectomy History of arthroscopy of left shoulder S/P left knee arthroscopy Family History Family History Father Hypertension Heart disease Social History Social History Social History: 11/14/24 very confident with medical forms Smoking status: Never smoker Alcohol intake: never Substance use: never Substance use type: does not use Do You Feel Safe in your Home?: Yes Lack of Transportation: No Lack of Food: Never True Current Housing: I Have Housing Concerned About Future Housing: No Difficulty Paying Gas/Electric Bills: No Difficulty Paying for Meds: No Currently Unemployed: No Education: Bachelor's Degree Difficulty w/ Childcare or Family Care: No Living arrangements: with family Additional living arrangements comments: SON Occupation/Education: occupation Additional occupation/education comments: [employer] Gender identity (if verbalized by the patient): Male Sexual Orientation (if Verbalized by the Patient): Straight or Heterosexual Spiritual care concerns: No Agree to blood products: Yes Meds Home Medications and Allergies Home Medications ?Medication ?Instructions ?Recorded ?Confirmed ?Type losartan 100 mg tablet 100 mg PO QAM #90 tabs 11/14/24 03/06/25 Rx amlodipine 10 mg tablet 10 mg PO DAILY 02/01/25 03/06/25 History multivitamin (Multiple Vitamins 1 tablet PO DAILY 03/06/25 03/09/25 History tablet) hydrocodone 5 mg-acetaminophen 325 1 - 2 tablet PO Q6H PRN pain #20 03/09/25 Rx mg tablet tabs atorvastatin 20 mg tablet 20 mg PO DAILY #90 tabs 05/02/25 Rx levothyroxine 150 mcg tablet 150 mcg PO DAILY #90 tabs 07/10/25 Rx Allergies Allergy/AdvReac Type Severity Reaction Status Date / Time Penicillins Allergy Unknown Swelling Verified 03/09/25 07:25 Exam Const: General: no acute distress Resp: Effort & Inspection: normal respiratory effort GI: Inspection: non-distended GI Palp: No abdominal tenderness and No Guarding due to palpation present (GI) Auscultation: normal bowel sounds Assessment and Plan Assessment and plan (1) Bilateral renal stones: Code(s): N20.0 - Calculus of kidney Status: Acute Assessment and Plan: Left ESWL
[2025-07-16 14:22] VITALS: BMI 25.8
--- NOTE | 2025-07-16 14:27 | PC.NURSE ---
[facility] has started construction of its new state of the art ER which will open Spring 2026. With this, we anticipate parking may be a challenge for some our surgical patients and families. Parking spaces are limited but are available for all Surgical, obstetrics, and ER patients sharing this lot. If you arrive and find you are having a hard time finding a parking space, please note that we understand the challenges, please drive around the hospital and park near Hospital Entrance 1. When you enter this entrance, you can ask a volunteer to direct or take you back to the surgical waiting area to check in. We appreciate everyone?s understanding of these expected challenges while we build for your future. Report to the Outpatient Waiting Room, entrance under the green pavilion located off [address], at time _0630_ on date _[id number]_. Planned Procedure Time: _0830_.? Time changes happen often and if your time is changed the preop area will call you the afternoon before. - You and your visitor will be asked to self-screen and do not enter if you have any COVID symptoms. Please call surgeon if you need to reschedule. - A mask is optional within the hospital at this time. Patients may have clear liquids (water, carbonated beverages, clear teas, apple juice) until 3 hours prior to surgery with a maximum of 20 ounces. - No food from midnight until time of surgery and no smoking, or chewing tobacco (or any form of nicotine). No chewing gum, candy or mints. Take only the following medications with a SIP of water on the morning of surgery: ___Amlodipine and Levothyroxine.____ DO NOT STOP ANY OF YOUR OTHER PRESCRIPTION MEDICATIONS PRIOR TO SURGERY EXCEPT THE FOLLOWING Hold all vitamins and supplements for 3 days per anesthesiologist. Medications to discontinue per physician Date to take last [id number] Please no make-up, nail sao tomean, hairspray, perfume, deodorant, or body powder the day of surgery.? No jewelry (including any body piercings) or valuables the day of surgery, leave them at home.? Please take a shower or bath the night before, or the morning of, surgery with an antibacterial soap.? Wear comfortable, loose fitting clothing.? - Jewelry must be removed prior to entering the operating room.? Rings and piercings that are not removed may be cut off. - The hospital will not accept responsibility for valuables.? - Please leave all valuables, including medications, at home the day of surgery. If you are going home after surgery, a licensed sheet pile driver operator must drive you home.? - NO public transportation without another adult if you receive anesthesia. - We recommend that an adult stay with you for 24 hours following discharge. - We also recommend that you do not drive, make important decision, drink alcoholic beverages, or take any drugs that were not prescribed by your health care provider for at least 24 hours after your discharge time. Follow any additional instructions given to you from your surgeon. Telephone instructions given to __David__and asked if any additional questions and then verbalized understanding. Patient advised to call surgeon office or pre surgery nurse liaison [phone] if any additional questions.
[2025-07-20] VITALS (9 sets, daily range): BP systolic 106–158; BP diastolic 66–95; PULSE 48–60; RESP 12–18; TEMP 36.1–36.2; O2SAT 98–100; BMI 26.0
--- NOTE | ~2025-07-20 | XR_ITS ---
EXAMINATION: XR abdomen/kub 1V DATE: 07/20/2025 06:47 INDICATION: Renal stones TECHNIQUE: A supine view of the abdomen on 2 radiographs was obtained. COMPARISON: 05/01/2025 FINDINGS: Bilateral nephrolithiasis with 3 stones at the lower right kidney measuring up to 4 mm and 2 stones or cluster of stones at the lower pole the left kidney measuring up to 9 mm. A prior 3 mm stone at both the left kidney is no longer visualized. There is a subtle 3 mm density projecting over the junction of S5 S6 which could represent advancing the stone to the bladder or ureterovesicular junction. A couple phleboliths in the right hemipelvis. Normal bowel gas pattern. Bases are clear. Heart size is normal. Mild lumbar levocurvature with moderate spondylosis. Chronic heterotopic ossification extending caudally from the right superior ramus. IMPRESSION: 1. Bilateral nephrolithiasis unchanged aside from absence of a prior 3 mm punctate upper pole the left kidney. Subtle density projecting over the caudal sacrum could represent this stone passed into either the bladder or at ureteral vesicular junction. Reviewed, dictated and finalized at location A. IMPRESSION: 1. Bilateral nephrolithiasis unchanged aside from absence of a prior 3 mm punct ate upper pole the left kidney. Subtle density projecting over the caudal sacru m could represent this stone passed into either the bladder or at ureteral vesi cular junction.
--- OUTSIDE RECORDS SUMMARY | 2025-07-20 01:53 | XMS_ITS | Data Portability ---
Author Organization [facility], Main Office Address [address] [place] [address] Care Team Providers Care Rn Clinical Research Name Role Phone ETRENCEIVAN Urologist Assessment No assessment recorded. Plan of Treatment Reminders Order Date Submit Date Provider Last Modified By Organization Details Last Modified Time Details Appointments None recorded . Lab PSA, serum or plasma 023 03/02/[address] (Lab), [address] [place], [address], 3 08:13:43 CMP, serum or plasma 023 03/02/[address] [facility] (Lab), [address] [place], [address], 3 14:26:01 TSH, serum, reflex free T4 023 03/02/[address] (Lab), [address] [place], [address], 3 08:13:43 lipid panel, serum 023 03/02/[address] (Lab), [address] [place], [address], 3 08:13:42 testoste akanksha, free + total, serum 023 03/02/[address] (Lab), [address] [place], [address], 3 08:13:43 Referral None recorded . Procedures None recorded . Surgeries None recorded . Imaging None recorded . Medication Orders None recorded . Patient TargetsNo targets recorded. Patient Instructions Encounter Date Encounter Id Patient Instructions Last Modified By Organization Details Last Modified Time 03/02/2023 [id number] fu in 3 mo for thyroid, htn, [...] Address Organization Details Recorded Time Feeling stressed 120589303 Completed Not Available [facility] 3 07:32:05 Fluid level behind tympanic membrane Active Not Available [facility] 3 07:32:05 Headache 02657774 Completed Not Available [facility] 3 07:32:05 Low back pain 372206615 Completed Not Available [facility] 3 07:32:06 Dehydratio n 80998091 Active Not Available [facility] 3 07:32:06 Sleep disorder 78492669 Completed Not Available [facility] 3 07:32:06 Hypothyroi dism 65528023 Active Not Available [facility] 3 07:32:06 Hyperlipid emia 50603319 Active Not Available [facility] 3 07:32:06 Venous stasis 65507724 Active Not Available [facility] 3 07:32:06 Posterior rhinorrhea 50880326 Active Not Available [facility] 3 07:32:07 Elevated blood-pres sure reading without diagnosis of hypertensi on 087405825 Completed 201611/11/2018 Not Available [facility] 3 07:32:06 Essential hypertensi on 36008297 Active 2016 Not Available [facility] 3 07:32:06 Family history of Cardiovasc ular disease 895152893 Active 2017 Not Available [facility] 3 07:32:05 Enlarged submandibu lar lymph gland 034655258 Active 2017 Not Available [facility] 3 07:32:05 Fatigue 39649154 Completed 201711/11/2018 Linda Gupta NP [address], [place], [address] , [facility] 3 17:44:40 Pain in left knee Active 2019 Not Available [facility] 3 07:32:06 Fatigue 34316774 Active 2022 Linda Gupta NP [address], [address], [place], [address] , [facility] 3 17:44:40 Problem Notes None recorded. Medical Equipment None Reported. Allergies Allergen ID Allergen Name Allergen Category Reaction Reaction Severity Criticality Documentation Date Start Date Code Code System Note Provider Name and Address Organization Details Recorded Time 62605 Product containin g penicilli n (product) medicatio n Not available Not available Not available 11/25/2022 25553 8001 SNOMED Not Available [facility] 3 07:39:31 Medications Name Sig Start [...] verbal numeric rating [Score] - Reported Systolic And Diastolic Provider Name and Address Organization Details Last Updated DateTime 3 182.88 cm 25.3 kg/m2 57960.2 8 g 97.9 [degF] 57 /min 16 /min 94 % 94 % 0 158/96 mm[Hg] Linda Juarez RN [place] - [facility] 3 17:32:38 Date Recorded Body mass index (BMI) Body height Oxygen saturation Oxygen saturation in Arterial blood by Pulse oximetry Heart rate Respiratory rate Body temperature Body weight Systolic And Diastolic Provider Name and Address Organization Details Last Updated DateTime 2 25.2 kg/m2 182.88 cm 98 % 98 % 68 /min 16 /min 97.5 [degF] 97761.1 8 g 126/76 mm[Hg] Not Available [facility] 07:30:23 Social History Question Answer Notes LastModified by Organizat ion Details LastModified Time Tobacco Smoking Status Never Smoker Linda Juarez RN [facility], [place] - [facility] [employer] [facility] 03/02/2023 17:33:26 Do You Have [...] not available 03/02/2023 Where Do You Live? [facility] Information not available 03/02/2023 Do You Have A Medical Power Of Book Store Associate? 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 Heavy Information not available 03/02/2023 Mental Status Question Answer Note LastModified by Organization D etails LastModified Time Do you feel stressed (tense, restless, nervous, or anxious, or unable to sleep at night)? [id number] Information not available 03/02/2023 Family History Nothing Reported. Medical History Condition Response HYPERTHYROIDISM Y HYPERTENSION Y HIGH CHOLESTEROL / HYPERLIPIDEMIA Y Immunizations Vaccine Type Date Status Note Provider Nam e and Address Organization Details Recorded Time Tdap 03/23/2011 completed Not Available [facility] 11/25/2022 07:39:25 Tdap 08/28/2022 completed Not Available [facility] 11/25/2022 07:39:25 Past Encounters Encounter ID Performer Location Encounter Start Date Encounter Closed Date Diagnosis/Indication Diagnosis SNOMED-CT Code Diagnosis ICD10 Code Diagnosis IMO Codes Diagnosis Note [id number] Hussein Hollins MD [facility] [address] [address] 08/28/2022 00:00:00 08/28/2022 12:03:56 [id number] Linda Gupat NP [facility] [address] [place] [address] 03/02/2023 17:20:40 03/02/2023 18:10:31 Essential hypertension 68378521 I10 <2 gm sodium diet.Losar elias 100 mg po daily.Amlo dipine 10 mg po daily.Take medication s routinely- bp 160/92 today. BP goal 130/80. If cp, sob, blurred vision, go to er for eval. Hyperlipidemia 07514811 E78.5 Atorvastat in 40 mg po nightly.Lo w fat diet. Hypothyroidism 78031445 E03.9 Levothyrox ine 150 mcg po daily. Adult heal th examination 164673431 Z00.00 Encouraged well balanced meals Screening for malignant neoplasm of prostate 665854309 Z12.5 Seeing urology. Screening for malignant neoplasm of colon 513292806 Z12.11 Had colonoscop y in 2020. Was good. FU in 10 years. Fatigue 91364901 R53.83 low libido and fatigue. Urology seen, but recommende d testostero ne levels. Health Concerns Section Related Observation LastModified by Organization Detai ls LastModified Time None Recorded Concern Status LastModified by Organization Details LastModified Time None Recorded Advance Directives Directive N: Payers Insurance Date Sequence Insurance Name Policy Number Policy Lacy Covered Member ID Lacy Member ID Guarantor Name 03/08/2023 1 [facility] [id number] Eulalio Chavarria [id number] Eulalio Chavarria Notes Date Note Type Note Provider Name and Address Organization Details Recorded Time 03/02/2023 text/html Here for wellness visit. States he hasn't been consistent with meds. Has missed several doses lately. Aware he needs to get better. HTN- Took both losartan and amlodipine. Hasn't been checking home bp.Thyroid- Levothyroxine po daily. Missed few doses in a row.lipid- Trying low fat diet. Seeing dr. Mccarthy with [facility]. Linda Gupta NP [address] [facility] [facility] [address], [place], [address], [facility] [employer] [facility] 03/02/2023 18:08:07
--- OUTSIDE RECORDS SUMMARY | 2025-07-20 01:53 | XMS_ITS | Clinical Summary ---
Author Organization [facility] Address [address] [place] [address] Care Team Providers Care State Archivist Name Role Phone Paty Tellez MD Primary Care Provider [phone] Source Comments [facility] [facility],non-owned Affiliates and Associated Physician Practices is amultiple site organization consisting of ambulatory clinics and hospital sitesin [place], [place], [place] and [place]. This disclosure is being madepursuant to the Care Everywhere program and may not contain all information available regarding this patient. 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 Not on file Not on file Last Filed Vital Signs Vital Sign Reading Time Taken Comments Blood Pressure - - Pulse - - Temperature - - Respiratory Rate - - Oxygen Saturation - - Inhaled Oxygen Concentration - - Weight 81.6 kg (180 lb) 08/31/2014 11:44 AM DIRECTOR OF CLOUD SERVICES Height 182.9 cm (6') 08/31/2014 11:44 AM DIRECTOR OF CLOUD SERVICES Body Mass Index 24.41 08/31/2014 11:44 AM DIRECTOR OF CLOUD SERVICES Plan of Treatment Health Maintenance Due Date [...] patient's age to complete this topic Insurance [facility] [employer] SELF PAY NO INSURANCE Member Subscriber Plan / Payer (Ef fective for All Dates) Name:Juli Chavarria Member ID:Not on file Relation to Subscriber:Not on file Name:JULI CHAVARRIA Subscriber ID:Not on file (Home) Address: [address] [place] [address] [place] [address] Payer ID:Not on file Group ID:Not on file Type:Self Pay Address: [place], [place] Care Teams State Archivist Relationship Specialty Start Date End Date Paty Tellez MD [address] [place] [phone] PCP - General Family Medicine 08/31/14
--- NOTE | 2025-07-20 06:26 | WPDHPUPDATE1 ---
History and Physical Update Update Date/Time: 07/20/25 06:26 History and Physical has been reviewed, including an updated exam of the patient. There are NO changes in the patient's condition. Risks, benefits, and alternatives have been discussed and questions answered. Patient agrees to proceed with procedure.
--- NOTE | 2025-07-20 06:57 | WPDANESEPPF ---
Anes - Initial Pre Proc Eval Procedure: Operation Date: 07/20/25 08:30 Proposed Procedures p Left Extracorporeal Shock Wave Lithotripsy - Richard Stevenson MD Date/Time: 07/20/25 06:57 Surgeon: Richard Stevenson MD Pre Op Diagnosis: left renal stone Patient Data Age: 54 Gender: M Height: 1.83 m Weight: 86.4 kg Allergies Allergy/AdvReac Type Severity Reaction Status Date / Time Penicillins Allergy Unknown Swelling Verified 07/16/25 14:21 Home Medications ?Medication ?Instructions ?Recorded ?Confirmed ?Type losartan 100 mg tablet 100 mg PO QAM #90 tabs 11/14/24 07/16/25 Rx amlodipine 10 mg tablet 10 mg PO DAILY 02/01/25 07/16/25 History multivitamin (Multiple Vitamins 1 tablet PO DAILY 03/06/25 07/16/25 History tablet) atorvastatin 20 mg tablet 20 mg PO DAILY #90 tabs 05/02/25 07/16/25 Rx levothyroxine 150 mcg tablet 150 mcg PO DAILY #90 tabs 07/10/25 07/16/25 Rx Patient hx anesthesia problems: none Family hx anesthesia problems: none Results Review: All pre-operative results and documents have been reviewed as part of the pre-operative evaluation. [facility] Past Medical History Medical History Nephrolithiasis Hypothyroidism Hypertension Dyslipidemia Surgical History Surgical History Hx of tonsillectomy History of arthroscopy of left shoulder S/P left knee arthroscopy Family History Family History Father Hypertension Heart disease Social History Social History Social History: 11/14/24 very confident with medical forms Smoking status: Never smoker Alcohol intake: never Substance use: never Substance use type: does not use Do You Feel Safe in your Home?: Yes Lack of Transportation: No Lack of Food: Never True Current Housing: I Have Housing Concerned About Future Housing: No Difficulty Paying Gas/Electric Bills: No Difficulty Paying for Meds: No Currently Unemployed: No Education: Bachelor's Degree Difficulty w/ Childcare or Family Care: No Living arrangements: with family Additional living arrangements comments: SON Occupation/Education: occupation Additional occupation/education comments: [place] [employer] / [employer] Gender identity (if verbalized by the patient): Male Sexual Orientation (if Verbalized by the Patient): Straight or Heterosexual Spiritual care concerns: No Agree to blood products: Yes Anes - Eval Final PreProcedure Day of Procedure 07/20/25 06:57 Patient weight: overweight Heart: regular rate and rhythm Lungs: clear to auscultation Airway: Mallampati scale class II Neurological: alert and oriented Last oral intake: >/= 8 hours ASA classification: II Emergent: no Anesthetic plan: proceed Anesthesia type and monitoring: general LMA and standard monitoring Results Review: All pre-operative results and documents have been reviewed as part of the pre-operative evaluation. Informed Consent: The patient's anesthetic plan and its attendant risks and benefits were discussed with the patient/family/POA. Questions were solicited and answers provided to the satisfaction of the patient/family/POA.
[2025-07-20] MEDS: ceFAZolin 2 GM in SODIUM CHLORIDE 0.9% IV 50 ML 100 ML IVPB (08:22)
[2025-07-20 08:32] LABS: INR 1.2; Prothrombin Time 14.9 Seconds (11.1-14.7)
--- NOTE | 2025-07-20 08:48 | W.PM.PROC2 ---
Procedure Note - Detailed Date of Procedure 07/20/25 Pre-op Diagnosis left renal stone Post-op Diagnosis Same Procedure Performed Left ESWL Surgeon Richard Stevenson MD Anesthesia General Description of Procedure The patient was brought to the operative suite where he was placed in the supine position on the Dornier lithotripsy table. The focal point of the lithotripter was placed at two 6mm left renal calculi. A total of 2500 shocks were delivered at a power setting of 4 was split between the 2 stones. There appeared to be good fragmentation of the stone. The patient tolerated the procedure well and was taken to the recovery room in good condition. Drains No Packing No Pathology None sent Complications No immediate complications
[2025-07-20] MEDS: LACTATED RINGERS 1,000 ML 30 ML IV CONT ×2 (09:00→11:08)
[2025-07-20] MEDS: oxyCODONE HCL (*CRX) 5 MG TAB IR PO (10:13)
[2025-07-20] MEDS: fentaNYL CITRATE INJ (*CRX) 100 MCG/2 ML VIAL 25 MCG IV PUSH ×4 (10:50→11:10)
[2025-07-20] MEDS: KETOROLAC 30 MG/ML VIAL (*BKC) IV PUSH (11:04)
[2025-07-20] MEDS: KETOROLAC 30 MG/ML VIAL (*BKC) IM (11:04)
== END 2025-07-20 11:30 | disposition home or self-care (01) ==
PROVIDERS: PCP Nurse Practitioner Family; Visit Provider Urology
PROC: (CPT 50590; principal; 2025-07-20 08:30)
DX: N20.0 Calculus of kidney (principal)
CPT/HCPCS: 50590; 36415; 74018; 85610; J0690; A9270; J1100; J1885; J2003; J2250; J2405; J2704; J3010; J7120